=== PATIENT | female | born 1985 | race Caucasian/White ===

== ENCOUNTER → 2017-07-21 14:58 | Outpatient (CLI) | payer OTHER, SELFPAY ==
--- NOTE | 2017-07-21 15:04 | RAD_ITS ---
STUDY: X-RAY - THORACIC SPINE REASON FOR EXAM: Female, 32 years old. Pain behind shoulder blade. TECHNIQUE: 3 view(s) of the thoracic spine were obtained. COMPARISON: None. FINDINGS: Normal kyphosis of the thoracic spine. There is no substantial scoliosis. Normal thoracic vertebrae and endplates. Normal disc space heights. The soft tissue structures are unremarkable. RAD/Thoracic Spine 3 Views IMPRESSION: No significant abnormality identified. Electronically Signed: Sam Serrano MD at 19:08 EST , Service support ,
== END ==
PROVIDERS: Family Provider Family Medicine; PCP Family Medicine; Visit Provider Family Medicine
DX: M54.6 Pain in thoracic spine (principal)
CPT/HCPCS: 72072

== ENCOUNTER → 2017-08-31 07:06 | Outpatient (CLI) | payer OTHER, SELFPAY ==
--- NOTE | 2017-08-31 07:45 | MRI_ITS ---
STUDY: MRI THORACIC SPINE WITHOUT CONTRAST REASON FOR EXAM: Female, 32 years old. right sided thoracic pain, pain beneath scapula ( internal). TECHNIQUE: Standardized fat and water weighted pulse sequences were obtained in the sagittal and axial planes. COMPARISON: None. FINDINGS: Normal kyphosis of the thoracic spine. There is no substantial scoliosis. T1-2, T2-3, T3-4, T4-5, T5-6, T6-7, T7-8, T8-9, T9-10, T10-11, T11-12: Normal endplates. Normal disc hydration, heights and morphology of the corresponding intervertebral discs. Normal central canal and intervertebral neural foramina at the corresponding levels. Normal visualized thoracic cord. The soft tissue structures are unremarkable. MRI/Spine Thoracic (Routine) IMPRESSION: Normal unenhanced MRI examination of the thoracic spine. Electronically Signed: Almas Santiago MD at 8:39 EDT Tel , Service support ,
== END ==
PROVIDERS: Family Provider Family Medicine; PCP Family Medicine; Visit Provider Family Medicine
DX: M54.6 Pain in thoracic spine (principal)
CPT/HCPCS: 72146

== ENCOUNTER → 2017-11-17 15:16 | Outpatient (CLI) | payer OTHER, SELFPAY ==
--- NOTE | 2017-11-17 15:18 | RAD_ITS ---
STUDY: X-RAY - CERVICAL SPINE REASON FOR EXAM: Female, 32 years old. Pain. TECHNIQUE: 5 view(s) of the cervical spine were obtained. COMPARISON: None FINDINGS: Normal anterior atlantoaxial articulation. Normal odontoid process. Normal cervical lordosis. Normal vertebral bodies and endplates. Normal disc space heights. Normal visualized intervertebral neuroforamina. The soft tissue structures are unremarkable. There is no demonstrated fracture of the cervical spine. RAD/Cerv Spine 4 or 5 Views IMPRESSION: Normal x-ray examination of the visualized cervical spine. Electronically Signed: Abelino Jenkins MD at 23:56 EDT , Service support ,
== END ==
PROVIDERS: Family Provider Family Medicine; PCP Family Medicine; Visit Provider Nurse Practitioner Family
DX: M54.2 Cervicalgia (principal)
CPT/HCPCS: 72050

== ENCOUNTER 2018-07-11 09:05 | Emergency (ER) | payer BC, SELFPAY ==
[2018-07-11 09:06] VITALS: BP 149/97; PULSE 114; RESP 16; TEMP 36.3; O2SAT 98; BMI 28.3
--- NOTE | 2018-07-11 09:17 | ED.VISSUMM ---
- ER Visit Summary Date of Service: 07/11/18 Chief Complaint: Headache History of Present Illness: The patient is a 33 F who presents with a headache that has been getting worse over the past week. Patient states the pain started in her neck and migrated to the occipital area of her scalp and then to the top of her head. Patient denies any trauma or injury. Patient states nothing seems to make it better or worse. Patient does admit to some mild photophobia. Patient denies any visual changes. Patient denies any paresthesias or weakness. Patient denies any nausea or vomiting. Patient denies any fevers or chills. Patient states she did go to a chiropractor but that did not help. Physical Examination: Vital signs are stable. Patient is afebrile. Patient is in no acute distress. Cranial nerves II through XII are intact. There are no focal motor or sensory deficits noted. Pupils are equal, round, reactive to light bilaterally. Extraocular muscles are intact. Funduscopic examination is benign. Neck is supple. There is paraspinal tenderness. There is no midline tenderness. There is some mild spasm of the cervical paraspinal muscles. There is good range of motion. There is no meningismus noted. Heart was regular rate and rhythm. Lungs are clear and equal bilaterally. The remaining physical exam is within normal limits. Emergency Department Course and Treatment: Patient was given injections of Toradol and Norflex here. Patient was given prescriptions for Naprosyn and Flexeril. Patient was instructed to follow-up with her primary care physician in 5-7 days. Patient understood and was agreeable with the plan. All questions were answered. Disposition: Discharge home Impression: Tension cephalgia This note was generated with [employer] dictation software. It may contain incorrect words, spelling, and punctuation that were not noted in review of the chart prior to signing ED Disposition - Plan for ED Patient: Disposition: Home or Assisted Living Diagnosis: Tension headache Instructions: ED Headache Tension Prescriptions: Cyclobenzaprine [Flexeril] 10 mg PO QHS PRN PRN #10 tab PRN Reason: Muscle Spasm Naproxen [Naprosyn] 500 mg PO BID PRN #20 tab Referrals: Baljit Leiva DO [Primary Care Provider] -
[2018-07-11] MEDS: Orphenadrine 60 MG/2 ML Ampul IM (09:29)
[2018-07-11] MEDS: Ketorolac 60 MG/2 ML Vial IM (09:30)
[2018-07-11 09:50] VITALS: PULSE 91; RESP 14; O2SAT 95
== END 2018-07-11 09:51 | disposition home or self-care (01) ==
LOC: ED 09:39
PROVIDERS: Emergency Provider Emergency Medicine; Family Provider Family Medicine; PCP Family Medicine
DX: G44.209 Tension-type headache, unspecified, not intractable (principal); M62.838 Other muscle spasm; Z72.0 Tobacco use
CPT/HCPCS: 96372; 99282

== ENCOUNTER 2018-11-06 20:12 | Emergency (ER) | payer BC, SELFPAY ==
[2018-11-06 20:12] VITALS: BP 138/90; PULSE 94; RESP 18; TEMP 36.9; O2SAT 98; BMI 30.4
[2018-11-06 21:00] LABS: Mucous, Urine 0 SEEN /hpf (<or=2+)
[2018-11-06 21:05] LABS: Color, Urine Yellow (Yellow); Glucose, Dipstick Normal (Normal); Ketone-Dipstick Negative (Negative); Leukocyte Esterase-Dipstick 500 /ul (Negative); Nitrite-Dipstick Negative (Negative); Occult Blood-Urine 250 /ul (Negative); Protein-Dipstick 30 mg/dl (Negative); Urine Bilirubin Dipstick Negative (Negative); Urine Clarity Sl. Cloudy (Clear); Urine Urobilinogen Normal (Normal)
[2018-11-06] MEDS: Ondansetron 4 MG/2 ML Vial IV (21:10)
[2018-11-06] MEDS: 0.9% Normal Saline 1,000 ML 125 ML IV (21:10)
[2018-11-06] MEDS: Ketorolac 30 MG/ML Syringe IV (21:11)
[2018-11-06] MEDS: Morphine 4 MG/ML Syringe IV (21:11)
[2018-11-06 21:15] LABS: Absolute Lymphocyte Count 4.19 X10^3/ul (0.83-4.51); Absolute Neutrophil Count 4.3 X10^3/uL (2.0-7.7); Basophil# 0.02 X10^3/uL; Basophil% 0.2 % (0-1); Differential Indicated SCAN CRITERIA MET; Eosinophil# 0.25 X10^3/uL; Eosinophils% 2.7 % (0-5); Hemoglobin 15.6 g/dl (12.0-15.0); Lymphocyte # 4.19 X10^3/ul (4.0); Lymphocyte % 44.4 % (19-41); Mean Corp Hgb Conc 34.7 g/gl (32-36); Mean Corpuscular Hgb 31.2 pg (27.0-32.0); Mean Platelet Vol. 10.2 fl (6.2-12.0); Monocyte# 0.65 X10^3/uL; Monocyte% 6.9 % (0-10); Neutrophil # 4.31 X10^3/uL (2.7-7.7); Neutrophil % 45.7 % (47-70); POSITIVE COUNT NO; POSITIVE DIFFERENTIAL NO; POSITIVE MORPHOLOGY YES; Platelet Count 210 K/mm3 (150-450); RBC Distribution Width CV 12.8 % (11.6-14.6); RBC Distribution Width SD 41.9 fl (35.1-43.9); White Blood Count 9.4 K/mm3 (4.4-11.0)
[2018-11-06 21:27] LABS: White Blood Cells 25-50 SEEN /hpf (0-5)
[2018-11-06 21:28] LABS: Bacteria 4+ /hpf (None Seen); Red Blood Cells-Urine 5-10 SEEN /hpf (0-5); Squamous Epithelial Cells - UA 50-100 SEEN /hpf (5-10)
[2018-11-06 21:34] LABS: Differential Comment SCANNED
[2018-11-06 21:37] LABS: Anion Gap 5 (5-15); BUN 14 mg/dL (7-18); BUN/Creat Ratio 16.5 RATIO (10-20); Chloride 110 mmol/L (98-107); Creatinine, Serum 0.85 mg/dL (0.55-1.02); EST Glomerular Filtration Rate 83 mL/min (>60); Est Glom Filt Rate - Afr Amer 101 mL/min (>60); Estimated Creatinine Clearance 79.33 ml/min; Glucose 86 mg/dL (74-106); Potassium 3.7 mmol/L (3.5-5.1); Sodium Level 140 mmol/L (136-145)
[2018-11-06 21:56] LABS: Internal QC Validated? YES +Cl - CLEAR BKGD; Pregnancy, Serum, hCG Quali. NEGATIVE Negative
--- NOTE | 2018-11-06 22:04 | ED.VISSUMM ---
- ER Visit Summary Date of Service: 11/06/18 Chief Complaint: [Abdominal cramping] History of Present Illness: The patient is a 33 F [resents the emergency department with abdominal cramping that started yesterday. Patient rates her pain an 8 out of 10. Patient denies any fever. She denies any blood in her stool or black tarry stool. She denies nausea or vomiting. She has not had any diarrhea. She denies urinary symptoms. Patient states that she has had some irregular periods ever since she has had her Mirena and she has frequently had similar abdominal pain and cramping in the past. Patient is tried Aleve at home without any relief of her symptoms.] Physical Examination: [HEENT-PERRLA, EOMI. Cranial nerves II through XII grossly intact. TMs clear. Mucous membranes moist. No adenopathy. Cardiovascular-regular rate and rhythm without murmur or ectopy Lungs-clear to auscultation, chest wall stable without crepitus or subcu emphysema Abdomen-normoactive bowel sounds, soft. Patient has tenderness to palpation over the suprapubic region. There is no rebound, rigidity, or perineal signs. No pain over McBurney's. Negative heel strike negative obturator sign. Extremities-intact ?4, normal range of motion, normal pulses, atraumatic] Test Results: [CBC with differential obtained showing a 9.4, hemoglobin 15.6, hematocrit 45, placed 210. Chemistries unremarkable. Urinalysis showed 500 leukocytes and 25-50 WBCs however she had 50-100 epis and +4 bacteria.] Emergency Department Course and Treatment: [She was medicated with Toradol, morphine, and Zofran. Patient had good pain relief with that. At this point I do not feel any imaging is indicated.] Treatment Plan: [Follow-up with primary care physician and CREDIT REPORTING CLERK within next 3 to 5 days. Patient will be given a prescription for a few [place] for severe pain as well as Naprosyn.] Disposition: [Discharged home stable condition.] Impression: [Abdominal pain-etiology uncertain] This note was generated with [employer] dictation software. It may contain incorrect words, spelling, and punctuation that were not noted in review of the chart prior to signing ED Disposition - Plan for ED Patient: Referrals: Baljit Leiva DO [Primary Care Provider] -
--- NOTE | 2018-11-06 22:09 | ED.DCSUM_ITS ---
- ER Visit Summary Date of Service: 11/06/18 Chief Complaint: [Abdominal cramping] History of Present Illness: The patient is a 33 F [resents the emergency department with abdominal cramping that started yesterday. Patient rates her pain an 8 out of 10. Patient denies any fever. She denies any blood in her stool or black tarry stool. She denies nausea or vomiting. She has not had any diarrhea. She denies urinary symptoms. Patient states that she has had some irregular periods ever since she has had her Mirena and she has frequently had similar abdominal pain and cramping in the past. Patient is tried Aleve at home without any relief of her symptoms.] Physical Examination: [HEENT-PERRLA, EOMI. Cranial nerves II through XII grossly intact. TMs clear. Mucous membranes moist. No adenopathy. Cardiovascular-regular rate and rhythm without murmur or ectopy Lungs-clear to auscultation, chest wall stable without crepitus or subcu emphysema Abdomen-normoactive bowel sounds, soft. Patient has tenderness to palpation over the suprapubic region. There is no rebound, rigidity, or perineal signs. No pain over McBurney's. Negative heel strike negative obturator sign. Extremities-intact ?4, normal range of motion, normal pulses, atraumatic] Test Results: [CBC with differential obtained showing a 9.4, hemoglobin 15.6, hematocrit 45, placed 210. Chemistries unremarkable. Urinalysis showed 500 leukocytes and 25-50 WBCs however she had 50-100 epis and +4 bacteria.] Emergency Department Course and Treatment: [She was medicated with Toradol, morphine, and Zofran. Patient had good pain relief with that. At this point I do not feel any imaging is indicated.] Treatment Plan: [Follow-up with primary care physician and SLITTING MACHINE OPERATOR HELPER within next 3 to 5 days. Patient will be given a prescription for a few [place] for severe pain as well as Naprosyn.] Disposition: [Discharged home stable condition.] Impression: [Abdominal pain-etiology uncertain] This note was generated with [employer] dictation software. It may contain incorrect words, spelling, and punctuation that were not noted in review of the chart prior to signing ED Disposition - Plan for ED Patient: Referrals: Baljit Leiva DO [Primary Care Provider] -
--- NOTE | 2018-11-06 22:11 | DCINST.ED_ITS ---
ED Disposition - Plan for ED Patient: Instructions: ED Abdominal Pain Unkn Cause Prescriptions: Hydrocodone Bitart/Apap 5-325 [[place] 5MG-325MG] 1 tab PO Q4H PRN PRN 2 Days #10 tab PRN Reason: Pain Referrals: Baljit Leiva DO [Primary Care Provider] - Vero Fierro MD [STAFF PHYSICIAN] - 3-5 Days
[2018-11-06 22:23] VITALS: BP 138/100; PULSE 79; RESP 16; O2SAT 98
[2018-11-06] MEDS: HYDROcodone Bitartrate/Apap 5/325 Tablet PO (22:25)
--- NOTE | 2018-11-06 22:27 | ED.RN ---
PT GIVEN WRITTEN AND VERBAL DISCHARGE INSTRUCTIONS AND HOME GOING PRESCRIPTIONS. PT VERBALIZES UNDERSTANDING AND DENIES ANY FURTHER QUESTIONS EDUCATED NOT TO DRIVE FOR 6 HOURS AFTER HAVING NARCOTIC MEDICATION. IV D/C BY JJ BENJAMIN. PT VERBALIZES UNDERSTANDING AND DENIES ANY FURTHER QUESTIONS. AMBULATES OUT OF DEPT WITH FRIEND.
== END 2018-11-06 22:29 | disposition home or self-care (01) ==
PROVIDERS: Emergency Provider Emergency Medicine; Family Provider Family Medicine; PCP Family Medicine
DX: R10.9 Unspecified abdominal pain (principal); Z72.0 Tobacco use
CPT/HCPCS: 80048; 81001; 84703; 85025; 96361; 96374; 96375; 99284; J7030; J2405

== ENCOUNTER → 2019-01-26 11:53 | Outpatient (CLI) | payer BC, SELFPAY ==
[2019-02-02 12:53] LABS: HPV APTIMA, High Risk Positive (Negative)
== END ==
PROVIDERS: Visit Provider Obstetrics & Gynecology
DX: Z12.4 Encounter for screening for malignant neoplasm of cervix (principal)
CPT/HCPCS: 87624; 88175; G0145

== ENCOUNTER 2019-02-23 07:06 | Day surgery (SDC) | payer OTHER, BC, SELFPAY ==
[2019-02-20 15:33] LABS: Hematocrit 45.1 % (37-47); Hemoglobin 15.1 g/dL (12.0-15.0); Mean Corp Hgb Conc 33.5 g/dL (32-36); Mean Corpuscular Hgb 30.1 pg (27.0-32.0); Mean Corpuscular Volume 89.8 fL (81-99); Mean Platelet Vol. 11.1 fl (6.2-12.0); Platelet Count 195 K/mm3 (150-450); RBC Distribution Width CV 12.3 % (11.6-14.6); RBC Distribution Width SD 40.3 fl (35.1-43.9); Red Blood Count 5.02 M/mm3 (4.2-5.4)
[2019-02-20 15:39] LABS: Prothrombin Time (Protime)PT. 12.5 SECONDS (11.7-14.9)
[2019-02-20 15:40] LABS: Partial Thromboplast Time 32.8 Seconds (24.1-36.2)
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
--- NOTE | 2019-02-23 | IMM_PTH ---
PATIENT: LAWANDA GARCIA [place] [facility] [place][id number] AGE/SX: 33/F ROOM: RE02/23/[address]: Dr. Vero Pinto MD : 1985 BED: DIS: 02/23/2019 SPEC #: [id number] RECD: 02/24/19 12:48 STATUS: SAQIB REQ #: [id number] PRIYA: 02/23/19 00:[address]: Vero Guerrero DEPT: IMMUNOHISTOCHEMISTRY RECD BY: Lenore Mendes ENTERED: 02/24/19 12:49 SP TYPE: IMMUNO OTHR DR: Dr. Baljit Leiva, DO Tissues: A - Uterine cervix, NOS Procedures: p16 (initial) KI-67 (add) PHYSICIAN & INSTITUTION [place] [address] SPECIMEN INFORMATION: Tissue Source: A - Ectocervix, LEEP conization Clinical Info: HGSIL Specimen Number: [id number] CPT code: 45611, 32933 METHODOLOGY: Deparaffinized sections of prefer/formalin-fixed tissue or PAP/DQ stained slides are incubated with monoclonal/polyclonal antibodies/oligonucleotide probes. Localization is made via biotin free immunoperoxidase method. Appropriate controls are performed and reacted as expected. Results on target cell population are indicated in the following table: RESULTS: ANTIBODY / CLONE RESULT Block A P16 (E6H4) positive, strong, block-like Ki-67 (30-9) positive, moderate These tests were developed and their performance characteristics determined by [facility]. They may not have been cleared or approved by the U.S. Food and Drug Administration. The FDA has determined that such clearance or approval is not necessary. INTERPRETATION: A. Ectocervix, LEEP conization: Severe squamous dysplasia, RHONDA III (HSIL). AM:jennifer 02/27/19
[2019-02-23 07:24] VITALS: BP 135/91; PULSE 79; RESP 18; TEMP 36.4; O2SAT 98; BMI 32.1
[2019-02-23 07:27] LABS: Internal QC Validated? YES +Cl - CLEAR BKGD; Pregnancy, Urine Negative Negative
[2019-02-23] MEDS: Lactated Ringers 1,000 ML 100 ML IV (07:35)
--- NOTE | 2019-02-23 08:45 | CONE_PTH ---
PATIENT: LAWANDA GARCIA LOC: [facility] [place] U#:[id number] AGE/SX: 33/F ROOM: RE02/23/[address]: Dr. Vero Pinto MD : 1985 BED: DIS: 02/23/2019 SPEC #: [id number] RECD: 02/23/19 11:40 STATUS: SAQIB REFede #: [id number] PRIYA: 02/23/19 08:[address]: Vero Guerrero DEPT: SURGICAL PATHOLOGY RECD BY: Fazal Avendaño ENTERED: 02/23/19 13:16 SP TYPE: Leep Cone PHIL DR: Dr. Baljit Leiva, DO Tissues: A - UTERINE CERVIX LEEP B - UTERINE CERVIX LEEP C - Endocervical Procedures: Surgery Specimen Level IV Surgery Specimen Level V HEADER OPERATION: Colposcopy, LEEP cone PRE-OP DIAGNOSIS: HGSIL on cytologic smear of cervix TISSUE SUBMITTED: A - Ectocervix open at 9 o'clock, B - Top hot cervix, C - Endocervical curettings MICROSCOPIC DIAGNOSIS A. Ectocervix, LEEP conization: Severe squamous dysplasia, RHONDA III (HSIL). Squamous metaplasia and chronic inflammation. Margins of excision are free of dysplasia. B. Top hot of cervix, LEEP conization: Endocervix with minimal chronic inflammation. No evidence of dysplasia. C. Endocervix, curettings: Fragments of benign endocervix. No evidence of dysplasia. AM:jennifer 02/24/19 COMMENT A. Results from immunohistochemistry ([id number]) for surrogate HPV marker (p16) will be reported separately. Severe dysplasia extends into the endocervical glands. Case has been reviewed in consultation with Dr. Fierro who concurs with the above diagnosis. IDC:LUIS MICROSCOPIC DESCRIPTION Slides are reviewed. GROSS DESCRIPTION A - Received in fixative is one container labeled with the patient's name and designated ectocervix open at 9 o'clock. The specimen consists of a king, indurated piece of tissue measuring 2 x 2.5 x 0.5 cm. No ectocervical lesion is identified. The nonmucosal surface is inked black. The endocervical opening is inked blue. The specimen is serially sectioned and submitted entirely in four cassettes as follows: 1 - 12 to 3 o'clock, 2 - 3 to 6 o'clock, 3 - 6 to 9 o'clock, 4 - 9 to 12 o'clock. B - Received in fixative is one container labeled with the patient's name and designated top hat cervix. The specimen consists of a king, indurated piece of LEEP conization measuring 1.5 x 1 x 3.7 cm. The specimen is serially sectioned and submitted entirely in two cassettes. C - Received in fixative is one container labeled with the patient's name and designated endocervical curettings. The specimen consists of a scant amount of soft tissue. The specimen is totally submitted for cell block preparation. / SJ:rg 02/23/19 TC:0 CPT: 79716, 29709 x2
[2019-02-23] MEDS: ACETIC ACID 1,000 ML IRRIG.SOLN 1000 ML IR (09:04)
[2019-02-23] MEDS: Iodine/Potassium Iodide 14ML Bottle 1 DRP TOPICAL (09:05)
--- NOTE | 2019-02-23 09:24 | PCM.OPRPT ---
Problem List (1) HGSIL (high grade squamous intraepithelial lesion) on Pap smear of cervix Status: Acute Report of Operation Date of Procedure: 02/23/19 Pre-Operative Diagnosis: HGSIL Post-Operative Diagnosis: HGSIL Surgery/Procedure Performed:: Colposcopy. LEEP Description of Surgical Findings:: Mosaicism at 2:00. Lugol's resistance 360 degrees. furnace room supervisor: Carmela Veloz Type of Anesthesia:: Local MAC Anesthesiologist: Hamzah Hernandez Specimen's removed: 1. ectocervix. 2. top hat. 3. Endocervical curettings Estimated Blood Loss (mL): 10 Fluids Replaced: 1400 ml Description of Procedure: Indications: 32-year-old nulligravida was found to have an HGSIL Pap. She is planning hysterectomy for chronic pelvic pain. Following counseling opted to proceed with colposcopic LEEP. Risks, benefits, indications and alternatives reviewed. Procedure: The patient was taken to the operating room and signed and was performed. She is placed in the dorsal supine position and induced under MAC. She was then repositioned to dorsolithotomy. The perineum was prepped and draped in sterile fashion. The patient was placed into high lithotomy and an insulated speculum placed into the vagina. Acetic acid solution was applied and satisfactory colposcopy performed. Lugol's solution was subsequently applied with near global Lugol's resistance. Paracervical block was placed using a total of 20 cc of 1% lidocaine with 1 and 100,000 epinephrine. LEEP was subsequently performed with ectocervical biopsy. This was followed by excision of a Top-Hat and endocervical curetting. The LEEP excisional bed was fulgurated using the ball electrode. Monsel solution was applied for additional hemostasis with excellent hemostasis obtained. The procedure was completed. The speculum was removed from the vagina. The patient was placed into dorsal supine position, awakened and transferred to the recovery room without complication. Sponge counts were correct x2. The patient tolerated the procedure well. - Complications None - Admit VTE Documentation VTE Present on Admission: No VTE Mechan Device Prophylaxis: [facility] Pharm Prophylaxis ordered?: No
[2019-02-23 09:31] VITALS: BP 110/68; BP 135/91; PULSE 79; RESP 16; TEMP 37.1; O2SAT 96
[2019-02-23 09:35] VITALS: BP 118/70; BP 135/91; PULSE 73; RESP 16; O2SAT 97
--- NOTE | 2019-02-23 09:35 | PCM.DC.LEE ---
Discharge Diet: No Restrictions Discharge Activity: Return to Normal Activity, May not drive while taking narcotic pain medications., - - No driving for 24-48 hours May resume sexual activity in: 4 weeks Lifting Restrictions: 10-20 lb Call your doctor if you observe: Fever of 101 or Higher, Inability to urinate, Inability to have a bowel movement, Using more than one pad per hour, Shortness of breath, Chest pain, Calf discomfort, Uncontrolled pain Suture Line Care: Avoid Pulling/Pushing Allergies/Adverse Reactions: Allergies No Known Allergies Allergy (Verified 02/23/19 07:24) Medications to take at Discharge cycloBENZAPRine HCl [Flexeril] 10 mg PO QHS PRN PRN #10 tab 07/11/18 Ibuprofen 600 mg PO TID PRN 7 Days #30 tab 02/23/19 Oxycodone [Oxyir] 5 mg PO Q6H PRN PRN 3 Days #5 tablet 02/23/19 The following prescriptions were given: Ibuprofen 600 mg PO TID PRN 7 Days #30 tab PRN Reason: Pain Score 1-10/10 Transmission Status: Pending to [facility] Oxycodone [Oxyir] 5 mg PO Q6H PRN PRN 3 Days #5 tablet PRN Reason: Pain Score 6-10/10 Transmission Status: Sent to [facility] Primary Care Physician: Baljit Leiva DO [Primary Care Provider] - Test Results: Test results from this visit will be discussed in further detail at your follow-up appointment, if applicable. Please Follow Up With: Vero Fierro MD When: 2-4 weeks
[2019-02-23 09:40] VITALS: BP 113/68; BP 135/91; PULSE 73; RESP 16; O2SAT 97
[2019-02-23 09:53] VITALS: BP 117/74; BP 135/91; PULSE 71; RESP 16; TEMP 36.5; O2SAT 97
[2019-02-23] MEDS: HYDROcodone Bitartrate/Apap 5/325 Tablet PO (10:37)
[2019-02-23 10:38] VITALS: BP 135/91
== END 2019-02-23 10:51 | disposition home or self-care (01) ==
LOC: SDC 07:08 → AC 07:08
PROVIDERS: Anesthesiology; Family Provider Family Medicine; PCP Family Medicine; Referring Provider Obstetrics & Gynecology; Visit Provider Obstetrics & Gynecology
PROC: 0UBC7ZZ Excision of Cervix, Via Natural or Artificial Opening (ICD-10-PCS; CPT 57522; principal; 2019-02-23 08:30)
DX: D06.1 Carcinoma in situ of exocervix (principal); R10.2 Pelvic and perineal pain; G89.29 Other chronic pain; F17.200 Nicotine dependence, unspecified, uncomplicated
CPT/HCPCS: 00940; 57461; 36415; 81025; 85027; 85610; 85730; 86850; 86900; 86901; 88305; 88307; 88341; 88342; J7120; J2405

== ENCOUNTER 2019-03-07 14:45 | Emergency (ER) | payer OTHER, BC, SELFPAY ==
[2019-03-07 14:46] VITALS: BP 151/101; PULSE 74; RESP 18; TEMP 36.4; O2SAT 100; BMI 32.2
--- NOTE | 2019-03-07 15:15 | ED.DCSUM_ITS ---
- ER Visit Summary Date of Service: 03/07/19 Chief Complaint: Pelvic cramps History of Present Illness: The patient is a 33 F who presents the emergency department with continued pelvic cramps. She tells me none of her symptoms are new and have been going on for weeks. Approximately 12 days ago she had a cervical biopsy performed by Dr. Fierro. She reports that the biopsy came back as precancerous cells but they believe they had removed all of them. She states that the brown bleeding that she had had is since resolved and now she is having her usual red menstrual bleeding. It has been irregular for months. She tells me that she is scheduled for a partial hysterectomy towards the end of . She has been taking ibuprofen and states she is been taking it so much she is beginning to have epigastric discomfort. No black or bloody stools. No fevers. She was going to go to Dr. Toshia Pinto's office today but did not know if she could just drop in. So she came to the emergency department. Again she tells me that none of her symptoms today are different than what they were approximately a week ago or even about a month ago. Physical Examination: Afebrile vital signs are stable Gen: Well-nourished well-developed patient appears uncomfortable holding her lower abdomen. Head: Normocephalic atraumatic Eyes: Perrl EOMI ENT: TMs clear no rhinorrhea moist mucous membranes Neck: Supple no lymphadenopathy no JVD nontender CVS: Regular rate rhythm no murmurs normal S1-S2 Respiratory: No distress clear to auscultation bilaterally chest nontender Abdomen: Soft mild discomfort to palpation in the lower abdomen nondistended normal bowel sounds no masses Extremity: Nontender no edema Skin: Normal color no rash Neuro: alert orientated ?3 CN II-XII intact normal strength is all extremities x4 Psych: Patient is tearful Test Results: [] Emergency Department Course and Treatment: Patient reports having had a test performed and per the computer this was on 02/23/19. She denies any risk of since that test. Therefore a test was not repeated. Patient received an IM dose of Toradol. I did speak with Dr. Elizabeth Pinto who recommends we stop the ibuprofen and trial diclofenac. I will also write for a few OxyIR. Patient is comfortable with this plan. I also advised her that given that she has been taking anti-inflammatories and notes some upset stomach she should also take Pepcid. Impression: 1. Pelvic cramps This note was generated with [employer] dictation software. It may contain incorrect words, spelling, and punctuation that were not noted in review of the chart prior to signing ED Disposition - Plan for ED Patient: Disposition: Home or Assisted Living Instructions: Dysmenorrhea Prescriptions: Oxycodone [Oxyir] 5 mg PO Q6H PRN PRN 3 Days #12 tab PRN Reason: pain Prescription Printed Famotidine [Pepcid] 20 mg PO BID #28 tab Prescription Printed Diclofenac [Voltaren] 50 mg PO TIDCM PRN #30 tab PRN Reason: pain Prescription Printed Referrals: Vero Fierro MD [STAFF PHYSICIAN] - Keep Raffaele appointment
[2019-03-07] MEDS: Ketorolac 60 MG/2 ML Vial IM (15:40)
== END 2019-03-07 16:07 | disposition home or self-care (01) ==
PROVIDERS: Emergency Provider Emergency Medicine
DX: R10.2 Pelvic and perineal pain (principal)
CPT/HCPCS: 96372; 99282

== ENCOUNTER 2019-03-23 09:53 | Observation (INO) | payer OTHER, BC, SELFPAY ==
[2019-03-23] VITALS (9 sets, daily range): BP systolic 106–136; BP diastolic 67–88; PULSE 68–89; RESP 14–18; TEMP 36.7–37.1; O2SAT 93–99; BMI 32.3
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
[2019-03-23] MEDS: Lactated Ringers 1,000 ML 100 ML IV ×2 (06:08→08:30)
[2019-03-23 06:16] LABS: Hematocrit 44.6 % (37-47); Mean Corp Hgb Conc 33.6 g/dL (32-36); Mean Corpuscular Hgb 30.2 pg (27.0-32.0); Mean Corpuscular Volume 89.7 fL (81-99); Mean Platelet Vol. 10.5 fl (6.2-12.0); Platelet Count 209 K/mm3 (150-450); RBC Distribution Width CV 12.2 % (11.6-14.6); RBC Distribution Width SD 40.2 fl (35.1-43.9); Red Blood Count 4.97 M/mm3 (4.2-5.4); White Blood Count 7.8 K/mm3 (4.4-11.0)
[2019-03-23 06:17] LABS: Internal QC Validated? YES +Cl - CLEAR BKGD; Pregnancy, Urine Negative Negative
[2019-03-23 06:20] LABS: Prothrombin Time (Protime)PT. 12.8 SECONDS (11.7-14.9)
[2019-03-23 06:21] LABS: Partial Thromboplast Time 32.2 Seconds (24.1-36.2)
--- NOTE | 2019-03-23 07:15 | HYST_PTH ---
PATIENT: LAWANDA GARCIA LOC: [facility]3 U#:[id number] AGE/SX: 33/F ROOM: MS311 RE03/23/[address]: Dr. Vero Pinto MD : 1985 BED: 1 DIS: 03/23/2019 SPEC #: [id number] RECD: 03/23/19 12:35 STATUS: SAQIB REFede #: [id number] PRIYA: 03/23/19 07:[address]: Vero Guerrero DEPT: SURGICAL PATHOLOGY RECD BY: Fazal Avendaño ENTERED: 03/23/19 13:42 SP TYPE: HYSTERECT OTHR DR: No Primary Care Phys Tissues: Uterus, NOS Procedures: Surgery Specimen Level V HEADER OPERATION: Hysterectomy, lap assisted vaginal, salpingectomy PRE-OP DIAGNOSIS: Endometriosis; excessive and frequent menstruation; HGSIL; perineal pain TISSUE SUBMITTED: Uterus, bilateral fallopian tubes MICROSCOPIC DIAGNOSIS Uterus, bilateral fallopian tubes, hysterectomy, salpingectomy: Cervix - chronic inflammation. - changes consistent with previous biopsy site. - negative for dysplasia. Endometrium - consistent with exogenous hormone effects. Myometrium - no pathologic diagnosis. Bilateral fallopian tubes - no pathologic diagnosis. Intrauterine device (T-shaped) - gross only (well positioned in the endometrial cavity). SJ:rg 03/27/19 COMMENT The entire cervix is examined. Please make reference to previous specimen ([id number]), ectocervix, LEEP conization with diagnosis of severe squamous dysplasia and margins of excision are free of dysplasia and top hot of cervix, LEEP conization with diagnosis of endocervix with minimal chronic inflammation and endocervix, curettings with diagnosis of no evidence of dysplasia. MICROSCOPIC DESCRIPTION Slides are reviewed. GROSS DESCRIPTION Received in fixative is one container labeled with the patient's name and designated uterus, bilateral fallopian tubes. The specimen consists of a hysterectomy specimen consisting of uterus with cervix and detached bilateral fallopian tubes. The uterus with cervix weighs 40 gm and measures 7 x 4 x 3 cm. The serosal surface shows a focal king-white area, otherwise white-king, glistening and unremarkable. The ectocervical mucosa is unremarkable. The external os is oval and patulous in contour. The endocervical canal measures 2 cm in length and the endocervical mucosa is king, glistening and unremarkable. The triangular endometrial cavity measures 4 cm in length and 2 cm in width. The endometrial cavity contains a T-shaped intrauterine device. The horizontal portion of the T measures 3.5 cm and the vertical portion measures 3 cm in length. It is well positioned in the endometrial cavity. The endometrium is king, glistening without any mass lesion and measures 0.1 cm in thickness. Most of the endometrial cavity is denuded. Sections of the uterine wall do not reveal any mass lesion and measures up to 1.5 cm in thickness. The fallopian tubes are not identified as right or left. One of the fallopian tubes measure 6 cm in length and 0.5 cm I diameter. The second fallopian tube is 5 cm in length and 0.5 cm in diameter. Both fallopian tubes show fimbrial ends. Sections reveal unremarkable cut surfaces. Cableway Operator sections are submitted in eight cassettes as follows: 1 - anterior cervix, 2 - posterior cervix, 3 & 4 - anterior uterine wall, 5 & 6 - posterior uterine wall, 7 & 8 - each cassette contains one fallopian tube. / LUIS:jennifer 03/23/19 The rest of the cervix is submitted in four more cassettes, 9-4. / LUIS:jennifer 03/24/19 TC:5 CPT: 46082
[2019-03-23] MEDS: Vasopressin 20 UNITS/ML Vial (07:48)
[2019-03-23] MEDS: Bupivacaine Mpf 0.5% 30 ML VIAL (08:10)
--- NOTE | 2019-03-23 09:57 | PCM.OPRPT ---
Problem List (1) Chronic pelvic pain in female Status: Chronic (2) Excessive and frequent menstruation with irregular cycle Status: Acute Report of Operation Date of Procedure: 03/23/19 Pre-Operative Diagnosis: Chronic pelvic pain, abnormal uterine bleeding Post-Operative Diagnosis: Chronic pelvic pain, normal uterine bleeding, endometriosis Description of Surgical Findings:: Peritoneal endometriosis along the left uterosacral ligament Normal-appearing uterus and tubes with polycystic right ovary account support associate: Natali Greene Type of Anesthesia:: General Anesthesiologist: Ananda Grande Specimen's removed: Uterus, cervix, bilateral tubes Estimated Blood Loss (mL): 75 Fluids Replaced: 1700 Description of Procedure: Indications: 33-year-old 1 para 0-0-1-0 with a history of chronic pelvic pain, and excessive and frequent menstruation with irregular bleeding refractory to medical [id number] LAVH, bilateral salpingectomy. She is counseled regarding procedural risks, benefits, indications and alternatives. Informed consent was obtained. Procedure: The patient was brought to the operating room and signed was performed. She is placed in the dorsal supine position and induced under general anesthesia. She is placed into dorsolithotomy and the arms were tucked at her sides. And examination under anesthesia was performed. The perineum and abdomen were prepped and draped in sterile fashion. The patient was placed in the high lithotomy and Andino catheter relation performed. The second was placed in the vagina and cervix grasped using a tenaculum at the anterior cervical lip. The sounded to 7 cm. The cervix was subsequently up dilated and the at the Advincula uterine manipulator was placed and secured. The tenaculum was removed. The patient was then placed into low lithotomy attention turned to the abdomen. A supraumbilical incision was made and the varies needle placed with no aspirate however the hanging drop test was not successful and the pressure remained elevated. The Veress was removed and laparoscopic entry performed via the trocar with the scope present confirming entry into the abdominal cavity. The patient was placed into Trendelenburg. A tap block was placed in the right and left lower quadrants under lap scopic guidance. Incisions were placed at the sites and 5 mm ports also placed. A suprapubic incision was made following infiltration with half percent Sensorcaine as well and an additional 5 mill meter port was placed. The abdomen and pelvis were inspected. The ureter was visualized at the left. The distal left tubal fimbria was identified and the mesosalpinx coagulated and transected using the Enseal device to the level of the uterine cornua. The uterine ovarian ligament and round ligaments were coagulated inspected using the Enseal device. The anterior left broad ligament was opened and dissected with creation of the bladder flap. The uterine vessels were skeletonized and the uterine vessels were clamped and coagulated and cut using the Enseal device. The above procedures were also performed on the right however the right tube was totally transected from the uterine cornua and removed via the port to assist with visualization. Attention was turned to the perineum the patient was taken out of Trendelenburg and placed in the high lithotomy. The abdomen Advincula manipulator was removed. Circumferential incision was made along the cervicovaginal junction using the scalpel. Posterior colpotomy was made using a Clay scissors with entry into the posterior cul-de-sac. A long weighted speculum was placed into the posterior cul-de-sac. The vesicle met vaginal membrane was further dissected with identification of the anterior cul-de-sac peritoneum which was entered sharply. A curved Arvonia was placed to the anterior cul-de-sac. The uterosacral ligaments then cardinal ligaments were Guy clamped, cut and suture ligated using 0 Vicryl suture. 0 Vicryl was used for all sutures in this procedure. Following transection of the cardinal ligaments the uterus and left tube were removed. A modified Calvillo culdoplasty was performed using pursestrings suture of the peritoneum with the uterosacral pedicles. The vaginal cuff was closed using serial care of 8 sutures. The patient was placed into low lithotomy attention turned to the abdomen again. She is placed into Trendelenburg and the abdomen insufflated laparoscopy again performed. There was minimal oozing at the surgical site so Rafaela was placed with good hemostasis. The procedure was complete. The laparoscope and ports were removed and the abdomen was desufflated. The skin was closed using 4-0 Monocryl and additional Sensorcaine was placed for a total of 30 cc of half percent Sensorcaine for analgesia. OpSite dressing were placed over the incisions. The Andino catheter was removed. The patient was placed into dorsal supine position, awakened, extubated and transferred to the recovery room without complication. Sponge, needle and instrument counts were correct x2. - Complications None - Admit VTE Documentation VTE Present on Admission: No VTE Mechan Device Prophylaxis: SCD's VTE Pharm Prophylaxis ordered?: No
[2019-03-23] MEDS: Dextrose 5%-Lactated Ringers 1,000 ML 125 ML IV ×2 (10:54→12:29)
[2019-03-23] MEDS: oxyCODONE 5 MG Tablet PO ×2 (12:35→17:25)
[2019-03-23] MEDS: Ketorolac 30 MG/ML Syringe IV (14:40)
[2019-03-23] MEDS: Acetaminophen 500 MG Tablet 1000 MG PO (14:40)
[2019-03-23] MEDS: Ondansetron 4 MG/2 ML Vial IV (14:40)
[2019-03-23] MEDS: Enoxaparin 40 MG/0.4 ML Syringe SC (17:25)
--- NOTE | 2019-03-23 17:31 | DCINST_ITS ---
Discharge Diet: No Restrictions Discharge Activity: Return to Normal Activity, May not drive while taking narcotic pain medications., May Shower, - - No tub bath for 2 weeks May resume sexual activity in: 6 weeks Lifting Restrictions: 10 lb Call your doctor if your incision/area has: Continuous Slow Oozing, Sudden Increased Bleeding, Increased Pain/ Swelling, Increased Redness, Foul Smelling Discharge Call your doctor if you observe: Fever of 101 or Higher, Inability to urinate, Inability to have a bowel movement, Using more than one pad per hour, Shortness of breath, Chest pain, Calf discomfort, Uncontrolled pain Suture Line Care: Avoid Pulling/Pushing Remove Dressing in (days):: 1 Cleanse incision/area with: Soap & Water Allergies/Adverse Reactions: Allergies No Known Allergies Allergy (Verified 03/23/19 05:48) Medications to take at Discharge Diclofenac [Voltaren] 50 mg PO TIDCM PRN #30 tab 03/23/19 Docusate Sodium [Colace] 100 mg PO BID PRN PRN #60 cap 03/23/19 Oxycodone [Oxyir] 1 tab PO Q6H PRN PRN #20 tablet 03/23/19 The following prescriptions were given: Docusate Sodium [Colace] 100 mg PO BID PRN PRN #60 cap PRN Reason: Constipation Transmission Status: Pending to [facility] #30 Oxycodone [Oxyir] 1 tab PO Q6H PRN PRN #20 tablet PRN Reason: Pain Score 4-10/10 Transmission Status: Sent to [facility] #30 Diclofenac [Voltaren] 50 mg PO TIDCM PRN #30 tab PRN Reason: pain Transmission Status: Pending to [facility] #30 Orders to be completed after discharge: 12 Lead EKG [CVS] Time Frame: 03/16/19, Facility: [facility], Location: Cardiovascular Services CBC-Complete Blood Cnt No Diff Time Frame: 03/16/19, Facility: [facility], Location: Laboratory Primary Care Physician: Care Physician,No Primary [Primary Care Provider] - Test Results: Test results from this visit will be discussed in further detail at your follow- up appointment, if applicable. Please Follow Up With: Vero Fierro MD When: 2 weeks
--- NOTE | 2019-03-23 18:34 | PCM.DC.SUM ---
Discharge Date and Diagnosis Date of Admission: 03/23/19 Date of Discharge: 03/23/19 - Secondary Discharge Diagnosis Chronic Problems Chronic pelvic pain in female (Chronic) Hospital Course and Treatment Operations: hysterectomy Summary of Care Provided: The patient is a 33 year old F admitted for scheduled hysterectomy. She underwent a laparoscopic assisted vaginal hysterectomy, bilateral salpingectomy. She did well post-operatively and was discharged home on the evening of surgery. - Physical Exam Vitals/I&O's: Vital Signs Temp Pulse Resp BP Pulse Ox 98.1 F 75 16 131/86 H 97 03/23/19 16:15 03/23/19 16:15 03/23/19 16:15 03/23/19 16:15 03/23/19 16:15 Oxygen Flow Rate (L/min) 2 Oxygen Delivery Method Room Air Weight: 82.9 kg Body Mass Index (BMI) 32.3 Intake and Output for Last 24 Hours 03/21/19 03/22/19 03/23/19 23:59 23:59 23:59 Intake Total 1534.59 / 1534.59 Output Total 1870 / 1870 Balance -335.41 / -335.41 Laboratory Results 03/23/19 05:30: Urine Test Negative 03/23/19 05:55: Blood Type O POSITIVE, Antibody Screen NEGATIVE 03/23/19 05:55: WBC 7.8, RBC 4.97, Hgb 15.0, Hct 44.6, MCV 89.7, MCH 30.2, MCHC 33.6, RDW Std Deviation 40.2, RDW Coeff of Bean 12.2, Plt Count 209, MPV 10.5 03/23/19 05:55: PT 12.8, INR 1.0, APTT 32.2 Discharge Diet: No Restrictions Discharge Activity: Return to Normal Activity, May not drive while taking narcotic pain medications., May Shower, - - No tub bath for 2 weeks May resume sexual activity in: 6 weeks Call your doctor if your incision/area has: Continuous Slow Oozing, Sudden Increased Bleeding, Increased Pain/ Swelling, Increased Redness, Foul Smelling Discharge Call your doctor if you observe: Fever of 101 or Higher, Inability to urinate, Inability to have a bowel movement, Using more than one pad per hour, Shortness of breath, Chest pain, Calf discomfort, Uncontrolled pain Suture Line Care: Avoid Pulling/Pushing Remove Dressing in (days):: 1 Cleanse incision/area with: Soap & Water Home Medications: Medications to take at Discharge Diclofenac [Voltaren] 50 mg PO TIDCM PRN #30 tab 03/23/19 Docusate Sodium [Colace] 100 mg PO BID PRN PRN #60 cap 03/23/19 Oxycodone [Oxyir] 1 tab PO Q6H PRN PRN #20 tab 03/23/19 Following Prescrptions Were Given to Patient: Docusate Sodium [Colace] 100 mg PO BID PRN PRN #60 cap PRN Reason: Constipation Transmission Status: Received by [facility] #30 Oxycodone [Oxyir] 1 tab PO Q6H PRN PRN #20 tab PRN Reason: Pain Score 4-10/10 Transmission Status: Received by [facility] #30 Diclofenac [Voltaren] 50 mg PO TIDCM PRN #30 tab PRN Reason: pain Transmission Status: Received by [facility] #30 Primary Care Physician: Care Physician,No Primary [Primary Care Provider] - Please Follow Up With: Vero Fierro MD When: 2 weeks Medical Necessity - Tobacco Use Smoking Status: Current every day smoker Tobacco Use: Cigarettes Meaningful Use Info Meaningful Use Diagnoses (Choose all that apply): None applicable
--- NOTE | 2019-03-23 18:36 | PCM.PN.BLA ---
Progress Note Lilian reports she is sore, but pain manageable. OOB, ambulates without difficulty and voiding. Tolerates PO. No flatus yet, but reports gas movement. AVSS, GEN - NAD, AAO x3, abdomen is soft, nontender and nondistended. Incisional dressings with minimal saturation. No lower extremity edema or calf tenderness. Will d/c home. Reviewed incisional care, activity restrictions, follow up care. STROKE Vital Signs/Narrative: Vital Signs Temp Pulse Resp BP Pulse Ox 03/23/19 16:15 98.1 F 75 16 131/86 H 97
== END 2019-03-23 18:31 | disposition home or self-care (01) ==
LOC: MS3 10:39
PROVIDERS: Admitting Provider Obstetrics & Gynecology; Referring Provider Obstetrics & Gynecology; Visit Provider Obstetrics & Gynecology
PROC: 0UT9FZZ Resection of Uterus, Via Natural or Artificial Opening With Percutaneous Endoscopic Assistance (ICD-10-PCS; CPT 58552; principal; 2019-03-23 06:50)
DX: N92.1 Excessive and frequent menstruation with irregular cycle (principal); R10.2 Pelvic and perineal pain; G89.29 Other chronic pain; N80.3 Endometriosis of pelvic peritoneum; E28.2 Polycystic ovarian syndrome; K21.9 Gastro-esophageal reflux disease without esophagitis; R87.613 High grade squamous intraepithelial lesion on cytologic smear of cervix (HGSIL); F17.210 Nicotine dependence, cigarettes, uncomplicated
CPT/HCPCS: 00940; 58552; 81025; 85027; 85610; 85730; 86850; 86900; 86901; 88307; 96372; 96374; 96376; 99218; J7120; C1760; G0378; G0379; J2405

== ENCOUNTER 2019-07-03 18:07 | Emergency (ER) | payer OTHER, BC, SELFPAY ==
[2019-03-23 12:15] VITALS: BMI 32.3
[2019-07-03 18:08] VITALS: BP 165/117; PULSE 109; RESP 16; TEMP 36.6; O2SAT 98; BMI 32.8
--- NOTE | 2019-07-03 18:31 | ED.DEP ---
ED Disposition - Plan for ED Patient: Instructions: Dental Pain Prescriptions: Hydrocodone Bitart/Apap 5-325 [[place] 5MG-325MG] 1 tablet PO Q6H PRN PRN 3 Days #6 tablet PRN Reason: Pain Referrals: Care Physician,No Primary [Primary Care Provider] -
--- NOTE | 2019-07-03 18:41 | ED.DCSUM_ITS ---
- ER Visit Summary Date of Service: 07/03/19 Chief Complaint: Mouth pain History of Present Illness: The patient is a 34 F presenting with mouth pain. Patient states that she had her gums scraped by her dentist today for periodontal disease. She has been taking ibuprofen and Aleve at home. She is also on penicillin currently. She complains of diffuse pain in her right upper and lower gums. Denies fever or other complaints. Physical Examination: Vitals are stable. Patient is afebrile. Alert no acute distress. HEENT exam erythema of gums with no areas of fluctuance. No sublingual edema. Neck is supple. Lungs are clear and equal bilaterally. Heart is regular rate and rhythm. Extremities are unremarkable. Skin is warm and dry. No focal neurologic deficit. Remainder of exam is unremarkable. Emergency Department Course and Treatment: She was given short course of [place]. Advised to follow-up with dentist. Advised return to ED if worsening complaints. Disposition: Discharge home Impression: Gum pain status post dental procedure This note was generated with [employer] dictation software. It may contain incorrect words, spelling, and punctuation that were not noted in review of the chart prior to signing ED Disposition - Plan for ED Patient: Instructions: Dental Pain Prescriptions: Hydrocodone Bitart/Apap 5-325 [[place] 5MG-325MG] 1 tab PO Q6H PRN PRN 3 Days #6 tab PRN Reason: Pain Prescription Printed Referrals: Care Physician,No Primary [Primary Care Provider] -
== END 2019-07-03 18:49 | disposition home or self-care (01) ==
LOC: ED 18:33
PROVIDERS: Emergency Provider Emergency Medicine
DX: K08.89 Other specified disorders of teeth and supporting structures (principal); Z98.818 Other dental procedure status; Z72.0 Tobacco use
CPT/HCPCS: 99282

== ENCOUNTER 2019-08-01 04:45 | Emergency (ER) | payer OTHER, BC, SELFPAY ==
[2019-08-01 04:46] VITALS: BP 144/93; PULSE 94; RESP 16; TEMP 36.9; O2SAT 98; BMI 30.2
--- NOTE | 2019-08-01 05:02 | DCINST.ED_ITS ---
ED Disposition - Plan for ED Patient: Instructions: Dental Pain Prescriptions: Clindamycin [Cleocin] 300 mg PO 4X/DAY #80 capsule Hydrocodone Bitart/Apap 5-325 [[place] 5MG-325MG] 1 tablet PO Q6H PRN PRN 3 Days #10 tablet PRN Reason: Pain Referrals: Care Physician,No Primary [Primary Care Provider] -
--- NOTE | 2019-08-01 05:05 | ED.VISSUMM ---
- ER Visit Summary Date of Service: 08/01/19 Chief Complaint: Dental pain History of Present Illness: The patient is a 34 F presenting with dental pain. She states this started at 6 PM last night. She has been having pain in her left upper and lower molars. She states she needs a root canal and a dental extraction. She is awaiting her dental insurance to start back up on August 07. She just finished a course of clindamycin. She continues to complain of left facial swelling and dental pain. She tried ibuprofen, mouthwash, ice pack at home. She denies fever. Denies other complaints. Physical Examination: Vitals are stable. Patient is afebrile. Alert no acute distress. HEENT exam left upper molar tenderness to palpation with no surrounding fluctuance. No sublingual edema. Neck is supple. Lungs are clear and equal bilaterally. Heart is regular rate and rhythm. Extremities are unremarkable. Skin is warm and dry. No focal neurologic deficit. Remainder of exam is unremarkable. Emergency Department Course and Treatment: Patient was given prescription for clindamycin and a short course of [place]. Advised to continue ibuprofen. Advised to follow-up with dentist. Advised return to ED for worsening complaints. Disposition: Discharge home Impression: Odontalgia This note was generated with [employer] dictation software. It may contain incorrect words, spelling, and punctuation that were not noted in review of the chart prior to signing ED Disposition - Plan for ED Patient: Instructions: Dental Pain Prescriptions: Clindamycin [Cleocin] 300 mg PO 4X/DAY #80 cap Prescription Printed Hydrocodone Bitart/Apap 5-325 [[place] 5MG-325MG] 1 tab PO Q6H PRN PRN 3 Days #10 tab PRN Reason: Pain Prescription Printed Referrals: Care Physician,No Primary [Primary Care Provider] -
[2019-08-01] MEDS: HYDROcodone Bitartrate/Apap 5/325 Tablet PO (05:14)
[2019-08-01 05:16] VITALS: RESP 16
== END 2019-08-01 05:18 | disposition home or self-care (01) ==
LOC: ED 05:14
PROVIDERS: Emergency Provider Emergency Medicine
DX: K08.89 Other specified disorders of teeth and supporting structures (principal); Z72.0 Tobacco use
CPT/HCPCS: 99283

== ENCOUNTER 2019-12-07 11:06 | Emergency (ER) | payer OTHER, SELFPAY ==
[2019-12-07 11:08] VITALS: BP 136/75; PULSE 87; RESP 17; TEMP 36.5; O2SAT 98; BMI 27.0
--- NOTE | 2019-12-07 11:23 | ED.DCSUM_ITS ---
History of Present Illness Chief Complaint: Cough Narrative: Patient presenting for evaluation secondary to generalized illness. Patient states that over the course of the last 2 days she has been having chills and sweats that she attributes to fevers. This been associated with a nonproductive cough, body aches, nausea with no vomiting, and some increased frequency of stools. Patient denies that she is short of breath. Patient denies any history of lung disease or immunosuppression she is otherwise healthy. She denies any sick contacts. She really has not taken anything to help alleviate the symptoms. Review of systems otherwise negative. Past Medical History - Allergies and Home Meds Allergies/Adverse Reactions: Allergies No Known Allergies Allergy (Verified 12/07/19 11:07) Primary Care Physician: Care Physician,No Primary [Primary Care Provider] - Prior records reviewed: Yes Past Medical History: None Lives: With Family Smoking Status: Current every day smoker Alcohol: None Drugs: None Review of Systems All systems negative except as indicated General: Reports: Chills, Fever, Malaise Eyes: Denies: Visual changes - bilaterally, Diplopia ENT: Denies: Rhinorrhea, Sore throat Cardiovascular: Denies: Chest pain, Palpitations Respiratory: Reports: Cough Gastrointestinal: Reports: Nausea, Diarrhea. Denies: Vomiting Genitourinary: Denies: Dysuria, Hematuria, Frequency Musculoskeletal: Denies: Back pain, Extremity Pain Skin: Denies: Rash, Wounds Neurological: Denies: Headache, Weakness, Numbness Physical Exam Vital Signs/Narrative: Vital Signs Temp Pulse Resp BP Pulse Ox 12/07/19 11:08 97.7 F L 87 17 136/75 H 98 Inital Vital Signs reviewed: Yes General: Well nourished, Well developed, No Acute Distress Head: Normocephalic, Atraumatic Eyes: Perrl, EOMI ENT: Moist mucous membranes, No rhinorrhea Neck: Supple, Nontender Cardiovascular: Regular rate, Regular rhythm, No murmurs Respiratory: No distress, CTA bilaterally, Chest nontender Abdomen: Soft, Nontender, Nondistended, Normal bowel sounds Back: Nontender, Normal Inspection Extremities: Nontender, No edema Skin: Normal color, No rash Neurological: Alert, Oriented x3, Cranial nerves II-XII grossly intact, Normal Strength, Normal Sensation Psychological: Normal affect, Normal Mood Diagnostic/Tx/Re-eval - Medical Decision Making Patient presented secondary to a viral constellation of symptoms. She is well- appearing on physical exam, has a normal heart rate normal respiratory rate and is 98% on room air. Her history and physical is concerning for coronavirus infection. Testing will be sent. Patient was given Tylenol for symptom control. She was educated on signs and symptoms for which to return to the emergency department, was recommended to self quarantine. Patient was discharged in stable condition. ED Disposition - Plan for ED Patient: Disposition: Home or Assisted Living Diagnosis: Suspected COVID-19 virus infection Instructions: ED FUO Adult, ED Fever Control (Adult) Referrals: Care Physician,No Primary [Primary Care Provider] - Additional Instructions: Follow-up with your primary care physician
[2019-12-07] MEDS: Acetaminophen 500 MG Tablet 1000 MG PO (13:27)
[2019-12-07 13:33] VITALS: BP 114/75; PULSE 81; RESP 16; O2SAT 97
--- NOTE | 2019-12-07 13:34 | ED.RN ---
THIS NURSE REVIEWED D/C INSTRUCTIONS WITH PT. PT VERBALIZED UNDERSTANDING OF INSTRUCTIONS. PT DENIES FURTHER NEEDS OR QUESTIONS AT THIS TIME. PT GIVEN PAMPHLET TO RECEIVE COVID RESULTS. PT GIVEN WORK EXCUSE. PT AMBULATES FROM ROOM ON OWN WITHOUT ASSISTANCE FROM STAFF
== END 2019-12-07 13:35 | disposition home or self-care (01) ==
LOC: ED 13:00
PROVIDERS: Emergency Provider Emergency Medicine
DX: R05 Cough (principal); F17.200 Nicotine dependence, unspecified, uncomplicated
CPT/HCPCS: 87635; 99283; G2023; U0003

== ENCOUNTER 2020-10-03 19:24 | Observation (INO) | payer OTHER, SELFPAY ==
[2020-10-03 19:24] VITALS: BP 116/83; PULSE 86; RESP 18; TEMP 36.2; O2SAT 98; BMI 27.3
[2020-10-03 19:36] LABS: Mucous, Urine 0 SEEN /hpf (<or=2+); White Blood Cells 0 SEEN /hpf (0-5)
[2020-10-03 19:40] LABS: Color, Urine Yellow (Yellow); Glucose, Dipstick Normal (Normal); Ketone-Dipstick Negative (Negative); Leukocyte Esterase-Dipstick Negative /ul (Negative); Nitrite-Dipstick Negative (Negative); Occult Blood-Urine 50 /ul (Negative); Protein-Dipstick Negative (Negative); Urine Bilirubin Dipstick Negative (Negative); Urine Clarity Cloudy (Clear); Urine Urobilinogen Normal (Normal)
[2020-10-03 19:57] LABS: Red Blood Cells-Urine 5-10 SEEN /hpf (0-5); Squamous Epithelial Cells - UA 25-50 SEEN /hpf (5-10)
[2020-10-03 20:01] LABS: Bacteria 2+ /hpf (None Seen)
--- NOTE | 2020-10-03 20:20 | CT_ITS ---
HISTORY: Right sided pain EXAMINATION: CT Abdomen And Pelvis W/O Contrast Injection TECHNIQUE: Multiple axial images were obtained of the abdomen and pelvis without oral or IV contrast. A radiation dose optimization technique was used for this scan. IV Contrast dosage and agent: None. Oral contrast: None. COMPARISON: 05/15/17 FINDINGS: LOWER CHEST: Lung bases are clear. No cardiomegaly or pericardial effusion. LIVER: Homogeneous. No focal mass. GALLBLADDER AND BILIARY TREE: No calcified gallstones. No gallbladder distension or wall edema. No intra- or extrahepatic biliary ductal dilation. PANCREAS: No focal cystic or solid mass. SPLEEN: Normal size without focal cystic or solid mass. ADRENAL GLANDS: No nodules. KIDNEYS AND URETERS: Right-sided nonobstructing nephrolithiasis. No hydronephrosis bilaterally. PERITONEUM: No ascites or free air. BOWEL: Appendix contains retained radiodense material and images distended up to 10 mm with areas of wall thickening, no definite adjacent inflammatory stranding. No stomach or bowel distension. Scattered sigmoid diverticulosis without CT changes of acute diverticulitis LYMPH NODES: No enlarged mesenteric or retroperitoneal lymph nodes. VESSELS: Aorta is non-dilated. URINARY BLADDER: Unremarkable. REPRODUCTIVE ORGANS: No pelvic masses. Interval hysterectomy. Prominent right ovary remains. ABDOMINAL WALL: No discrete abdominal or pelvic wall hernia. BONES: No acute or aggressive abnormality. CT/Abdomen/Pelvis without Cont IMPRESSION: 10 mm appendix without evidence of wall thickening. No definite adjacent inflammatory stranding. Further evaluation limited by lack of IV contrast but highly suspicious for probable appendicitis. Recommend surgical consultation. Individualized dose optimization techniques were used for this CT. at 2148 Reported and signed by: Hector Da Silva MD Electronically Signed: Hector Da Silva MD at 21:46 EDT Tel , Service support ,
[2020-10-03 20:57] LABS: Absolute Lymphocyte Count 2.24 X10^3/uL (0.83-4.51); Absolute Neutrophil Count 6.8 X10^3/uL (2.0-7.7); Basophil# 0.03 X10^3/uL; Basophil% 0.3 % (0-1); Eosinophil# 0.16 X10^3/uL; Eosinophils% 1.6 % (0-5); Hematocrit 42.9 % (37-47); Hemoglobin 14.3 g/dL (12.0-15.0); Lymphocyte # 2.24 X10^3/ul (0.83-4.51); Lymphocyte % 22.8 % (19-41); Mean Corp Hgb Conc 33.3 g/dL (32-36); Mean Corpuscular Hgb 30.4 pg (27.0-32.0); Mean Corpuscular Volume 91.1 fL (81-99); Mean Platelet Vol. 9.8 fl (6.2-12.0); Monocyte# 0.53 X10^3/uL; Monocyte% 5.4 % (0-10); NRBC Flagged by Analyzer 0 % (0-5); Neutrophil # 6.82 X10^3/uL (2.7-7.7); Neutrophil % 69.6 % (47-70); Platelet Count 206 K/mm3 (150-450); RBC Distribution Width CV 12.5 % (11.6-14.6); RBC Distribution Width SD 41.8 fl (35.1-43.9); Red Blood Count 4.71 M/mm3 (4.2-5.4); White Blood Count 9.8 K/mm3 (4.4-11.0)
[2020-10-03] MEDS: 0.9% Normal Saline 1,000 ML 1000 ML IV (20:59)
[2020-10-03] MEDS: Morphine 4 MG/ML Syringe IV (20:59)
[2020-10-03] MEDS: Ondansetron 4 MG/2 ML Vial IV (20:59)
[2020-10-03 21:16] LABS: ALB/GLOB Ratio 1.1 RATIO (0.9-2.4); AST(SGOT) 7 U/L (15-37); Alanine Aminotransfer ALT/SGPT 14 U/L (13-56); Albumin, Serum 3.5 g/dL (3.2-5.0); Alkaline Phosphatase 61 U/L (45-117); Anion Gap 6 (5-15); BUN 10 mg/dL (7-18); BUN/Creat Ratio 15.8 RATIO (10-20); Calcium,Total 8.4 mg/dL (8.5-10.1); Chloride 109 mmol/L (98-107); Creatinine, Serum 0.63 mg/dL (0.55-1.02); EST Glomerular Filtration Rate 115 mL/min (>60); Est Glom Filt Rate - Afr Amer 139 mL/min (>60); Estimated Creatinine Clearance 105.07 ml/min; Globulin 3.3 g/dL (2.2-4.2); Glucose 90 mg/dL (74-106); Potassium 4.1 mmol/L (3.5-5.1); Protein, Total 6.8 g/dL (6.4-8.2); Sodium Level 141 mmol/L (136-145)
--- NOTE | 2020-10-03 22:47 | CT_ITS ---
STUDY: CT ABDOMEN AND PELVIS WITH CONTRAST REASON FOR EXAM: Female, 35 years old. RLQ pain -- IV PO Contrast RADIATION DOSAGE (If Supplied By Facility): CTDIvol = ( 13.26 ) mGy, DLP = ( 679.04 ) mGycm TECHNIQUE: Transaxial images were obtained from the dome of the diaphragm to the symphysis pubis without oral contrast. Oral and amp;amp; IV Gastrografin and amp;amp; 100mL Isovue-300 was administered. Sagittal and coronal images were reconstructed. Individualized dose optimization techniques were used for this CT. COMPARISON: 10/03/2020. FINDINGS: The visualized lung bases are unremarkable. The visualized portions of the heart are within normal limits. Normal liver. Normal gallbladder and extrahepatic biliary system. Normal spleen. Normal pancreas. Normal bilateral adrenal glands. Normal right kidney. Normal left kidney. The stomach is decompressed otherwise unremarkable. Mild fullness of the proximal small bowel loops, cannot exclude mild enteritis. Normal colon. The appendix is distended up to 8.8 mm with mild thickening of the lateral and surrounding inflammation consistent with early nonruptured acute appendicitis. Normal abdominal aorta. Normal inferior vena cava. Normal retroperitoneum. Normal urinary bladder. The uterus is nonvisualized suggestive of prior hysterectomy. There is a right ovarian cyst measuring 3.5 x 2.6 cm. There is thin rim with mild enhancement. This is nonspecific. No free fluid. Normal abdominal wall. Spondylosis at L5-S1 otherwise unremarkable lumbar spine. CT/Abdomen/Pelvis WITH Contrast IMPRESSION: Early nonruptured acute appendicitis, clinical correlation recommended. Cannot exclude mild proximal some enteritis versus localized ileus. Right ovarian cyst measuring 2.5 x 2.6 cm, stable in the interval. If indicated, this may be further characterized with ultrasound of the pelvis. Electronically Signed: Gita Murdock MD at 1:14 EDT , Service support ,
[2020-10-03 23:45] VITALS: BP 108/70
[2020-10-04] VITALS (11 sets, daily range): BP systolic 121–151; BP diastolic 73–95; PULSE 64–103; RESP 16–20; TEMP 36.5–37.2; O2SAT 96–99; BMI 28.5; BMI 27.2
--- NOTE | 2020-10-04 00:33 | ED.VIS.GI ---
HPI <Dr. Ephraim Cronin MD - Last Filed: 10/04/20 00:40> HPI - GI History of Present Illness Chief Complaint: Abd Pain Narrative Narrative: 35-year-old female reports that she has right lower quadrant abdominal pain that began 4 days ago. It is a continuous cramping, sharp pressure that is 10 on 10 at worst and 6 out of 10 currently. Is worsened by movement and walking. Is relieved by remaining still. Said nausea with no vomiting. No diarrhea. Last bowel was today. No hematochezia. She has had frequent urination, but no dysuria. PFSH <Dr. Ephraim Cronin MD - Last Filed: 10/04/20 00:40> PFSH Home Medications hydrocodone-acetaminophen 1 tab PO Q6H PRN 3 Days #10 tab 10/04/20 [Rx Last Taken Unknown] ondansetron 4 mg PO Q8H PRN #10 tab 10/04/20 [Rx Last Taken Unknown] Allergy/AdvReac Type Severity Reaction Status Date / Time No Known Allergies Allergy Verified 10/03/20 19:26 Surgical History History of partial hysterectomy Social History Smoking Status: Current every day smoker ROS <Dr. Ephraim Cronin MD - Last Filed: 10/04/20 00:40> ROS ED Constitutional Constitutional ED: Denies chills, fever(s) or sweats Eyes Eyes: Denies change in vision ENT ENT ED: Denies sore throat Cardiovascular Cardiovascular: Denies chest pain Respiratory/Chest Respiratory/Chest: Denies cough, dyspnea or dyspnea on exertion Gastrointestinal Gastrointestinal: Reports abdominal pain and nausea; Denies diarrhea, melena or vomiting Genitourinary Genitourinary ED: Denies dysuria or urinary frequency Musculoskeletal Musculoskeletal: Denies myalgias Integumentary Denies rash Neurologic Neurologic: Denies headache(s), paresthesias or weakness EXAM <Dr. Ephraim Cronin MD - Last Filed: 10/04/20 00:40> Physical Exam Const Vital Signs: 10/03/20 19:24 10/03/20 23:45 Temperature 97.2 F L Temperature Source Temporal Pulse Rate 86 Respiratory Rate 18 Blood Pressure 116/83 H 108/70 Blood Pressure Mean 94 82 Pulse Ox 98 Oxygen Delivery Method Room Air Positive well nourished and well developed General Appearance ED: well developed HEENT Reports normocephalic and head/scalp atraumatic Eyes PERRL Neck no lymphadenopathy, supple and no JVD General: Negative for tenderness Resp normal respiratory effort and clear to auscultation bilaterally Cardio regular rate, regular rhythm and no murmurs GI normal to inspection, nondistended, normoactive bowel sounds and non-distended GI Narrative: Moderate right lower quadrant tenderness to palpation no guarding, rebound, or peritoneal signs. Auscultation: normoactive bowel sounds Palpation: soft Back/Spine Back/Spine Narrative: Nontender. Extremity General Extremety ED: Negative for edema or tenderness General Extremity: Negative for edema Neuro oriented x3, CN's II-XII intact bilaterally and no sensory deficits noted Sensorium / Orientation: alert Motor Exam: strength 5/5 throughout Psych mental status grossly normal Skin no rashes or lesions noted <Dr. Triston Cardona MD - Last Filed: 10/04/20 01:51> Physical Exam Const Vital Signs: 10/03/20 19:24 10/03/20 23:45 Temperature 97.2 F L Temperature Source Temporal Pulse Rate 86 Respiratory Rate 18 Blood Pressure 116/83 H 108/70 Blood Pressure Mean 94 82 Pulse Ox 98 Oxygen Delivery Method Room Air MDM <Dr. Ephraim Cronin MD - Last Filed: 10/04/20 00:40> MDM Lab Data Labs: Laboratory Results - last 24 hr 10/03/20 10/03/20 10/03/20 19:30 20:50 20:50 WBC 9.8 RBC 4.71 Hgb 14.3 Hct 42.9 MCV 91.1 MCH 30.4 MCHC 33.3 RDW Std Deviation 41.8 RDW Coeff of Bean 12.5 Plt Count 206 MPV 9.8 Immature Gran % (Auto) 0.300 Neut % (Auto) 69.6 Lymph % (Auto) 22.8 [place] % (Auto) 5.4 Eos % (Auto) 1.6 Baso % (Auto) 0.3 Absolute Neuts (auto) 6.8 Absolute Lymphs (auto) 2.24 Nucleated RBC % 0 Sodium 141 Potassium 4.1 Chloride 109 H Carbon Dioxide 26.0 Anion Gap 6 BUN 10 Creatinine 0.63 Estim Creat Clear Calc 105.07 Est GFR (MDRD) Af Amer 139 Est GFR (MDRD) Non-Af 115 BUN/Creatinine Ratio 15.8 Glucose 90 Calcium 8.4 L Total Bilirubin 0.30 AST 7 L ALT 14 Alkaline Phosphatase 61 Total Protein 6.8 Albumin 3.5 Globulin 3.3 Albumin/Globulin Ratio 1.1 Urine Color Yellow Urine Clarity Cloudy Urine pH 7.0 Ur Specific [place] 1.010 Urine Protein Negative Urine Glucose (UA) Normal Urine Ketones Negative Urine Occult Blood 50 H Urine Nitrite Negative Urine Bilirubin Negative Urine Urobilinogen Normal Ur Leukocyte Esterase Negative Urine RBC 5-10 SEEN Urine WBC 0 SEEN Ur Squamous Epith Cells 25-50 SEEN Urine Bacteria 2+ Urine Mucus 0 SEEN Radiography Diagnostic Testing: Radiology Impression Abdomen/Pelvis CT 10/03/20 20:20 IMPRESSION: 10 mm appendix without evidence of wall thickening. No definite adjacent inflammatory stranding. Further evaluation limited by lack of IV contrast but highly suspicious for probable appendicitis. Recommend surgical consultation. Individualized dose optimization techniques were used for this CT. at 2148 Reported and signed by: Hector Da Silva MD Electronically Signed: Hector Da Silva MD at 21:46 EDT Tel , Service support , Abdomen/Pelvis CT 10/03/20 22:47 IMPRESSION: Early nonruptured acute appendicitis, clinical correlation recommended. Cannot exclude mild proximal some enteritis versus localized ileus. Right ovarian cyst measuring 2.5 x 2.6 cm, stable in the interval. If indicated, this may be further characterized with ultrasound of the pelvis. Electronically Signed: Gita Murdock MD at 1:14 EDT , Service support , Treatment and Re-Evaluation Comments:: Emergency department course: Patient had an IV placed. She was given Zofran morphine IV. She is resting more comfortably. Treatment plan: The CT was discussed with Dr. Martinez. He is reviewed this. He states that the appendix really does not look any different than on her prior CT. He asked for a repeat CT with p.o. and IV contrast. This has been ordered. The patient will be turned over the care of the oncoming Dr. Please see his addendum. <Dr. Triston Cardona MD - Last Filed: 10/04/20 01:51> [facility] Narrative Medical decision making narrative: This patient was signed out to me. CT does show a right ovarian cyst however there are also findings consistent with early appendicitis with a dilated appendix and periappendiceal inflammatory changes. Patient was given IV Zosyn. I spoke to general surgery on-call, Dr. Martinez who agrees to admit. Lab Data Labs: Laboratory Results - last 24 hr 10/03/20 10/03/20 10/03/20 19:30 20:50 20:50 WBC 9.8 RBC 4.71 Hgb 14.3 Hct 42.9 MCV 91.1 MCH 30.4 MCHC 33.3 RDW Std Deviation 41.8 RDW Coeff of [place] 12.5 Plt Count 206 MPV 9.8 Immature Gran % (Auto) 0.300 Neut % (Auto) 69.6 Lymph % (Auto) 22.8 [place] % (Auto) 5.4 Eos % (Auto) 1.6 Baso % (Auto) 0.3 Absolute Neuts (auto) 6.8 Absolute Lymphs (auto) 2.24 Nucleated RBC % 0 Sodium 141 Potassium 4.1 Chloride 109 H Carbon Dioxide 26.0 Anion Gap 6 BUN 10 Creatinine 0.63 Estim Creat Clear Calc 105.07 Est GFR (MDRD) Af Amer 139 Est GFR (MDRD) Non-Af 115 BUN/Creatinine Ratio 15.8 Glucose 90 Calcium 8.4 L Total Bilirubin 0.30 AST 7 L ALT 14 Alkaline Phosphatase 61 Total Protein 6.8 Albumin 3.5 Globulin 3.3 Albumin/Globulin Ratio 1.1 Urine Color Yellow Urine Clarity Cloudy Urine pH 7.0 Ur Specific [place] 1.010 Urine Protein Negative Urine Glucose (UA) Normal Urine Ketones Negative Urine Occult Blood 50 H Urine Nitrite Negative Urine Bilirubin Negative Urine Urobilinogen Normal Ur Leukocyte Esterase Negative Urine RBC 5-10 SEEN Urine WBC 0 SEEN Ur Squamous Epith Cells 25-50 SEEN Urine Bacteria 2+ Urine Mucus 0 SEEN Radiography Diagnostic Testing: Radiology Impression Abdomen/Pelvis CT 10/03/20 20:20 IMPRESSION: 10 mm appendix without evidence of wall thickening. No definite adjacent inflammatory stranding. Further evaluation limited by lack of IV contrast but highly suspicious for probable appendicitis. Recommend surgical consultation. Individualized dose optimization techniques were used for this CT. at 2148 Reported and signed by: Hector Da Silva MD Electronically Signed: Hector Da Silva MD at 21:46 EDT Tel , Service support , Abdomen/Pelvis CT 10/03/20 22:47 IMPRESSION: Early nonruptured acute appendicitis, clinical correlation recommended. Cannot exclude mild proximal some enteritis versus localized ileus. Right ovarian cyst measuring 2.5 x 2.6 cm, stable in the interval. If indicated, this may be further characterized with ultrasound of the pelvis. Electronically Signed: Gita Murdock MD at 1:14 EDT , Service support , Discharge Plan Triage Chief Complaint: Abd Pain ED Provider: Ephraim Cronin Dx/Rx/DC Orders Clinical Impression: Ovarian cyst, Acute appendicitis Prescriptions: New hydrocodone-acetaminophen 5-325 mg tablet 1 tab PO Q6H PRN (Reason: pain) 3 Days Qty: 10 RF: 0 ondansetron 4 mg tablet,disintegrating 4 mg PO Q8H PRN (Reason: nausea and vomiting) Qty: 10 RF: 0 Primary Care Provider: Care Physician,No Primary Referrals: Vero Guerrero MD [STAFF PHYSICIAN] - 3-5 Days Argenis Cox [NON-STAFF] - As Needed Care Physician,No Primary [Primary Care Provider] - Disposition Disposition: [facility]
[2020-10-04] MEDS: Morphine 4 MG/ML Syringe IV (01:49)
--- NOTE | 2020-10-04 02:27 | HP.PCM.SX_ITS ---
HPI - General General Date of Admission: 10/04/20 HPI Narrative LAWANDA JONAS, is a 35 F who presents to the emergency room with abdominal pain. The patient has been having abdominal pain for 4 days. The patient notes the abdominal pain started in her right lower quadrant and now is radiated to the upper abdomen. The patient does note nausea with no vomiting. No fevers or chills. She says the pain is constant at a 2 out of 10 and occasionally elevates to a 9 out of 10 in waves. PFSH Home Medications NK 10/04/20 [History Last Taken Unknown] Allergy/AdvReac Type Severity Reaction Status Date / Time No Known Allergies Allergy Verified 10/03/20 19:26 Surgical History History of partial hysterectomy Social History Smoking Status: Current every day smoker ROS Constitutional Constitutional: Denies anorexia or fever(s) Cardiovascular Cardiovascular: Denies chest pain Respiratory/Chest Respiratory/Chest: Denies cough, dyspnea on exertion or productive cough Gastrointestinal Gastrointestinal: Reports abdominal pain and nausea; Denies constipation, diarrhea, dysphagia, hematemesis, rectal bleeding or vomiting Psychiatric Psychiatric: Reports anxiety Vital Signs Vital Signs Vital Signs: 10/03/20 19:24 10/03/20 23:45 10/04/20 02:16 Temperature 97.2 F L 98.6 F Temperature Source Temporal Temporal Pulse Rate 86 74 Respiratory Rate 18 18 Blood Pressure 116/83 H 108/70 131/87 H Blood Pressure Mean 94 82 101 Pulse Ox 98 97 Oxygen Delivery Method Room Air Room Air Physical Exam Const oriented x3 and no apparent distress Resp normal respiratory effort Cardio regular rate and regular rhythm GI soft to palpation Inspection: Negative for abdominal distention Palpation: tender RLQ Extremity normal to inspection Lab / Micro Data Result Diagrams: 10/03/20 20:50 10/03/20 20:50 Labs: Laboratory Results - last 24 hr 10/03/20 10/03/20 10/03/20 19:30 20:50 20:50 WBC 9.8 RBC 4.71 Hgb 14.3 Hct 42.9 MCV 91.1 MCH 30.4 MCHC 33.3 RDW Std Deviation 41.8 RDW Coeff of Bean 12.5 Plt Count 206 MPV 9.8 Immature Gran % (Auto) 0.300 Neut % (Auto) 69.6 Lymph % (Auto) 22.8 [place] % (Auto) 5.4 Eos % (Auto) 1.6 Baso % (Auto) 0.3 Absolute Neuts (auto) 6.8 Absolute Lymphs (auto) 2.24 Nucleated RBC % 0 Sodium 141 Potassium 4.1 Chloride 109 H Carbon Dioxide 26.0 Anion Gap 6 BUN 10 Creatinine 0.63 Estim Creat Clear Calc 105.07 Est GFR (MDRD) Af Amer 139 Est GFR (MDRD) Non-Af 115 BUN/Creatinine Ratio 15.8 Glucose 90 Calcium 8.4 L Total Bilirubin 0.30 AST 7 L ALT 14 Alkaline Phosphatase 61 Total Protein 6.8 Albumin 3.5 Globulin 3.3 Albumin/Globulin Ratio 1.1 Urine Color Yellow Urine Clarity Cloudy Urine pH 7.0 Ur Specific [place] 1.010 Urine Protein Negative Urine Glucose (UA) Normal Urine Ketones Negative Urine Occult Blood 50 H Urine Nitrite Negative Urine Bilirubin Negative Urine Urobilinogen Normal Ur Leukocyte Esterase Negative Urine RBC 5-10 SEEN Urine WBC 0 SEEN Ur Squamous Epith Cells 25-50 SEEN Urine Bacteria 2+ Urine Mucus 0 SEEN Radiology Impression Abdomen/Pelvis CT 10/03/20 20:20 IMPRESSION: 10 mm appendix without evidence of wall thickening. No definite adjacent inflammatory stranding. Further evaluation limited by lack of IV contrast but highly suspicious for probable appendicitis. Recommend surgical consultation. Individualized dose optimization techniques were used for this CT. at 2148 Reported and signed by: Hector Da Silva MD Electronically Signed: Hector Da Silva MD at 21:46 EDT Tel , Service support , Abdomen/Pelvis CT 10/03/20 22:47 IMPRESSION: Early nonruptured acute appendicitis, clinical correlation recommended. Cannot exclude mild proximal some enteritis versus localized ileus. Right ovarian cyst measuring 2.5 x 2.6 cm, stable in the interval. If indicated, this may be further characterized with ultrasound of the pelvis. Electronically Signed: Gita Murdock MD at 1:14 EDT , Service support , Assessment & Plan Assessment/Plan (1) Acute appendicitis: QUALIFIERS: Acute appendicitis type: unspecified acute appe ndicitis type Qualified Code(s): K35.80 - Unspecified acute appendicitis (2) Ovarian cyst: QUALIFIERS: Laterality: right Qualified Code(s): N83.201 - Unspecified ovarian cyst, right side PLAN: The patient presents with right lower quadrant pain of 4 days duration. The patient has CT scan without contrast that showed possible thickening of the appendix. The CT was repeated with oral IV contrast which showed some possible inflammatory changes around the appendix but also a large 3.5 cm right ovarian cyst with rim enhancement. The patient has normal white count with no left shift. I am unsure if the patient really has acute appendicitis due to the long duration of her illness with a normal white count. I believe that the right ovarian cyst may be the cause of the pain but I would recommend exploratory laparoscopy with appendectomy. The patient has had hysterectomy in the past with bilateral oophorectomy. I have discussed this with the covering physician who is covering for Dr. Toshia Pinto. He will be present during the laparoscopic appendectomy later this morning and will evaluate the right ovary. I discussed this with the patient as well. I discussed that there was possibility of right oophorectomy versus cyst rupture or cystectomy. I also discussed laparoscopic appendectomy in detail with the patient. I discussed the risks of this procedure including not limited to bleeding, infection, injury to surrounding organs such as the bowel, bladder, ureter. The patient understands the risks and is willing proceed. Eamon Martinez MD Pager: [facility] [address] [place] [address], [address] [place] [address] Office:
[2020-10-04] MEDS: Morphine 2 MG/ML Syringe IV (03:49)
[2020-10-04] MEDS: 0.9% Normal Saline 1,000 ML 100 ML IV (03:50)
--- NOTE | 2020-10-04 04:55 | APP_PTH ---
PATIENT: LAWANDA GARCIA LOC: MS3 U#:[id number] AGE/SX: 35/F ROOM: [facility] [place] RE10/04/[address]: Dr. Eamon Martinez MD : 1985 BED: 1 DIS: 10/04/2020 SPEC #: [id number] RECD: 10/04/20 08:39 STATUS: SAQIB [id number] #: [id number] PRIYA: 10/04/20 04:[address]: Eamon Martinez DEPT: SURGICAL PATHOLOGY RECD BY: Fadumo Brown ENTERED: 10/04/20 09:54 SP TYPE: APPENDIX OTHR DR: No Primary Care Phys Tissues: A - Appendix, NOS B - Ovary, NOS Procedures: Surgery Specimen Level III Surgery Specimen Level IV HEADER OPERATION: Laparoscopic appendectomy, laparoscopic oophorectomy PRE-OP DIAGNOSIS: Acute appendicitis; ovarian cyst TISSUE SUBMITTED: A ? Appendix, B ? Right ovary MICROSCOPIC DIAGNOSIS A. Appendix, appendectomy: Appendix, no pathologic diagnosis. See comment. B. Right ovary, oophorectomy: Ruptured hemorrhagic corpus luteal cyst (4 cm in greatest dimension). Physiologic follicular cysts. SJ:rg 10/07/2020 COMMENT A. The entire appendix is examined. No evidence of acute inflammation in the lumen, appendicular wall or periappendiceal adipose tissue. MICROSCOPIC DESCRIPTION Slides are reviewed. GROSS DESCRIPTION A - Received in fixative is one container labeled with the patient's name and designated appendix. The specimen consists of an L-shaped appendix measuring 6 cm in length and 1 cm in diameter. The attached periappendiceal adipose tissue measures up to 1.5 cm in width. The serosa is congested. No obvious perforation is identified. Sections reveal the lumen contains fecal material. No fecalith is identified. The entire appendix is submitted in three cassettes. Cassette 1 contains the tip and proximal portion of the appendix. B - Received in fixative is one container labeled with the patient's name and designated right ovary. The specimen consists of previously, partially ruptured ovary measuring 5 x 4 x 2 cm. A ruptured hemorrhagic corpus luteal cyst filled with blood clot is noted measuring 4 x 3.5 x 1.5 cm. Two smaller cysts filled with clear fluid are also noted measuring 0.7 cm in greatest dimension. Special Library Librarian sections are submitted in four cassettes as follows: 1 & 2 ? hemorrhagic corpus luteal cyst, 3 & 4 ? insurance claims representative sections from the other area. / SJ:rg 10/04/20 TC:5 CPT: 63745, 26975
[2020-10-04] MEDS: Lactated Ringers 1,000 ML 100 ML IV (05:00)
[2020-10-04] MEDS: Bupiv/Epi 0.25% 30 ML Vial (06:10)
--- NOTE | 2020-10-04 06:25 | OP.PCM_ITS ---
Problems Associated Problem List Diagnoses (1) Hemorrhagic cyst of right ovary: (2) Acute appendicitis: Report of Operation Date of Procedure: 10/04/20 Pre-Operative Diagnosis: Acute appendicitis Post-Operative Diagnosis: Hemorrhagic right ovarian cyst Surgery/Procedure Performed:: Laparoscopic appendectomy Laparoscopic right oophorectomy furniture repairer: Norman Milner Specimen's removed: 1. Appendix 2. Right ovary Description of Procedure: The patient was brought into the operating room and general anesthesia was induced. The left arm was tucked and the abdomen was prepped and draped in usual sterile fashion. A small midline incision was made superior to the umbilicus and deepened to the level of the fascia. The fascia was elevated and incised. The peritoneum was also elevated and incised. A finger sweep was performed and a balloon trocar was placed into the abdomen and inflated. The abdomen was insufflated to 15 mmHg and the camera was inserted and the abdomen was inspected for any injuries upon entering the abdomen. There were none. The patient was placed in Trendelenburg position and a 5 mm ports placed in the left lower quadrant and suprapubic areas under direct visualization. Next using atraumatic bowel graspers the appendix was identified. The appendix did not appear inflamed. The pelvis was inspected and there was serosanguineous fluid in the pelvis as well as a large right hemorrhagic ovarian cyst. The appendix was grasped and elevated and Enseal was used to take down the mesoappendix. A stapler was used to come across the base of the appendix. The appendix was then placed in Endo Catch bag and removed through the umbilical incision. Next Dr. Noramn Milner from gynecology was called into the room to address the right ovary. He agreed that it was a right hemorrhagic cyst and recommended oophorectomy. He did discussed this with the patient prior to surgery. He performed a right oophorectomy please see his operative report for his part of the procedure. The staple line was inspected and found to be hemostatic and intact. The 2 5 mm ports are removed under direct visualization. The balloon trocar was deflated and removed and all the air was removed from the abdomen. The umbilical incision fascia was closed with an 0 Vicryl [id number] suture. The incisions were then irrigated with saline and dried. Local anesthetic was injected into the incision sites. The skin incisions were then closed with interrupted 4-0 Monocryl suture and Steri-Strips. Bandages were applied and the patient was awoken and taken to PACU in stable condition. Patient tolerated the procedure well. Admit VTE Documentation VTE Mechan Device Prophylaxis: SCD's
--- NOTE | 2020-10-04 07:03 | PCM.OPRPT ---
Report of Operation Date of Procedure: 10/04/20 Pre-Operative Diagnosis: Right lower quadrant pain Post-Operative Diagnosis: Right lower quadrant pain, hemorrhagic cyst of the right ovary Surgery/Procedure Performed:: Laparoscopic appendectomy, right oophorectomy Description of Surgical Findings:: This operative note only reflects my portion of the procedure. Laparoscopic appendectomy was performed by Eamon Martinez, please refer to his operative note. Surgeon for my portion of the procedure: Norman Milner MD Dry Color Mixer: Eamon Martinez Anesthesia: General EBL: Minimal IV fluids: 1000 cc Urine output: Not measured Complications: None Specimen: Right ovary Findings: Moderate amount of blood in the pelvis. Right hemorrhagic cyst engulfing the ovary 4 to 5 cm, cyst draining actively. Overall cysts consists of majority of the ovary with only a small amount of normal ovary making cystectomy not possible. Consent: Patient with right lower quadrant pain called by Dr. Martinez with possible ovarian etiology. Educated the patient on ovarian cysts and discussed possible cystectomy possible oophorectomy. Patient state understanding and wished to proceed. Patient understands the risk of the procedure include but are not limited to visceral or vascular injury, prolonged hospitalization, blood loss and need for transfusion, reoperation. Patient stated understanding wished to proceed. All questions were answered. Procedure: Patient is brought back to the OR where general anesthesia found to be adequate. Laparoscopic appendectomy was performed by Dr. Martinez. Using the same trochars and instruments right oophorectomy performed. With above findings. Right ureter was identified and found to be out of the operative field. Using harmonic device IP ligament was cut and cauterized. Good hemostasis was noted. Endo Catch bag was used to remove ovary. Fascia and skin were closed by Dr. Martinez. Patient will follow up in the office for AIRPLANE WOODWORKER portion of the procedure.
--- NOTE | 2020-10-04 09:26 | PCM.DC.SUM ---
Providers Date of Admission: 10/04/20 Primary Care Physician: Елена Primary Care Phys Reason For Visit: APPENDICITIS Diagnosis Discharge Diagnosis (1) Hemorrhagic cyst of right ovary: Status: Acute Code(s): N83.201 - Unspecified ovarian cyst, right side (2) Acute appendicitis: Status: Acute Code(s): K35.80 - Unspecified acute appendicitis Qualifiers: Acute appendicitis type: unspecified acute appendicitis type Qualified Code(s): K35.80 - Unspecified acute appendicitis Medications at Discharge Home Medications NK 10/04/20 acetaminophen [Tylenol] 650 mg PO Q4H PRN PRN #0 tab 10/04/20 oxycodone 5 - 10 mg PO Q4H PRN PRN 5 Days #30 tab 10/04/20 Hospital Course Operations appendectomy Summary of Care Provided Hospital Course: The patient presents the emergency room with right lower quadrant pain of 4-day duration. The patient had a CT scan which showed a right ovarian cyst as well as possible appendicitis. She was taken to surgery for laparoscopic appendectomy and was found to have a hemorrhagic cyst of the right ovary. Gynecology performed a right oophorectomy at the time of surgery. Patient was admitted back to the floor when she was tolerating a diet discharge home. ABG / Lab / Microbiology Data Result Diagrams: 10/03/20 20:50 10/03/20 20:50 Laboratory: Laboratory Results - last 24 hr 10/03/20 10/03/20 10/03/20 19:30 20:50 20:50 WBC 9.8 RBC 4.71 Hgb 14.3 Hct 42.9 MCV 91.1 MCH 30.4 MCHC 33.3 RDW Std Deviation 41.8 RDW Coeff of [place] 12.5 Plt Count 206 MPV 9.8 Immature Gran % (Auto) 0.300 Neut % (Auto) 69.6 Lymph % (Auto) 22.8 [place] % (Auto) 5.4 Eos % (Auto) 1.6 Baso % (Auto) 0.3 Absolute Neuts (auto) 6.8 Absolute Lymphs (auto) 2.24 Nucleated RBC % 0 Sodium 141 Potassium 4.1 Chloride 109 H Carbon Dioxide 26.0 Anion Gap 6 BUN 10 Creatinine 0.63 Estim Creat Clear Calc 105.07 Est GFR (MDRD) Af Amer 139 Est GFR (MDRD) Non-Af 115 BUN/Creatinine Ratio 15.8 Glucose 90 Calcium 8.4 L Total Bilirubin 0.30 AST 7 L ALT 14 Alkaline Phosphatase 61 Total Protein 6.8 Albumin 3.5 Globulin 3.3 Albumin/Globulin Ratio 1.1 Urine Color Yellow Urine Clarity Cloudy Urine pH 7.0 Ur Specific [place] 1.010 Urine Protein Negative Urine Glucose (UA) Normal Urine Ketones Negative Urine Occult Blood 50 H Urine Nitrite Negative Urine Bilirubin Negative Urine Urobilinogen Normal Ur Leukocyte Esterase Negative Urine RBC 5-10 SEEN Urine WBC 0 SEEN Ur Squamous Epith Cells 25-50 SEEN Urine Bacteria 2+ Urine Mucus 0 SEEN Microbiology: Microbiology 10/04/20 03:30 SARS-CoV-2 Antigen (Rapid) - Final Mucosa - Nose Microbiology 10/04/20 03:30 Mucosa - Nose SARS-CoV-2 Antigen (Rapid) - Final Radiography Diagnostic Testing: Radiology Impression Abdomen/Pelvis CT 10/03/20 20:20 IMPRESSION: 10 mm appendix without evidence of wall thickening. No definite adjacent inflammatory stranding. Further evaluation limited by lack of IV contrast but highly suspicious for probable appendicitis. Recommend surgical consultation. Individualized dose optimization techniques were used for this CT. at 2148 Reported and signed by: Hector Da Silva MD Electronically Signed: Hector Da Silva MD at 21:46 EDT Tel , Service support , Abdomen/Pelvis CT 10/03/20 22:47 IMPRESSION: Early nonruptured acute appendicitis, clinical correlation recommended. Cannot exclude mild proximal some enteritis versus localized ileus. Right ovarian cyst measuring 2.5 x 2.6 cm, stable in the interval. If indicated, this may be further characterized with ultrasound of the pelvis. Electronically Signed: Gita Murdock MD at 1:14 EDT , Service support , D/C Instructions Discharge Diet: Light diet - advance as tolerated Discharge Activity: May Not Drive (for 2-3 days or while taking narcotic pain medications.) May shower in (days): 1 Lifting Restricted to (Lbs): 20 (for 2 weeks) Call your doctor if your incision/area has: Continuous Slow Oozing, Sudden Increased Bleeding, Increased Pain/ Swelling, Increased Redness and Foul Smelling Discharge Call your doctor if you observe: Fever of 101 or Higher Suture Line Care: Avoid Pulling/Pushing and Avoid Pinching/Bending Additional Dressing/Incision Instructions: Keep dressing clean and dry. Change or remove dressing in 2 days. Leave steri strips for 1 week. May protect with a gauze bandaid. Please Follow Up With: Eamon Martinez MD When: Please call to schedule 2 week follow up appointment. [phone] Meaningful Use Info Meaningful Use Diagnoses (Choose all that apply): None applicable Discharge Plan Admission Admit Date/Time: 10/04/20 02:20 Primary Reason for Your Visit: Right lower quadrant pain Attending Provider: Eamon Martinez Primary Care Provider: Care Physician,No Primary Discharge Orders/Prescriptions Prescriptions: New acetaminophen [Tylenol] 325 mg Tablet 650 mg PO Q4H PRN PRN (Reason: Pain 1-10 Or Fever) Qty: 0 RF: 0 oxycodone 5 mg Tablet 5 - 10 mg PO Q4H PRN PRN (Reason: Pain Score 4-10) 5 Days Qty: 30 RF: 0 No Action NK RF: 0 Referrals / Follow Up: Eamon Martinez MD [STAFF PHYSICIAN] - (Please call to schedule 2 week follow up appointment. [phone]) Vero Guerrero MD [STAFF PHYSICIAN] - 3-5 Days Argenis Cox [NON-STAFF] - As Needed Care Physician,No Primary [Primary Care Provider] - Disposition Disposition (needs filled in before D/C Order can be placed): Home, self care
[2020-10-04] MEDS: oxyCODONE 5 MG Tablet PO ×2 (11:40→12:36)
== END 2020-10-04 16:20 | disposition home or self-care (01) ==
LOC: ED 10-04 01:51 → MS3 10-04 02:27
PROVIDERS: Admitting Provider Surgery; Emergency Provider Emergency Medicine; Visit Provider Surgery
PROC: 0DTJ4ZZ Resection of Appendix, Percutaneous Endoscopic Approach (ICD-10-PCS; CPT 44970; principal; 2020-10-04 04:55)
DX: K35.80 Unspecified acute appendicitis (principal); N83.11 Corpus luteum cyst of right ovary; F17.200 Nicotine dependence, unspecified, uncomplicated
CPT/HCPCS: 44970; 58661; 74176; 74177; 80053; 81001; 85025; 87426; 88304; 88305; 96361; 96365; 96375; 96376; 99218; 99285; J7030; J7050; J7120; Q9967; A4216; C1760; G0378; J2405

== ENCOUNTER 2023-03-31 13:44 | Emergency (ER) | payer SELFPAY ==
[2023-03-31 13:45] VITALS: BP 182/112; PULSE 90; RESP 18; TEMP 36.1; O2SAT 98; BMI 29.4
--- NOTE | 2023-03-31 13:56 | EX.ED.DYSGE1 ---
HPI <GABRIELA Leon - Last Filed: 03/31/23 16:16> History of Present Illness Chief Complaint: Headache Narrative Narrative: 37-year-old female developed a slight right frontal headache this morning that worsened about noon. She has light sensitivity and nausea but no vomiting. It feels similar to her prior migraines. She has no visual changes or focal motor or sensory changes. She reports having normal CT brain scan several years ago. Years ago she was prescribed Zomig which helped. PFSH <GABRIELA Leon - Last Filed: 03/31/23 16:16> PFSH Medical History Cancer Smoker Home Medications NK 10/04/20 [History Last Taken Unknown] acetaminophen 325 mg tablet (Tylenol) 650 mg (2 x 325 mg) PO Q4H PRN PRN Pain 1-10 Or Fever #0 tabs 10/04/20 [Rx Last Taken Unknown] oxycodone 5 mg tablet 5 - 10 mg (1 - 2 x 5 mg) PO Q4H PRN PRN Pain Score 4-10 5 days #30 tabs 10/04/20 [Rx Last Taken Unknown] Allergy/AdvReac Type Severity Reaction Status Date / Time No Known Allergies Allergy Verified 03/31/23 13:46 Surgical History History of partial hysterectomy Social History Smoking Status: Current every day smoker tobacco type: cigarettes ROS <GABRIELA Leon - Last Filed: 03/31/23 16:16> ROS ED ROS Narrative Constitutional: Negative for fever, chills, malaise. Eyes: Negative for visual change. GI: Positive for nausea, negative for vomiting. Neuro: Positive for headache, negative for motor/sensory dysfunction. EXAM <GABRIELA Leon - Last Filed: 03/31/23 16:16> Physical Exam Narrative Exam Narrative: CONST: Patient sitting in no acute distress in dark room. EYES: Normal inspection. PERRLA, EOMI. ENT: Normal inspection, moist mucous membranes. NECK: Normal inspection. No meningismus. RESP: No respiratory distress, CTAB. CVS: Regular rate and rhythm, no murmur, no gallop. SKIN: Color normal, no rash, warm, dry, intact. EXTREMITIES: Normal appearance, no pedal edema. NEURO: Oriented x4. 5/5 upper and lower extremity strength, normal finger-nose bilaterally, normal gait. PSYCH: Normal affect. Const Vital Signs: 03/31/23 13:45 03/31/23 14:17 Temperature 97 F L Temperature Source Temporal Pulse Rate 90 81 Respiratory Rate 18 Blood Pressure 182/112 H 148/94 H Blood Pressure Mean 135 112 Pulse Ox 98 Oxygen Delivery Method Room Air <Dr. Tyrel Mares MD - Last Filed: 04/01/23 07:49> Physical Exam Const Vital Signs: 03/31/23 13:45 03/31/23 14:17 Temperature 97 F L Temperature Source Temporal Pulse Rate 90 81 Respiratory Rate 18 Blood Pressure 182/112 H 148/94 H Blood Pressure Mean 135 112 Pulse Ox 98 Oxygen Delivery Method Room Air MDM <GABRIELA Leon - Last Filed: 03/31/23 16:16> [facility] Narrative Medical decision making narrative: Patient has gradual onset right frontal headache that feels like her typical migraine with light sensitivity and nausea. She appears well and nontoxic. Initially BP was 182/112 with otherwise normal vital signs. She is neurologically intact. She was treated with IV fluids, Toradol, Compazine, Benadryl, and sumatriptan and feels significantly improved. BP is 148/94. She is comfortable and was discharged home in stable condition. Test considered but not ordered: CT brain not indicated since she is neurologically intact, headache similar to previous, normal CT brain in 2016 <Dr. Tyrel Mares MD - Last Filed: 04/01/23 07:49> [facility] Treatment and Re-Evaluation :: I have personally performed a face to face assessment of the patient and have reviewed the ETIENNE Note. I performed a substantive portion of the visit including all aspects of the following. My gonzalez findings include: History: Presents with what she describes as a migraine headache. She states that Wednesday night she ate some food that was bad. This caused some nausea and vomiting into Wednesday morning. She is not vomiting anymore. She was getting better from that. When she had that she had no headache at all. When she woke up this morning she had a mild headache. She gets headaches and not uncommonly but migraines just intermittently. She states the headache was mild this morning. About an hour ago it started to turn into a migraine. It is unilateral on the right side. There is photophobia. No numbness tingling weakness or visual change. This is typical for her headaches. This is not the worst she has had and there is certainly not thunderclap onset. No fevers in any times. She states the last day she really has not ate or drank a lot because of the prior complaint not due to the headache. Exam: She is awake alert. She does have photophobia on exam. But no rash. Negative Salvador sign. No visual change other than the photophobia. No meningismus. Abdomen is not tender. No rashes. Medical Decision Making: Patient will be given meds and IV fluids and recheck. Discharge Plan Triage Chief Complaint: Headache ED Midlevel Provider: Keli Randall ED Provider: Tyrel Mares Dx/Rx/DC Orders Clinical Impression: Migraine, Photophobia Instructions: ED, Migraine (Classical) Prescriptions: No Action NK acetaminophen [Tylenol] 325 mg Tablet 650 mg PO Q4H PRN PRN (Reason: Pain 1-10 Or Fever) Qty: 0 0RF oxycodone 5 mg Tablet 5 - 10 mg PO Q4H PRN PRN (Reason: Pain Score 4-10) 5 Days Qty: 30 0RF Stand Alone Forms: ED Work / School Excuse Primary Care Provider: Dashawn Waite Referrals: Dashawn Waite DO [Primary Care Provider] - Activity Restrictions/Additional Instructions: Please follow-up with your primary care doctor to discuss migraine medication Disposition Disposition: Home, Self Care Discharge Date/Time: 03/31/23 15:10
[2023-03-31] MEDS: proCHLORPERazine 10 MG/2 ML Vial 5 MG IV (14:13)
[2023-03-31] MEDS: DiphenhydrAMINE 50 MG/ML Syringe 25 MG IV (14:13)
[2023-03-31] MEDS: 0.9% Normal Saline (1000mL) 1,000 ML 999 ML IV (14:13)
[2023-03-31 14:17] VITALS: BP 148/94; PULSE 81
[2023-03-31] MEDS: SUMAtriptan 6 MG/0.5 ML Vial SC (14:20)
[2023-03-31] MEDS: Ketorolac 15 MG/ML Vial IV (14:24)
== END 2023-03-31 15:10 | disposition home or self-care (01) ==
LOC: ED 14:23
PROVIDERS: Emergency Provider Emergency Medicine; PCP Student in an Organized Health Care Education/Training Program; Visit Provider Emergency Medicine
DX: G43.909 Migraine, unspecified, not intractable, without status migrainosus (principal); F17.210 Nicotine dependence, cigarettes, uncomplicated; R11.0 Nausea
CPT/HCPCS: 96361; 96372; 96374; 96375; 99283; J7030; J3030

== ENCOUNTER 2023-10-21 13:47 | Emergency (ER) | payer SELFPAY ==
[2023-10-21 13:49] VITALS: BP 157/96; PULSE 102; RESP 16; TEMP 36.8; O2SAT 100; BMI 28.0
--- NOTE | 2023-10-21 14:11 | EDS_ITS ---
HPI <DEVANTE Mccabe - Last Filed: 10/21/23 14:31> History of Present Illness Chief Complaint: Abscess Narrative Narrative: Patient is a 38-year-old female with no significant medical history presents to the emergency department with a cyst/abscess to the skin just above her vagina. Patient states that she has been having this for multiple months. Patient states that it usually gets bigger and smaller. However today it is much more painful and red and she is here for evaluation. Patient denies any fever or chills, patient denies any nausea or vomiting. Patient said the pain is getting more significant. PFSH <DEVANTE Mccabe - Last Filed: 10/21/23 14:31> [facility] Medical History Cancer Smoker Home Medications ?Medication ?Instructions ?Recorded ?Last Taken ?Type cephalexin 500 mg capsule 500 mg PO Q6 #40 CAPSULES 10/21/23 Unknown Rx sulfamethoxazole 800 1 tab PO BID 10 days #20 tabs 10/21/23 Unknown Rx mg-trimethoprim 160 mg tablet (Bactrim DS) venlafaxine 150 mg 150 mg PO DAILY 10/21/23 Unknown History capsule,extended release 24 hr Allergy/AdvReac Type Severity Reaction Status Date / Time No Known Allergies Allergy Verified 10/21/23 13:50 Surgical History History of partial hysterectomy Social History Smoking Status: Current every day smoker tobacco type: cigarettes ROS <DEVANTE Mccabe - Last Filed: 10/21/23 14:31> ROS ED ROS Narrative Constitutional: Negative for fever, chills, weight loss, weakness Eyes: Negative for vision loss, vision change, double vision ENT: Negative for any sore throat, ear pain, congestion Cardiovascular: Negative for any chest pain, tightness, palpitations Respiratory: Negative for any cough, sputum production, hemoptysis, dyspnea, dyspnea on exertion, orthopnea Gastrointestinal: Negative for any abdominal pain, nausea, vomiting, diarrhea, constipation, blood in stool, blood in vomit : Negative for any urinary frequency, dysuria, retention, blood in urine Muscle skeletal: Negative for any neck pain, back pain Neurological: Negative for any headache, syncope, dizziness Skin: Negative for any rashes, itching, abrasions, lacerations. Positive absc ess to the suprapubic area Psychiatric: Negative for any depression, anxiety, stress, suicidal ideation, homicidal ideation Hematologic: Negative for any excessive bruising, easy bleeding EXAM <DEVANTE Mccabe - Last Filed: 10/21/23 14:31> Physical Exam Narrative Exam Narrative: Vital signs reviewed. HEET: Head normocephalic atraumatic, TMs clear bilaterally. Posterior pharynx is clear, moist mucous membranes. Nares clear bilaterally. Neck: Supple with no lymphadenopathy or tenderness. No signs of meningismus. Cardiac: Regular rate and rhythm no murmurs gallops or rubs, equal peripheral pulses bilaterally. Respiratory: Lungs clear to auscultation bilaterally. No chest tenderness. Abdomen: Soft, nontender, nondistended. No abdominal bruit or pulsatile masses. No hepatosplenomegaly Extremities: No peripheral edema, no signs of gross trauma or deformity. Active full range of motion of all extremities. Neuro: Cranial nerves II through XII intact, no focal neurological deficits. Skin: Clean dry and intact with no rash, purpura, petechiae, vesicles or pustules. Patient has erythema, abscess formation to the superior vagina. This is not internal. This is external. There is some surrounding cellulitis Backs/flank: No CVA tenderness, no midline spinal tenderness, no deformity. Psych: Normal mood and affect. No SI, HI or acute psychosis. Const Vital Signs: 10/21/23 13:49 Temperature 98.2 F Temperature Source Temporal Pulse Rate 102 H Respiratory Rate 16 Blood Pressure 157/96 H Blood Pressure Mean 116 Pulse Ox 100 Oxygen Delivery Method Room Air <Dr. Jeffrey Stearns DO - Last Filed: 10/21/23 14:50> Physical Exam Const Vital Signs: 10/21/23 13:49 Temperature 98.2 F Temperature Source Temporal Pulse Rate 102 H Respiratory Rate 16 Blood Pressure 157/96 H Blood Pressure Mean 116 Pulse Ox 100 Oxygen Delivery Method Room Air [facility] <DEVANTE Mccabe - Last Filed: 10/21/23 14:31> [facility] Treatment and Re-Evaluation :: Differential diagnosis includes however is not limited to: Abscess formation, folliculitis, All's gangrene, cellulitis Patient appears to be in no obvious respiratory distress, patient's vital signs are stable. Patient presents to the emergency department with abscess formation to the suprapubic area. There is a small area of redness, this could benefit from an I&D. Female nurse Yoselin was my php software engineer. I was able anesthetize the area with 1% lidocaine. I was able makes a small 0.5 cm incision, copious amounts of yellow- white foul-smelling liquid was expelled. Patient did have relief. At this time, patient be treated with Keflex, Bactrim. She instructed use warm compresses, she need to follow-up outpatient. Patient is happy the plan of care, she was given return precautions. All questions answered, patient stable for discharge. <Dr. Jeffrey Stearns, DO - Last Filed: 10/21/23 14:50> [facility] Treatment and Re-Evaluation :: Differential diagnosis includes however is not limited to: Abscess formation, folliculitis, All's gangrene, cellulitis Patient appears to be in no obvious respiratory distress, patient's vital signs are stable. Patient presents to the emergency department with abscess formation to the suprapubic area. There is a small area of redness, this could benefit from an I&D. Female nurse Yoselin was my php software engineer. I was able anesthetize the area with 1% lidocaine. I was able makes a small 0.5 cm incision, copious amounts of yellow- white foul-smelling liquid was expelled. Patient did have relief. At this time, patient be treated with Keflex, Bactrim. She instructed use warm compresses, she need to follow-up outpatient. Patient is happy the plan of care, she was given return precautions. All questions answered, patient stable for discharge. I have personally performed a face to face assessment of the patient and have reviewed the ETIENNE Note. I performed a substantive portion of the visit including all aspects of the following. My gonzalez findings include: History is 38-year-old female with had a waxing and waning area of tenderness in her mons pubis area. It is gotten more enlarged and tender now. Exam is findings consistent with a small cutaneous abscess of the mons pubis. No obvious All's or deep infection. Medical Decison Making nurse practitioner performed incision and drainage. Placed patient on antibiotics. She notes understanding of the possibility of reoccurrence as well as follow-up Discharge Plan Triage Chief Complaint: Abscess ED Midlevel Provider: Stef Mohan ED Provider: Jeffrey Stearns Dx/Rx/DC Orders Clinical Impression: Abscess of pubic region Instructions: ED Abscess Antibiotic Treatment Only, ED Abscess Incision And Drainage, Staph MRSA Prescriptions: New sulfamethoxazole-trimethoprim [Bactrim DS] 800-160 mg tablet 1 tab PO BID 10 Days Qty: 20 0RF cephalexin 500 mg capsule 500 mg PO Q6 Qty: 40 0RF No Action venlafaxine 150 mg capsule,extended release 24hr 150 mg PO DAILY Primary Care Provider: Dashawn Waite Referrals: Kelly Nielson MD [Non-Staff] - Dashawn aWite DO [Primary Care Provider] - Activity Restrictions/Additional Instructions: Keep the area clean and dry. Use antibiotics until finished. May use warm compresses. Return for any worsening symptoms. Print Language: Yakut Disposition Disposition: Home, Self Care Discharge Date/Time: 10/21/23 14:37
[2023-10-21] MEDS: Lidocaine 1% (20 ml mdv) 20 ML Vial INFILT (14:15)
[2023-10-21] MEDS: Cephalexin 250 MG Capsule 500 MG PO (14:33)
[2023-10-21] MEDS: Smz/Tmp Ds Tablet 1 TABLET PO (14:33)
== END 2023-10-21 14:37 | disposition home or self-care (01) ==
LOC: ED 14:34
PROVIDERS: Emergency Provider Emergency Medicine; PCP Student in an Organized Health Care Education/Training Program; Visit Provider Emergency Medicine
DX: L02.215 Cutaneous abscess of perineum (principal); F17.210 Nicotine dependence, cigarettes, uncomplicated
CPT/HCPCS: 10060; 99283

== ENCOUNTER 2025-03-16 16:05 | Emergency (ER) | payer MEDICAID, SELFPAY ==
[2025-03-16 16:06] VITALS: BP 165/97; PULSE 105; RESP 18; TEMP 36.9; O2SAT 98; BMI 29.6
--- NOTE | 2025-03-16 17:54 | US_ITS ---
PROCEDURE: US GALLBLADDER 03/16/2025 REASON FOR EXAM: PAIN TECHNIQUE: Procedure Code: USGB Modality: US Procedure: GALLBLADDER COMPARISON: None available. FINDINGS: Liver: Normal in size, with homogeneous parenchymal echotexture. Gallbladder: Normal. No stones, sludge, wall thickening or tenderness. Common bile duct: Normal measuring up to 0.6 cm diameter. Pancreas: Visualized portions are sonographically unremarkable. Other: Echogenic calculus within the right kidney measuring up to roughly 1.1 cm. Right kidney is otherwise normal in appearance without hydronephrosis. No right upper quadrant ascites. US/Gallbladder IMPRESSION: 1. Sonographically normal liver. 2. No cholelithiasis or biliary ductal dilatation. 3. Nonobstructive 1.1 cm right renal stone. No hydronephrosis. Reading Location: [id number]
--- NOTE | 2025-03-16 18:00 | ED.VIS.GI ---
HPI HPI - GI History of Present Illness Chief Complaint: Abd Pain Informant: patient Abdominal Pain/Flank Pain Onset: Weeks Context: Gradual Onset Timing: Intermittent Quality: Sharp and Stabbing Location: RUQ Current Severity: Mild Maximum Severity: Moderate Worsened by: Food Relieved by: Nothing Nausea/Vomiting/Emesis GI Symptom: Positive for Nausea Onset: Today Severity: Mild Diarrhea/Melena/Hematochezia GI Symptom: Positive for Diarrhea; Negative for Melena or Hematochezia Onset: Today Stool Quality: Positive for Loose Severity: Mild Associated Symptoms Associated Symptoms: Negative for Dysuria, Frequency, Hematuria or Urgency Narrative Narrative: 39-year-old female prior history of appendectomy and hysterectomy with a right ovary removed. Complaining right upper quadrant abdominal pain intermittent for last 2 weeks. After she eats she often gets the pain and gets ill. She started having nausea today and some mild loose stools. No fever. No dysuria. Still has her gallbladder. Prior similar symptoms: No Recent Illness/Hospitalization: No PFSH PFSH Medical History Cancer Smoker Home Medications ?Medication ?Instructions ?Recorded ?Last Taken ?Type cephalexin 500 mg capsule 500 mg PO Q6 #40 CAPSULES 10/21/23 Unknown Rx sulfamethoxazole 800 1 tab PO BID 10 days #20 tabs 10/21/23 Unknown Rx mg-trimethoprim 160 mg tablet (Bactrim DS) venlafaxine 150 mg 150 mg PO DAILY 10/21/23 Unknown History capsule,extended release 24 hr Allergy/AdvReac Type Severity Reaction Status Date / Time No Known Allergies Allergy Verified 03/16/25 16:08 Surgical History History of partial hysterectomy Social History Smoking Status: Current every day smoker tobacco type: cigarettes ROS ROS ED ROS Narrative Right upper quad abdominal pain. Nausea. Loose stools. Constitutional Constitutional ED: Denies chills or fever(s) ENT ENT ED: Denies ear pain Cardiovascular Cardiovascular: Denies chest pain Respiratory/Chest Respiratory/Chest: Denies cough or dyspnea Gastrointestinal Gastrointestinal: Reports abdominal pain, diarrhea and nausea; Denies constipation, melena or vomiting Genitourinary Genitourinary ED: Denies dysuria or hematuria Musculoskeletal Musculoskeletal: Denies arthralgias, back pain or myalgias Integumentary Denies abscess or Abrasions Neurologic Neurologic: Denies headache(s) Psychiatric Psychiatric: Denies anxiety Endocrine Endocrinology: Denies polydipsia Hematologic/Lymphatic Hematologic/Lymphatic: Denies easy bleeding Allergic/Immunologic Allergic/Immunologic ED: Denies mouth swelling, tongue swelling or urticaria EXAM Physical Exam Narrative Exam Narrative: 39-year female lying in a hallway bed due to the current volume. Vital signs are stable afebrile. Does not look septic toxic. H EENT exam pupils round react light. Moist mutes members. Neck nontender no JVD. No lymphadenopathy. Lungs clear to auscultation bilaterally. Heart regular rhythm rate about 105 no murmur. Chest wall ribs nontender. Abdomen soft right upper quadrant tenderness. No rebound guarding rigidity. No Moore sign. Left side and right lower quadrant completely nontender. No distention. No bruising or rash. Moving all 4 extremities. Nontender no edema. Back nontender. She is awake alert. Answer questions following commands. Const Vital Signs: 03/16/25 16:06 03/16/25 19:00 Temperature 98.4 F Temperature Source Oral Pulse Rate 105 H 97 Respiratory Rate 18 18 Blood Pressure 165/97 H 140/80 H Blood Pressure Mean 119 100 Pulse Ox 98 99 Oxygen Delivery Method Room Air Room Air Positive well nourished and well developed; Negative for cachectic, contractures or unkempt General Appearance ED: well developed and NAD; Negative for unkempt, cachectic, contractures or pallor Nutritional Appearance: Negative for cachectic HEENT Reports moist mucous membranes normocephalic and atraumatic Eyes PERRL and EOMs intact bilaterally Neck no lymphadenopathy, supple and no JVD Resp normal respiratory effort and clear to auscultation bilaterally Cardio regular rhythm, S1 normal heart sound, S2 normal heart sound and no murmurs; Negative for regular rate Rate: tachycardic GI non-distended and no masses; Negative for non-tender GI Narrative: Right upper quadrant tenderness. No rebound or guarding. No Moore sign. Auscultation: normoactive bowel sounds Palpation: soft and tender; Negative for guarding, rigid, hepatomegaly, splenomegaly, hernia, mass, pulsatile mass or rebound tenderness present Back/Spine no CVA tenderness Extremity full ROM General Extremety ED: Negative for edema General Extremity: Negative for edema Neuro CN's II-XII intact bilaterally and moves all extremities Sensorium / Orientation: alert, oriented to person, oriented to place and oriented to time Motor Exam: strength 5/5 throughout Psych mental status grossly normal and thought process normal Appearance: Negative for unkempt Skin no wounds General Skin Exam: Negative for jaundice or pallor Lesions: no lesions Rashes: no rashes Trauma: Negative for abrasion Nails: Negative for discolored MDM MDM MDM Narrative Medical decision making narrative: 39-year-old female right upper quad abdominal pain concern for gallbladder disease, cholelithiasis or Leelee cystitis. Ultrasound labs being obtained. She will be treated with morphine, Toradol and Zofran for pain and nausea. Her appendix is out she has had a prior hysterectomy. She is having no urinary symptoms. Repeat exam patient is doing well at 9:04 PM. We went over her test results. She will be discharged home with right upper quadrant abdominal pain uncertain etiology follow-up for further evaluation. Abdomen currently is benign. History & Record Review Discussion w/independent historian: Patient and Family Additional record(s) reviewed:: Prior inpatient record, Prior outpatient record, Prior ED visit and Prior labs Lab Data Attestation: I reviewed the patient's lab results. Lab results narrative: CBC shows a white count of 10. H&H of 15 and 47. Platelets 270. Electrolytes unremarkable gap 13. Normal BUN of 11 creatinine 0.7. Glucose 97. Liver enzymes normal. Lipase is normal at 20. Right upper quadrant ultrasound showed Normal liver. No gallstones and no ductal dilatation. Labs: Laboratory Results - last 24 hr 03/16/25 18:01 WBC 10.5 RBC 5.19 Hgb 15.8 H Hct 47.0 MCV 90.6 MCH 30.4 MCHC 33.6 RDW Std Deviation 44.1 H RDW Coeff of Bean 13.2 Plt Count 270 MPV 9.5 Immature Gran % (Auto) 0.400 Neut % (Auto) 60.0 Lymph % (Auto) 30.4 Ballard % (Auto) 6.0 Eos % (Auto) 2.5 Baso % (Auto) 0.7 Absolute Neuts (auto) 6.3 Absolute Lymphs (auto) 3.19 Nucleated RBC % 0 Sodium 138 Potassium 4.0 Chloride 101 Carbon Dioxide 23.3 Anion Gap 13 BUN 11 Creatinine 0.70 Estim Creat Clear Calc 107.37 Est GFR (MDRD) Non-Af 114 BUN/Creatinine Ratio 16.1 Glucose 97 Calcium 9.2 Total Bilirubin 0.53 AST 21 ALT 13 Alkaline Phosphatase 99 Total Protein 7.2 Albumin 4.5 Globulin 2.8 Albumin/Globulin Ratio 1.6 Lipase 20 Radiography Diagnostic Testing: Clinical Impression(s) from Imaging Studies Gallbladder Ultrasound 03/16/25 17:54 IMPRESSION: 1. Sonographically normal liver. 2. No cholelithiasis or biliary ductal dilatation. 3. Nonobstructive 1.1 cm right renal stone. No hydronephrosis. Reading Location: [id number] Discharge Plan Triage Chief Complaint: Abd Pain ED Provider: Jonh Salazar Dx/Rx/DC Orders Clinical Impression: Abdominal pain Instructions: Abdominal Pain Prescriptions: No Action venlafaxine 150 mg capsule,extended release 24hr 150 mg PO DAILY sulfamethoxazole-trimethoprim [Bactrim DS] 800-160 mg tablet 1 tab PO BID 10 Days Qty: 20 0RF cephalexin 500 mg capsule 500 mg PO Q6 Qty: 40 0RF Primary Care Provider: Dashawn Waite Referrals: Dashawn Waite DO [Primary Care Provider, Family Practice] - As soon as possible Activity Restrictions/Additional Instructions: Your tests are normal. Your blood works normal. Your ultrasound does not show gallstones or gallbladder disease. Motrin and Tylenol for pain. Follow-up with your doctor for further evaluation. They may have to get a HIDA scan which is a different test of your gallbladder. Return to emergency ferment if having worsening pain develop fever or intractable vomiting. Print Language: Georgian Disposition Disposition: Home, Self Care
[2025-03-16 18:12] LABS: Hematocrit 47.0 % (37-47); Hemoglobin 15.8 g/dL (12.0-15.0); Immature Granulocytes Count 0.040 X10^3/uL (0.0-0.0); Mean Corp Hgb Conc 33.6 g/dL (32-36); Mean Corpuscular Volume 90.6 fL (81-99); Mean Platelet Vol. 9.5 fl (6.2-12.0); NRBC Flagged by Analyzer 0 % (0-5); Platelet Count 270 K/mm3 (150-450); RBC Distribution Width CV 13.2 % (11.6-14.6); RBC Distribution Width SD 44.1 fl (35.1-43.9); Red Blood Count 5.19 M/mm3 (4.2-5.4); White Blood Count 10.5 K/mm3 (4.4-11.0)
[2025-03-16] MEDS: Ketorolac 30 MG/ML Syringe IV (18:24)
--- OUTSIDE RECORDS SUMMARY | 2025-03-16 18:39 | XMS RPT_ITS | CCD ---
Author Organization [facility] Care Team Providers Care Marketing And Communications Officer Name Role Phone Unavailable Primary Care Provider UnavailLINA Lopez Referring Unavailable LINA FINN Attending Unavailable Mariann NEAL DO, Michael Primary Care Provider [phone] Mariann NEAL DO, Michael A Primary Care Provider ZAKIA NUNEZ DO Attending Unavailable ZAKIA NUNEZ DO Primary Care Unavailable Care Physician, No Primary Primary Care Provider Unavailable Care Physician, No Primary Referring Provider Un available GABRIELA Garcia Attending Provider Mariann NEAL DO, Michael A Primary Care Provider [phone]( [phone] Jose Garcia Attending Unavailable Care Physician, No Primary Primary Care Unava ilable Care Physician, No Primary Referring Unava ilable Zakia Nunez Primary Care Unavailable Tyrel Mares Attending Unavailable Jeffrey Stearns Attending Unavailable Zakia Nunez Primary Care Unavailable REGGIE ASHBY Attending Unavailable ZAKIA NUNEZ IV Primary Care Unavailable ZAKIA AUGUSTINE Attending Unavailable ZAKIA NUNEZ IV Primary Care Unavailable ZAKIA NUNEZ IV Primary Care Unavailable PATRICK GONG Referring Unavailable PATRICK GONG Attending Unavailable ZAKIA NUNEZ IV Primary Care Unavailable Medications Current Medications Medication Drug Class(es) Dates Sig (Normalized) Sig (Original) acetaminophen 325 mg oral tablet (1 source) Start: 10-04-2020 take 2 tablets by mouth every four hours as needed Acetaminophen (Tylenol) 325 mg Tablet Active 650 MG PO EVERY 4 HOURS NEEDED October 04, 2020 12:00am acetaminophen 325 mg / HYDROcodone bitartrate 5 mg oral tablet (5 sources) Opioid Agonist Start: 09-02-2020 End: 09-05-2020 take 1 tablet by mouth every six hours as needed for pain, then take 1 tablet by mouth as needed for pain HYDROcodone-acetami nophen (NORCO) 5-325 MG per tablet Indications: Pain, dental , Dental caries Take 1 tablet by mouth every 6 hours as needed for Pain for up to 3 days. Intended supply: 3 days. Take lowest dose possible to manage pain 8 tablet 0 09/02/2020 09/05/2020 Active Start: 09-02-2020 End: 09-02-2020 HYDROcodone-acetaminophen (N ORCO) 5-325 MG per tablet 1 tablet Start: 08-01-2019 End: 08-04-2019 take 1 tablet by mouth every six hours as needed Hydrocodone-Acetaminophen Discontinued 1 TABLET PO EVERY 6 HOURS NEEDED 10 August 01, 2019 August 04, 2019 1:09am Start: 07-03-2019 End: 07-06-2019 take 1 tablet by mouth every six hours as needed Hydrocodone-Acetaminophen Discontinued 1 TABLET PO EVERY 6 HOURS NEEDED 6 July 03, 2019 July 06, 2019 1:08am Start: 11-06-2018 End: 11-08-2018 take 1 tablet by mouth every four hours as needed Hydrocodone-Acetaminophen Discontinued 1 TABLET PO EVERY 4 HOURS NEEDED 10 2 November 06, 2018 12:00am November 08, 2018 12:07am [id number] 200 actuat albuterol 0.09 mg/actuat metered dose inhaler (14 sources) beta2-Adrenergic Agonist Start: 11-25-2017 take 2 puff(s) by inhalation every four hours as needed albuterol HFA (PROVENTIL HFA, VENTOLIN HFA) 90 mcg/actuation inhaler Indications: Wheezing Inhale 2 Puffs as instructed every 4 hours as needed. 1 Inhaler 07/12/2018 Active Comment on above: Inhale 2 Puffs as in structed every 4 hours as needed. amitriptyline hydrochloride 25 mg oral tablet (7 sources) Tricyclic Antidepressant take 1 tablet by mouth once daily at bedtime amitriptyline (ELAVIL) 25 mg tablet Take 25 mg by mouth daily at bedtime. Active Comment on above: Take 25 mg by mouth daily at bedtime. amoxicillin 875 mg oral tablet (1 source) Penicillin-class Antibacterial Start: 09-22-2022 End: 09-29-2022 take 1 tablet by mouth twice daily amoxicillin (AMOXIL) 875 mg tablet Indications: Acute otitis media, left Take 1 tablet by mouth twice daily for 7 days. 14 tablet 0 09/22/2022 09/29/2022 Active Comment on above: Take 1 tablet by kt th twice daily for 7 days. amoxicillin 875 mg / clavulanate 125 mg oral tablet (1 source) Penicillin-class Antibacterial Start: 12-17-2024 End: 12-24-2024 take 1 tablet by mouth every twelve hours amoxicillin-clavu lanate potassium (AUGMENTIN) 875-125 mg per tablet Indications: Acute otitis media, left Take 1 tablet by mouth every 12 hours for 7 days. 14 tablet 12/17/2024 12/24/2024 Active benzonatate 100 mg oral capsule (7 sources) Non-narcotic Antitussive Start: 07-12-2018 take 1 capsule by mouth three times daily as needed benzonatate (TESSALON PERLE) 100 mg capsule Indications: Influenza-like illness Take 1 capsule by mouth three times daily as needed. 60 capsule 07/12/2018 Active Comment on above: Take 1 capsule by mo [facility] three times daily as needed. doxycycline monohydrate 100 mg oral tablet (1 source) Tetracycline-class Drug Start: 12-03-2024 End: 12-10-2024 take 1 tablet by mouth twice daily doxycycline monohydrate 100 mg tablet Take 1 tablet by mouth two times a day for 7 days. 14 tablet 12/03/2024 12/10/2024 Active LORazepam 0.5 mg oral tablet (7 sources) Benzodiazepine LORazepam (ATIVAN) 0.5 mg Take by mouth three times daily as needed. Active Comment on above: Take by mouth three times daily as needed. naproxen 500 mg oral tablet (8 sources) Nonsteroidal Anti-inflammatory Drug Start: 08-21-2015 End: 11-13-2016 take 1 tablet by mouth twice daily at mealtime naproxen (NAPROSYN) 500 mg tablet Indications: Abnormal uterine bleeding , Dysmenorrhea Take 1 tablet by mouth twice daily with meals. 50 tablet 6 08/26/2015 Active Comment on above: Take 1 tablet by kt twice daily with meals. Kerrick (Nk) (1 source) Start: 10-04-2020 Kerrick (Nk) Active October 04, 2020 12:00am oxyCODONE hydrochloride 5 mg oral tablet (3 sources) Opioid Agonist Start: 10-04-2020 take 5-10 mg by mouth every four hours as needed Oxycodone Active 5 - 10 MG PO EVERY 4 HOURS NEEDED 30 October 04, 2020 Start: 03-07-2019 End: 03-13-2019 take 5 mg by mouth every six hours as needed Oxycodone Discontinued 5 MG PO EVERY 6 HOURS NEEDED 12 March 07, 2019 March 13, 2019 12:09am Start: 02-23-2019 End: 02-27-2019 take 5 mg by mouth every six hours as needed Oxycodone Discontinued 5 MG PO EVERY 6 HOURS NEEDED 09 30February 23, 2019 February 27, 2019 12:09am penicillin v potassium 500 mg oral tablet (2 sources) Start: 09-02-2020 End: 09-12-2020 take 1 tablet by mouth four times daily penicillin v potassium (VEETID) 500 MG tablet Take 1 tablet by mouth 4 times daily for 10 days 40 tablet 0 09/02/2020 09/12/2020 Active Start: 09-02-2020 End: 09-02-2020 penicillin v potassium (VEET ID) tablet 500 mg predniSONE 20 mg oral tablet (1 source) Start: 12-17-2022 End: 12-22-2022 take 2 tablets by mouth once daily predniSONE (DELTASONE) 20 mg tablet Indications: Viral URI Take 2 tablets by mouth once daily for 5 days. 10 tablet 0 12/17/2022 12/22/2022 Active Comment on above: Take 2 tablets by [facility] once daily for 5 days. triamcinolone acetonide 0.25 mg/ml topical cream (7 sources) Corticosteroid Start: 10-18-2017 triamcinolone (KENALOG) 0.025 % cream Indications: Allergic dermatitis due to poison [place] Apply 1 application to affected area twice daily. 15 g 10/18/2017 Active Comment on above: Apply 1 application to affected area twice daily. 24 hr venlafaxine 225 mg extended release oral tablet (9 sources) Serotonin and Norepinephrine Reuptake Inhibitor Start: 10-09-2024 take 1 tablet by mouth once daily venlafaxine XR (EFFEXOR XR) 225 mg tablet Take 1 tablet by mouth once daily. 10/09/2024 Active Start: 07-22-2022 take 1 capsule by mo [facility] once daily venlafaxine ER (EFFEXOR XR) 75 mg 24 hr capsule Take 150 mg by mouth once daily. 07/22/2022 Active Start: 07-22-2022 take 1 capsule by mo [facility] once daily venlafaxine ER (EFFEXOR XR) 75 mg 24 hr capsule Take 75 mg by mouth once daily. 0 07/22/2022 Active Comment on above: Take 75 mg by mouth once daily. Completed/Discontinued Medications Medication Drug Class(es) Dates Sig (Normalized) Sig (Original) acetaminophen 325 mg / oxyCODONE hydrochloride 5 mg oral tablet (1 source) Opioid Agonist Start: 03-16-2019 End: 03-23-2019 Oxycodone-Acetamin ophen Discontinued 1 EACH PO NEEDED March 16, 2019 12:00am March 23, 2019 5:27pm diclofenac sodium 50 mg delayed release oral tablet (1 source) Nonsteroidal Anti-inflammatory Drug Start: 03-07-2019 End: 03-23-2019 take 50 mg by mouth three times daily at mealtime Diclofenac Sodium Discontinued 50 MG PO 3 TIMES DAILY WITH MEALS March 07, 2019 3:50pm March 23, 2019 5:29pm ibuprofen 600 mg oral tablet (1 source) Nonsteroidal Anti-inflammatory Drug Start: 02-23-2019 End: 03-08-2019 take 600 mg by mouth three times daily Ibuprofen Discontinued 600 MG PO THREE TIMES A DAY 27 12February 23, 2019 9:31am March 08, 2019 12:08am lidocaine 2 % 2 mL buffered injection (XYLOCAINE) (2 sources) Start: 12-03-2024 End: 12-03-2024 lidocaine 2 % 2 mL buffered injection (XYLOCAINE) Start: 12-03-2024 End: 12-03-2024 2 mL, OTHER, ONCE, 1 dose, S tarting on 12/03/24 at 1455, Until 12/03/24 at 1455 Problems Problem Classification Problem Date Documented Date Episodic/Chronic Abdominal pain (2 sources) Pain in pelvis; Translations: [Pelvic and perineal pain] 01-26-2016 Episodic Anxiety disorders (1 source) Generalized anxiety disorder; Translations: [Generalized anxiety disorder] Chronic Appendicitis and other appendiceal conditions (1 source) Acute appendicitis; Translations: [Unspecified acute appendicitis] 05-07-2021 Episodic Cancer of cervix (1 source) High grade squamous intraepithelial lesion on cervical Papanicolaou smear; Translations: [High grade squamous intraepithelial lesion on cytologic smear of cervix (HGSIL)] 02-22-2019 Episodic Disorders of teeth and jaw (2 sources) Toothache; Translations: [Dental caries] Episodic Fever of unknown origin (2 sources) Fever; Translations: [Fever, unspecified] 12-17-2022 Episodic Gastritis and duodenitis (2 sources) Acute gastritis without bleeding; Translations: [Acute gastritis without bleeding] Onset: 05-13-2022 Episodic Headache; including migraine (9 sources) Migraine; Translations: [Migraine, unspecified, not intractable, without status migrainosus] Onset: 03-17-2010 03-17-2010 Chronic Headache; including migraine (1 source) Headache; including migraine; Translations: [Headache, unspecified] Onset: 04-06-2023 Immunizations and screening for infectious disease (1 source) Suspected disease caused by 2019-nCoV; Translations: [Suspected COVID-19 virus infection] 12-08-2019 Episodic Lymphadenitis (1 source) Cervical lymphadenopathy; Translations: [Localized enlarged lymph nodes] 10-04-2023 Episodic Menstrual disorders (10 sources) Dysmenorrhea; Translations: [Dysmenorrhea, unspecified] Onset: 08-26-2015 08-26-2015 Chronic Nutritional deficiencies (2 sources) Vitamin D deficiency, unspecified; Translations: [Vitamin D deficiency, unspecified] Onset: 01-20-2023 Chronic Other female genital disorders (7 sources) Abnormal uterine bleeding; Translations: [Abnormal uterine and vaginal bleeding, unspecified] Onset: 08-26-2015 08-26-2015 Chronic Other screening for suspected conditions (not mental disorders or infectious disease) (2 sources) Encounter for screening for cardiovascular disorders; Translations: [Encounter for screening for cardiovascular disorders] Onset: 01-20-2023 Episodic Other upper respiratory infections (5 sources) Viral upper respiratory tract infection; Translations: [Acute upper respiratory infection, unspecified] Onset: 01-03-2025 12-17-2022 Episodic Otitis media and related conditions (3 sources) Acute left otitis media; Translations: [Otitis media, unspecified, left ear] Onset: 12-17-2024 Episodic Ovarian cyst (3 sources) Cyst of ovary; Translations: [Unspecified ovarian cyst, unspecified side] 10-04-2020 Episodic Residual codes; unclassified (2 sources) Flushing; Translations: [Flushing] Onset: 01-20-2023 Episodic Skin and subcutaneous tissue infections (3 sources) Cutaneous abscess of perineum; Translations: [Paronychia of finger of right hand] Onset: 10-29-2023 12-03-2024 Episodic Unclassified (1 source) Acute cough; Translations: [Acute cough] Onset: 01-03-2025 Results Test Name Value Interpretation Reference Range Facility CNOVon 01-03-2025 CNOV Office Visit ([facility]) LAWANDA OLIVEIRA ([id number]) 1985 F Date Time Provider Department 01/03/25 3:30 PM PATRICK GONG During your visit today, we recorded the following information about you: Temperature Pulse Respiration Blood pressure 99.6 degrees 100/minute 16/minute 118/78 Weight 72.7 kg Patrick Gong APRN.COOK FRY 01/03/2025 5:20 PM Signed [facility] Subjective HPI HPI Lawanda Humphrey Tee is a 39 year old female who presents today for CC of cough, st, fever, h/a. This started 1 day ago. Has tried otc medication for relief. Symptoms are worsened by nothing. Risk factors smoker. Denies possibility of being . .Patient presents with: Allergic Reaction: Sore throat, congestion, MARKS, cough x 1 day PAST MEDICAL HISTORY Diagnosis Date Hearing loss IBS (irritable bowel syndrome) PAST SURGICAL HISTORY Procedure Laterality Date COLONOSCOPY FLX DX W/COLLJ SPEC WHEN PFRMD 3 to 4 years ago Colonoscopy ESOPHAGOGASTRODUODENOS COPY TRANSORAL DIAGNOSTIC 3 to 4 years ago EGD EXTRACTION ERUPTED TOOTH/EXR September 2011 4 teeth. All at once. MYRINGOTOMY HX Tube R ear only. ALLERGIES Patient has no known allergies. MEDICATIONS venlafaxine XR (EFFEXOR XR) 225 mg tablet Take 1 tablet by mouth once daily. venlafaxine ER (EFFEXOR XR) 75 mg 24 hr capsule Take 150 mg by mouth once daily. (Patient not taking: Reported on 12/03/2024) LORazepam (ATIVAN) 0.5 mg Take by mouth three times daily as needed. (Patient not taking: Reported on 12/17/2024) benzonatate (TESSALON PERLE) 100 mg capsule Take 1 capsule by mouth three times daily as needed. (Patient not taking: Reported on 05/10/2019 ) albuterol HFA (PROVENTIL HFA, VENTOLIN HFA) 90 mcg/actuation inhaler Inhale 2 Puffs as instructed every 4 hours as needed. (Patient not taking: Reported on 05/10/2019 ) amitriptyline (ELAVIL) 25 mg tablet Take 25 mg by mouth daily at bedtime. (Patient not taking: Reported on 12/17/2022) albuterol HFA (PROAIR HFA) 90 mcg/actuation inhaler Inhale 2 Puffs as instructed every 4 hours as needed. (Patient not taking: Reported on 07/12/2018 ) triamcinolone (KENALOG) 0.025 % cream Apply 1 application to affected area twice daily. (Patient not taking: Reported on 07/12/2018 ) naproxen (NAPROSYN) 500 mg tablet Take 1 tablet by mouth twice daily with meals. (Patient not taking: Reported on 05/10/2019 ) FAMILY HISTORY Problem Relation Age of Onset Hearing Loss Father other (hirsutism [Other]) Mother other (Endometrosis [Other]) Mother Ovarian cysts Social History Tobacco Use Smoking status: Every Day Current packs/day: 0.50 Average packs/day: 0.5 packs/day for 6.0 years (3.0 ttl pk-yrs) Types: Cigarettes Smokeless tobacco: Never Substance Use Topics Alcohol use: Yes Comment: Occasionally Drug use: No Review of Systems Constitutional: Positive for fever. Negative for chills and fatigue. HENT: Positive for rhinorrhea and sore throat. Negative for ear discharge, ear pain, sinus pressure and sinus pain. Eyes: Negative for discharge and redness. Respiratory: Positive for cough. Negative for shortness of breath and wheezing. Cardiovascular: Negative for chest pain. Skin: Negative for rash. Neurological: Positive for headaches. Objective BP 118/78 Pulse 100 Temp 37.6 ?C (99.6 ?F) Resp 16 Wt 72.7 kg (160 lb 4.4 oz) LMP 08/21/2015 (Exact Date) SpO2 99% BMI 28.39 kg/m? Physical Exam Constitutional: General: She is not in acute distress. Appearance: She is not toxic-appearing or diaphoretic. HENT: Head: Normocephalic and atraumatic. Right Ear: Hearing and external ear normal. Left Ear: Hearing and external ear normal. Nose: Nose normal. Mouth/Throat: Lips: [place]. Mouth: Mucous membranes are moist. Pharynx: Uvula midline. Posterior oropharyngeal erythema present. Eyes: General: Lids are normal. No scleral icterus. Right eye: No discharge. Left eye: No discharge. Conjunctiva/sclera: Conjunctivae normal. Pupils: Pupils are equal, round, and reactive to light. Neck: Trachea: Trachea normal. Cardiovascular: Rate and Rhythm: Normal rate and regular rhythm. Heart sounds: Normal heart sounds. Pulmonary: Effort: Pulmonary effort is normal. Breath sounds: Examination of the right-lower field reveals wheezing and rhonchi. Wheezing and rhonchi present. No decreased breath sounds or rales. Musculoskeletal: Cervical back: Normal range of motion and neck supple. Lymphadenopathy: Cervical: No cervical adenopathy. Skin: Findings: No rash. Neurological: Mental Status: She is alert and oriented to person, place, and time. {ASSESSMENT/PLAN: 1. URI, acute - ICD9: 465.9, ICD10: J06.9 (primary diagnosis) - Discussed viral etiology and rationale for treatment. - Symptomatic treatment with prn analgesia - Supportive care with fluids and rest (more content not included)... Normal [facility] XR CHEST 2V FRONTAL/LATon XR CHEST 2V FRONTAL/LAT * * *Final Report* * * DATE OF EXAM: Jan 03 2025 4:26PM WOX [id number] - XR CHEST 2V FRONTAL/LAT / PROCEDURE REASON: Acute cough * * * * Physician Interpretation * * * * EXAMINATION: CHEST RADIOGRAPH (2 VIEW FRONTAL and LATERAL) CLINICAL HISTORY: Acute cough MQ: [id number] EXAM DATE/TIME: 01/03/2025 4:26 PM COMPARISON: 12/17/2022 RESULT: Lines, tubes, and devices: None. Lungs and pleura: No consolidation. No lung mass. No pleural effusion. No pneumothorax. Cardiomediastinal silhouette: Normal cardiomediastinal silhouette. Bones and soft tissues: Unremarkable. IMPRESSION: No acute radiographic abnormality. Book Store Associate: TORSTEN Transcribe Date/Time: Jan 03 2025 4:27P Dictated by : EMIL RUST MD This examination was interpreted and the report reviewed and electronically signed by: EMIL RUST MD on Jan 03 2025 4:27PM EST [id number] Normal [facility] CNOVon 12-17-2024 CNOV Office Visit ([facility]) LAWANDA OLIVEIRA ([id number]) 1985 F Date Time Provider Department 12/17/24 11:00 AM ZAKIA AUGUSTINE During your visit today, we recorded the following information about you: Temperature Pulse Respiration Blood pressure 98.7 degrees 110/minute 16/minute 118/68 Weight 71.5 kg Zakia Augustine MD 12/17/2024 11:06 AM Signed Otitis Media You have been diagnosed with otitis media. This is a middle ear infection. Otitis media is inflammation of the middle ear. It is most common in children 6 months to 3 years old. However, it can happen at any age. It is caused by either a bacteria or a virus and often follows a viral upper respiratory (lung) infection. Some otitis media symptoms are: Fever (temperature higher than 100.4?F / 38?C) and ear pain. There may also be a feeling of fullness in the ear or decreased hearing. If the eardrum ruptures (splits), there may also be drainage from the ear. In the [facility], otitis media is often treated with antibiotics. It is also often treated with pain medicines like acetaminophen (Tylenol?) or ibuprofen (Advil? or Motrin?) and sometimes with pain-relieving eardrops. In many other countries, otitis media is not treated with antibiotics. However, the outcome seems to be the same: The ear clears up on its own! Most cases of otitis media get better over 2-3 days with treatment. Take the antibiotic as directed and finish the whole prescription. Follow up with your doctor in 4-6 weeks. This will be to make sure the fluid in the middle ear has cleared. YOU SHOULD SEEK MEDICAL ATTENTION IMMEDIATELY, EITHER HERE OR AT THE NEAREST EMERGENCY DEPARTMENT, IF ANY OF THE FOLLOWING OCCURS: You do not get better, despite treatment. Symptoms become worse. A severe headache, stiff neck, lethargy (excessive fatigue and sleepiness) or confusion develops. Zakia Augustine MD 12/17/2024 11:09 AM Signed [facility] Subjective Lawanda Oliveira is a 39 year old female. Patient presents with: Ear Problem: bilateral ears feel clogged with pain x 2 days Pt with hx of ear infections now uri sx 2 days and eaqr pain feels clogged and fullness no sinus [pain no marks Ear Problem Associated symptoms include hearing loss. Pertinent negatives include no ear discharge or headaches. Review of Systems Constitutional: Negative for chills, fatigue and fever. HENT: Positive for congestion, ear pain and hearing loss. Negative for ear discharge, facial swelling, postnasal drip, sinus pressure and sinus pain. Neurological: Negative for dizziness and headaches. Objective BP 118/68 Pulse 110 Temp 37.1 ?C (98.7 ?F) Resp 16 Wt 71.5 kg (157 lb 10.1 oz) LMP 08/21/2015 (Exact Date) SpO2 99% BMI 27.92 kg/m? Physical Exam Vitals and nursing note reviewed. Constitutional: Appearance: Normal appearance. She is not ill-appearing. HENT: Ears: Comments: Right canal cerumen present left Tm red and bulging Nose: Congestion present. Mouth/Throat: Mouth: Mucous membranes are moist. Pharynx: Oropharynx is clear. Cardiovascular: Rate and Rhythm: Normal rate and regular rhythm. Heart sounds: Normal heart sounds. Pulmonary: Effort: Pulmonary effort is normal. Breath sounds: Normal breath sounds. No stridor. No wheezing, rhonchi or rales. Neurological: Mental Status: She is alert and oriented to person, place, and time. Psychiatric: Mood and Affect: Mood normal. Behavior: Behavior normal. {ASSESSMENT/PLAN: 1. Acute otitis media, left - ICD9: 382.9, ICD10: H66.92 Return here as needed - AMOXICILLIN 875 MG-POTASSIUM CLAVULANATE 125 MG TABLET For right ear peroxide drops place for wax presnt but no irrigation due to concern for OM Zakia Augustine MD Differential Diagnoses - OM is more likely for the following reason(s): suggested by HANDP - OE is less likely for the following reason(s): HANDP not suggestive Disposition The patient was discharged. Procedures Allergies As of Date: 12/17/2024 (No Known Allergies) Date Reviewed: 12/17/2024 Reviewed by: Sonia Sears MA - Fully Assessed Reason for Visit: Ear Problem [38] Cmt: bilateral ears feel clogged with pain x 2 days Primary Visit Diagnosis:Acute otitis media, left [H66.92] Order(s):amoxicillin-c lavulanate potassium (AUGMENTIN) 875-125 mg per tabletTake 1 tablet by mouth every 12 hours for 7 days.Disp: 14 tabletRfl: 0 Prescriptions as of 12/17/2024 - amoxicillin-clavulanat e potassium (AUGMENTIN) 875-125 mg per tablet Take 1 tablet by mouth every 12 hours for 7 days. - venlafaxine XR (EFFEXOR XR) 225 mg tablet Take 1 tablet by mouth once daily. - venlafaxine ER (EFFEXOR XR) 75 mg 24 hr capsule Take 150 mg by mouth once daily. - LORazepam (ATIVAN) 0.5 mg Take by mouth three times daily as needed. - benzonatate (TESSALON PERLE) 100 mg capsule (more content not included)... Normal [facility] CNOVon 12-03-2024 CNOV Office Visit ([facility] ) LAWANDA OLIVEIRA ([id number]) 1985 F Date Time Provider Department 12/03/24 2:30 PM REGGIE ASHBY [facility] During your visit today, we recorded the following information about you: Temperature Pulse Respiration Blood pressure 98.8 degrees 94/minute 18/minute 148/95 Weight 73.6 kg Reggie Ashby APRN.COOK FRY 12/03/2024 3:54 PM Signed [facility] Subjective Lawanda Oliveira is a 39 year old female. Patient presents with: Derm Problem: R hand index finger infection x1.5 months HPI patient is a 39-year-old female presents with a right index finger swelling and erythema around the nailbed for the last month and a half. States that it did open and drain 1 time and just came back. She denies any erythema or swelling is going up the hand. Denies any fever body aches or myalgia still has full range of motion of the finger but states the swelling will not go away. Review of Systems Constitutional: Negative for chills, fatigue and fever. Musculoskeletal: Negative for joint swelling. Skin: Positive for wound. Objective BP 148/95 Pulse 94 Temp 37.1 ?C (98.8 ?F) Resp 18 Wt 73.6 kg (162 lb 4.1 oz) LMP 08/21/2015 (Exact Date) SpO2 99% BMI 28.74 kg/m? PAST MEDICAL HISTORY Diagnosis Date Hearing loss IBS (irritable bowel syndrome) PAST SURGICAL HISTORY Procedure Laterality Date COLONOSCOPY FLX DX W/COLLJ SPEC WHEN PFRMD 3 to 4 years ago Colonoscopy ESOPHAGOGASTRODUODENOS COPY TRANSORAL DIAGNOSTIC 3 to 4 years ago EGD EXTRACTION ERUPTED TOOTH/EXR September 2011 4 teeth. All at once. MYRINGOTOMY HX Tube R ear only. ALLERGIES Patient has no known allergies. MEDICATIONS venlafaxine XR (EFFEXOR XR) 225 mg tablet Take 1 tablet by mouth once daily. venlafaxine ER (EFFEXOR XR) 75 mg 24 hr capsule Take 150 mg by mouth once daily. (Patient not taking: Reported on 12/03/2024) LORazepam (ATIVAN) 0.5 mg Take by mouth three times daily as needed. benzonatate (TESSALON PERLE) 100 mg capsule Take 1 capsule by mouth three times daily as needed. (Patient not taking: Reported on 05/10/2019 ) albuterol HFA (PROVENTIL HFA, VENTOLIN HFA) 90 mcg/actuation inhaler Inhale 2 Puffs as instructed every 4 hours as needed. (Patient not taking: Reported on 05/10/2019 ) amitriptyline (ELAVIL) 25 mg tablet Take 25 mg by mouth daily at bedtime. (Patient not taking: Reported on 12/17/2022) albuterol HFA (PROAIR HFA) 90 mcg/actuation inhaler Inhale 2 Puffs as instructed every 4 hours as needed. (Patient not taking: Reported on 07/12/2018 ) triamcinolone (KENALOG) 0.025 % cream Apply 1 application to affected area twice daily. (Patient not taking: Reported on 07/12/2018 ) naproxen (NAPROSYN) 500 mg tablet Take 1 tablet by mouth twice daily with meals. (Patient not taking: Reported on 05/10/2019 ) FAMILY HISTORY Problem Relation Age of Onset Hearing Loss Father other (hirsutism [Other]) Mother other (Endometrosis [Other]) Mother Ovarian cysts Social History Tobacco Use Smoking status: Every Day Current packs/day: 0.50 Average packs/day: 0.5 packs/day for 6.0 years (3.0 ttl pk-yrs) Types: Cigarettes Smokeless tobacco: Never Substance Use Topics Alcohol use: Yes Comment: Occasionally Drug use: No Physical Exam Constitutional: General: She is not in acute distress. Appearance: Normal appearance. She is not ill-appearing or toxic-appearing. HENT: Head: Normocephalic and atraumatic. Pulmonary: Effort: Pulmonary effort is normal. Skin: Comments: Tenderness over the right index fold of right index fold with erythma and swelling Neurological: Mental Status: She is alert. {ASSESSMENT/PLAN: 1. Paronychia of finger of right hand - ICD9: 681.02, ICD10: L03.011 - No lymphangetic streaking, this was defined for patient to watch for and to seek medical care immediately if appears - Area of cellulitis defined with pen, seek further attention if this area continues to enlarge - - Follow up for with primary care provider if symptoms persist. - I and D in clinic - ER if erythema swelling, fever or worsening of symptoms such as sudden severe pain. - Started on Doxycline Reggie Ashby APRN.CNP Differential Diagnoses - Paronychia is more likely for the following reason(s): suggested by HANDP - Cellulitis is less likely for the following reason(s): HANDP not suggestive - Abscess is less likely for the following reason(s): HANDP not suggestive - Felon is less likely for the following reason(s): HANDP not suggestive Disposition The patient was discharged. OTC Medications were advised: Tylenol and Ibuprofen Incision and Drainage: right index finger Performed by: Reggie Ashby APRN.CNP Authorized by: Reggie Ashby APRN.CNP Informed Consent Consent Obtained: Verbal [place] Protocol SIGN IN TIME OUT Pre-Procedure Details: The area (more content not included)... Normal [facility] Incision and Drainage: right index fingeron 12-03-2024 Reggie Ashby APRN.C SOUND EFFECTS PERSON 12/03/2024 3:54 PM Incision and Drainage: right index finger Performed by: Reggie Ashby APRN.CNP Authorized by: Reggie Ashby APRN.CNP Informed Consent Consent Obtained: Verbal [place] Protocol SIGN IN TIME OUT Pre-Procedure Details: The area was prepped with alcohol and allowed to dry. Procedure Details: Number of Locations: 1 Location 1: Indication: Abscess Body area: Upper extremity Location Details: Right index finger Scalpel Size: 11 Incision Depth: Superficial and soft tissue Complexity: Simple Drainage: Green and purulent Drainage Amount: Small Drainage Device: None Medications: 2 mL lidocaine 2 % Comments: Digital block with non-epi, buffered palmar approach Patient tolerated procedure well [facility] Emergency Department Summary on 10-21-2023 Emergency Department Summary [facility] Medical Records Department [address] [place] [address] Emergency Department Summary 10/21/23 MR#: [id number] Acct: [id number] Name: LAWANDA JONAS Rep #: [id number] : 1985 38 From: Jeffrey Stearns DO PCP: Dr. Zakia Nunez DO Status:DEP ER Location: ED HPI History of Present Illness Chief Complaint: Abscess Narrative Narrative: Patient is a 38-year-old female with no significant medical history presents to the emergency department with a cyst/abscess to the skin just above her vagina. Patient states that she has been having this for multiple months. Patient states that it usually gets bigger and smaller. However today it is much more painful and red and she is here for evaluation. Patient denies any fever or chills, patient denies any nausea or vomiting. Patient said the pain is getting more significant. PFSH PFS Medical History Cancer Smoker Home Medications ???Medication ???Instructions ???Recorded ???Last Taken ???Type cephalexin 500 mg capsule 500 mg PO Q6 #40 CAPSULES 10/21/23 Unknown Rx sulfamethoxazole 800 1 tab PO BID 10 days #20 tabs 10/21/23 Unknown Rx mg-trimethoprim 160 mg tablet (Bactrim DS) venlafaxine 150 mg 150 mg PO DAILY 10/21/23 Unknown History capsule,extended release 24 hr Allergy/AdvReac Type Severity Reaction Status Date / Time No Known Allergies Allergy Verified 10/21/23 13:50 Surgical History History of partial hysterectomy Social History Smoking Status: Current every day smoker tobacco type: cigarettes ROS ROS ED ROS Narrative Constitutional: Negative for fever, chills, weight loss, weakness Eyes: Negative for vision loss, vision change, double vision ENT: Negative for any sore throat, ear pain, congestion Cardiovascular: Negative for any chest pain, tightness, palpitations Respiratory: Negative for any cough, sputum production, hemoptysis, dyspnea, dyspnea on exertion, orthopnea Gastrointestinal: Negative for any abdominal pain, nausea, vomiting, diarrhea, constipation, blood in stool, blood in vomit : Negative for any urinary frequency, dysuria, retention, blood in urine Muscle skeletal: Negative for any neck pain, back pain Neurological: Negative for any headache, syncope, dizziness Skin: Negative for any rashes, itching, abrasions, lacerations. Positive abscess to the suprapubic area Psychiatric: Negative for any depression, anxiety, stress, suicidal ideation, homicidal ideation Hematologic: Negative for any excessive bruising, easy bleeding EXAM Physical Exam Narrative Exam Narrative: Vital signs reviewed. HEET: Head normocephalic atraumatic, TMs clear bilaterally. Posterior pharynx is clear, moist mucous membranes. Nares clear bilaterally. Neck: Supple with no lymphadenopathy or tenderness. No signs of meningismus. Cardiac: Regular rate and rhythm no murmurs gallops or rubs, equal peripheral pulses bilaterally. Respiratory: Lungs clear to auscultation bilaterally. No chest tenderness. Abdomen: Soft, nontender, nondistended. No abdominal bruit or pulsatile masses. No hepatosplenomegaly Extremities: No peripheral edema, no signs of gross trauma or deformity. Active full range of motion of all extremities. Neuro: Cranial nerves II through XII intact, no focal neurological deficits. Skin: Clean dry and intact with no rash, purpura, petechiae, vesicles or pustules. Patient has erythema, abscess formation to the superior vagina. This is not internal. This is external. There is some surrounding cellulitis Backs/flank: No CVA tenderness, no midline spinal tenderness, no deformity. Psych: Normal mood and affect. No SI, HI or acute psychosis. Const Vital Signs: 10/21/23 13:49 Temperature 98.2 F Temperature Source Temporal Pulse Rate 102 H Respiratory Rate 16 Blood Pressure 157/96 H Blood Pressure Mean 116 Pulse Ox 100 Oxygen Delivery Method Room Air Physical Exam Const Vital Signs: 10/21/23 13:49 Temperature 98.2 F Temperature Source Temporal Pulse Rate 102 H Respiratory Rate 16 Blood Pressure 157/96 H Blood Pressure Mean 116 Pulse Ox 100 Oxygen Delivery Method Room Air MDM MDM Treatment and Re-Evaluation :: Differential diagnosis includes however is not limited to: Abscess formation, folliculitis, All's gangrene, cellulitis Patient appears to be in no obvious respiratory distress, patient's vital signs are stable. Patient presents to the emergency department with abscess formation to the suprapubic area. There is a small area of redness, this could benefit from an I D. Female nurse Yoselin was my repairer evaporator. I was able anesthetize the ar (more content not included)... Normal [facility] STREP A MOLECULAR (POC)on Procedural Control Valid [facility] Strep A (POCT) Negative Negative [facility] Emergency Department Summary on 03-31-2023 Emergency Department Summary [facility] Medical Records Department [address] [place] [address] Emergency Department Summary 03/31/23 MR#: [id number] Acct: [id number] Name: LAWANDA JONAS Rep #: [id number] : 1985 37 From: Keli OCHOA PCP: Dr. Zakia Nunez, DO Status:DEP ER Location: ED [facility] History of Present Illness Chief Complaint: Headache Narrative Narrative: 37-year-old female developed a slight right frontal headache this morning that worsened about noon. She has light sensitivity and nausea but no vomiting. It feels similar to her prior migraines. She has no visual changes or focal motor or sensory changes. She reports having normal CT brain scan several years ago. Years ago she was prescribed Zomig which helped. PFSH PFSH Medical History Cancer Smoker Home Medications NK 10/04/20 [History Last Taken Unknown] acetaminophen 325 mg tablet (Tylenol) 650 mg (2 x 325 mg) PO Q4H PRN PRN Pain 1-10 Or Fever #0 tabs 10/04/20 [Rx Last Taken Unknown] oxycodone 5 mg tablet 5 - 10 mg (1 - 2 x 5 mg) PO Q4H PRN PRN Pain Score 4-10 5 days #30 tabs 10/04/20 [Rx Last Taken Unknown] Allergy/AdvReac Type Severity Reaction Status Date / Time No Known Allergies Allergy Verified 03/31/23 13:46 Surgical History History of partial hysterectomy Social History Smoking Status: Current every day smoker tobacco type: cigarettes ROS ROS ED ROS Narrative Constitutional: Negative for fever, chills, malaise. Eyes: Negative for visual change. GI: Positive for nausea, negative for vomiting. Neuro: Positive for headache, negative for motor/sensory dysfunction. EXAM Physical Exam Narrative Exam Narrative: CONST: Patient sitting in no acute distress in dark room. EYES: Normal inspection. PERRLA, EOMI. ENT: Normal inspection, moist mucous membranes. NECK: Normal inspection. No meningismus. RESP: No respiratory distress, CTAB. CVS: Regular rate and rhythm, no murmur, no gallop. SKIN: Color normal, no rash, warm, dry, intact. EXTREMITIES: Normal appearance, no pedal edema. NEURO: Oriented x4. 5/5 upper and lower extremity strength, normal finger-nose bilaterally, normal gait. PSYCH: Normal affect. Const Vital Signs: 03/31/23 13:45 03/31/23 14:17 Temperature 97 F L Temperature Source Temporal Pulse Rate 90 81 Respiratory Rate 18 Blood Pressure 182/112 H 148/94 H Blood Pressure Mean 135 112 Pulse Ox 98 Oxygen Delivery Method Room Air Physical Exam Const Vital Signs: 03/31/23 13:45 03/31/23 14:17 Temperature 97 F L Temperature Source Temporal Pulse Rate 90 81 Respiratory Rate 18 Blood Pressure 182/112 H 148/94 H Blood Pressure Mean 135 112 Pulse Ox 98 Oxygen Delivery Method Room Air MDM MDM MDM Narrative Medical decision making narrative: Patient has gradual onset right frontal headache that feels like her typical migraine with light sensitivity and nausea. She appears well and nontoxic. Initially BP was 182/112 with otherwise normal vital signs. She is neurologically intact. She was treated with IV fluids, Toradol, Compazine, Benadryl, and sumatriptan and feels significantly improved. BP is 148/94. She is comfortable and was discharged home in stable condition. Test considered but not ordered: CT brain not indicated since she is neurologically intact, headache similar to previous, normal CT brain in [facility] Treatment and Re-Evaluation :: I have personally performed a face to face assessment of the patient and have reviewed the ETIENNE Note. I performed a substantive portion of the visit including all aspects of the following. My gonzalez findings include: History: Presents with what she describes as a migraine headache. She states that Wednesday night she ate some food that was bad. This caused some nausea and vomiting into Wednesday. She is not vomiting anymore. She was getting better from that. When she had that she had no headache at all. When she woke up this morning she had a mild headache. She gets headaches and not uncommonly but migraines just intermittently. She states the headache was mild this morning. About an hour ago it started to turn into a migraine. It is unilateral on the right side. There is photophobia. No numbness tingling weakness or visual change. This is typical for her headaches. This is not the worst she has had and there is certainly not thunderclap onset. No fevers in any times. She states the last day she really has not ate or drank a lot because of the prior complaint not due to the headache. Exam: She is awake alert. She does have photophobia on exam. But no rash. Negative Salvador sign. No visual change other than the (more content not included)... Normal [facility] 01-21-2023 FSH 57.1 mIU/mL Normal [facility] ([place]) Comment on above: Result Comment: Adul t Female FSH Reference Ranges (04/23/99): Follicular phase 2.5 - 10.2 mIU/mL Midcycle phase 3.4 - 33.4 mIU/mL Luteal phase 1.5 - 9.1 mIU/mL Post menopausal 23.0 -116.3 mIU/mL Adult Male: 1.4 - 18.1 mIU/mL Performed By: #### V IDH, CMP, GFR, FT4, TSH, ANEU, A1C, FSH, CBC, LH, ADIFF #### [place] [address] #### HCV1 #### [facility] [address], [place] [address] HCVon 01-21-2023 Hep C Ab Non-Reactive Normal Non-Reactive [facility] ([place]) Comment on above: Performed By: #### V IDH, CMP, GFR, FT4, TSH, ANEU, A1C, FSH, CBC, LH, ADIFF #### [place] [address] #### HCV1 #### [facility] [address], [place] [address] Hep C Ab Int Normal [facility] ([place]) Comment on above: Result Comment: Nonr eactive: Samples with a value < 0.80 are considered nonreactive (negative) for antibodies to HCV. A negative test result does not exclude the possibility of exposure to or infection with HCV. HCV antibodies may be undetectable in some stages of the infection and in some clinical conditions. See Interp Performed By: #### V IDH, CMP, GFR, FT4, TSH, ANEU, A1C, FSH, CBC, LH, ADIFF #### [place] [address] #### HCV1 #### [facility] [address], [place] [address] LHon 01-21-2023 LH 53.2 mIU/mL Normal [facility] ([place]) Comment on above: Result Comment: No te - New Reference Range in effect 19 Adult Female LH Reference Ranges: Follicular phase 1.9 - 12.5 mIU/mL Midcycle phase 8.7 - 76.3 mIU/mL Luteal phase 0.5 - 16.9 mIU/mL Post menopausal 5.0 - 55.2 mIU/mL Performed By: #### V IDH, CMP, GFR, FT4, TSH, ANEU, A1C, FSH, CBC, LH, ADIFF #### [place] [address] #### HCV1 #### [facility] [address], [place] [address] .Auto Diffon 01-20-2023 Basophil, Absolute 0.1 10 3/mcL Normal 0.0-0.2 [facility] ([place]) Comment on above: Performed By: #### V IDH, CMP, GFR, FT4, TSH, ANEU, A1C, FSH, CBC, LH, ADIFF #### [place] [address] #### HCV1 #### [facility] [address], [place] [address] Basophils/100 WBC (Bld) 1.2 % Normal 0.0-2.5 [facility] ([place]) Comment on above: Performed By: #### V IDH, CMP, GFR, FT4, TSH, ANEU, A1C, FSH, CBC, LH, ADIFF #### [place] [address] #### HCV1 #### [facility] [address], [place] [address] Eosinophil, Absolute 0.2 10 3/mcL Normal 0.0-0.4 [facility] ([place]) Comment on above: Performed By: #### V IDH, CMP, GFR, FT4, TSH, ANEU, A1C, FSH, CBC, LH, ADIFF #### [place] [address] #### HCV1 #### [facility] [address], [place] [address] Eosinophils/100 WBC (Bld) 2.5 % Normal 0.0-7.0 [facility] ([place]) Comment on above: Performed By: #### V IDH, CMP, GFR, FT4, TSH, ANEU, A1C, FSH, CBC, LH, ADIFF #### [place] [address] #### HCV1 #### [facility] [address], [place] [address] Lymphocyte, Absolute 3.4 10 3/mcL Normal 0.8-3.9 [facility] ([place]) Comment on above: Performed By: #### V IDH, CMP, GFR, FT4, TSH, ANEU, A1C, FSH, CBC, LH, ADIFF #### [place] [address] #### HCV1 #### [facility] [address], [place] [address] Lymphocytes/100 WBC (Bld) 35.3 % Normal 10.0-50.0 [facility] ([place]) Comment on above: Performed By: #### V IDH, CMP, GFR, FT4, TSH, ANEU, A1C, FSH, CBC, LH, ADIFF #### [place] [address] #### HCV1 #### [facility] [address], [place] [address] Monocyte, Absolute 0.4 10 3/mcL Normal 0.2-1.0 [facility] ([place]) Comment on above: Performed By: #### V IDH, CMP, GFR, FT4, TSH, ANEU, A1C, FSH, CBC, LH, ADIFF #### [place] [address] #### HCV1 #### [facility] [address], [place] [address] Monocytes/100 WBC (Bld) 4.4 % Normal 1.7-13.0 [facility] ([place]) Comment on above: Performed By: #### V IDH, CMP, GFR, FT4, TSH, ANEU, A1C, FSH, CBC, LH, ADIFF #### [address] [address] #### HCV1 #### [facility] [address], [place] [address] Neutrophils/100 WBC (Bld) 56.6 % Normal 37.0-80.0 [facility] ([place]) Comment on above: Performed By: #### V IDH, CMP, GFR, FT4, TSH, ANEU, A1C, FSH, CBC, LH, ADIFF #### [address] [address] #### HCV1 #### [facility] [address], [place] [address] .GFRon 01-20-2023 GFR Non- 77 ml/min/1.73sqm Normal [facility] ([place]) Comment on above: Result Comment: GFR Population mean for , Non- Americans Ages 20-29 = 116 mL/min/1.73 sq.m. Ages 30-39 = 107 mL/min/1.73 sq.m. Ages 40-49 = 99 mL/min/1.73 sq.m. Ages 50-59 = 93 mL/min/1.73 sq.m. Ages 60-69 = 85 mL/min/1.73 sq.m. Ages 70+ = 75 mL/min/1.73 sq.m. Chronic Kidney Disease: Less than 60 mL/min/1.73 square meters End Stage Renal Disease: Less than 15 mL/min/1.73 square meters Performed By: #### V IDH, CMP, GFR, FT4, TSH, ANEU, A1C, FSH, CBC, LH, ADIFF #### [address] [address] #### HCV1 #### [facility] [address], [place] [address] GFR 94 ml/min/1.73sqm Normal [facility] ([place]) Comment on above: Result Comment: GFR Population mean for , Non- Americans Ages 20-29 = 116 mL/min/1.73 sq.m. Ages 30-39 = 107 mL/min/1.73 sq.m. Ages 40-49 = 99 mL/min/1.73 sq.m. Ages 50-59 = 93 mL/min/1.73 sq.m. Ages 60-69 = 85 mL/min/1.73 sq.m. Ages 70+ = 75 mL/min/1.73 sq.m. Chronic Kidney Disease: Less than 60 mL/min/1.73 square meters End Stage Renal Disease: Less than 15 mL/min/1.73 square meters Performed By: #### V IDH, CMP, GFR, FT4, TSH, ANEU, A1C, FSH, CBC, LH, ADIFF #### [place] [address] #### HCV1 #### [facility] [address], [place] [address] .NEUABSon 01-20-2023 Neutrophil, Absolute 5.5 10 3/mcL Normal 2.9-6.2 [facility] ([place]) Comment on above: Performed By: #### V IDH, CMP, GFR, FT4, TSH, ANEU, A1C, FSH, CBC, LH, ADIFF #### [place] [address] #### HCV1 #### [facility] [address], [place] [address] A1Con 01-20-2023 HbA1c (Bld) [Mass fraction] 5.4 % Normal 4.3-6.4 [facility] ([place]) Comment on above: Performed By: #### V IDH, CMP, GFR, FT4, TSH, ANEU, A1C, FSH, CBC, LH, ADIFF #### [place] [address] #### HCV1 #### [facility] [address], [place] [address] CBCon 01-20-2023 Erythrocyte distribution width (RBC) [Ratio] 13.2 % Normal 11.5-14.5 [facility] ([place]) Comment on above: Performed By: #### V IDH, CMP, GFR, FT4, TSH, ANEU, A1C, FSH, CBC, LH, ADIFF #### [place] [address] #### HCV1 #### [facility] [address], [place] [address] Hematocrit (Bld) [Volume fraction] 46.2 % Normal 37.0-47.0 [facility] ([place]) Comment on above: Performed By: #### V IDH, CMP, GFR, FT4, TSH, ANEU, A1C, FSH, CBC, LH, ADIFF #### [place] [address] #### HCV1 #### [facility] [address], [place] [address] Hgb 15.5 G/dL Normal 12.0-16.0 [facility] ([place]) Comment on above: Performed By: #### V IDH, CMP, GFR, FT4, TSH, ANEU, A1C, FSH, CBC, LH, ADIFF #### [place] [address] #### HCV1 #### [facility] [address], [place] [address] MCH (RBC) [Entitic mass] 30.3 pg Normal 27.0-31.2 [facility] ([place]) Comment on above: Performed By: #### V IDH, CMP, GFR, FT4, TSH, ANEU, A1C, FSH, CBC, LH, ADIFF #### [place] [address] #### HCV1 #### [facility] [address], [place] [address] MCHC 33.6 G/dL Normal 33.0-37.0 [facility] ([place]) Comment on above: Performed By: #### V IDH, CMP, GFR, FT4, TSH, ANEU, A1C, FSH, CBC, LH, ADIFF #### [place] [address] #### HCV1 #### [facility] [address], [place] [address] MCV (RBC) [Entitic vol] 90.0 fL Normal 80.0-94.0 [facility] ([place]) Comment on above: Performed By: #### V IDH, CMP, GFR, FT4, TSH, ANEU, A1C, FSH, CBC, LH, ADIFF #### [place] [address] #### HCV1 #### [facility] [address], [place] [address] Platelet 225 10 3/mcL Normal 130-400 [facility] ([place]) Comment on above: Performed By: #### V IDH, CMP, GFR, FT4, TSH, ANEU, A1C, FSH, CBC, LH, ADIFF #### [place] [address] #### HCV1 #### [facility] [address], [place] [address] Platelet mean volume (Bld) [Entitic vol] 8.4 fL Normal 7.4-10.4 [facility] ([place]) Comment on above: Performed By: #### V IDH, CMP, GFR, FT4, TSH, ANEU, A1C, FSH, CBC, LH, ADIFF #### [place] [address] #### HCV1 #### [facility] [address], [place] [address] RBC 5.13 10 6/mcL Normal 4.20-5.40 [facility] ([place]) Comment on above: Performed By: #### V IDH, CMP, GFR, FT4, TSH, ANEU, A1C, FSH, CBC, LH, ADIFF #### [place] [address] #### HCV1 #### [facility] [address], [place] [address] WBC 9.7 10 3/mcL Normal 4.6-10.8 [facility] ([place]) Comment on above: Performed By: #### V IDH, CMP, GFR, FT4, TSH, ANEU, A1C, FSH, CBC, LH, ADIFF #### [place] [address] #### HCV1 #### [facility] [address], [place] [address] CMPon 01-20-2023 Albumin Level 4.3 G/dL Normal 3.5-5.0 [facility] ([place]) Comment on above: Performed By: #### V IDH, CMP, GFR, FT4, TSH, ANEU, A1C, FSH, CBC, LH, ADIFF #### [place] [address] #### HCV1 #### [facility] [address], [place] [address] Albumin/Globulin [Mass ratio] 1.3 {ratio} Normal 1.1-2.5 [facility] ([place]) Comment on above: Performed By: #### V IDH, CMP, GFR, FT4, TSH, ANEU, A1C, FSH, CBC, LH, ADIFF #### [place] [address] #### HCV1 #### [facility] [address], [place] [address] ALP [Catalytic activity/Vol] 89 U/L Normal 40-135 [facility] ([place]) Comment on above: Performed By: #### V IDH, CMP, GFR, FT4, TSH, ANEU, A1C, FSH, CBC, LH, ADIFF #### [place] [address] #### HCV1 #### [facility] [address], [place] [address] ALT [Catalytic activity/Vol] 23 U/L Normal 14-59 [facility] ([place]) Comment on above: Performed By: #### V IDH, CMP, GFR, FT4, TSH, ANEU, A1C, FSH, CBC, LH, ADIFF #### [place] [address] #### HCV1 #### [facility] [address], [place] [address] AST [Catalytic activity/Vol] 18 U/L Normal 10-40 [facility] ([place]) Comment on above: Performed By: #### V IDH, CMP, GFR, FT4, TSH, ANEU, A1C, FSH, CBC, LH, ADIFF #### [place] [address] #### HCV1 #### [facility] [address], [place] [address] Bili Total 0.3 mg/dL Normal 0.2-1.0 [facility] ([place]) Comment on above: Result Comment: Use of this assay is not recommended for patients undergoing treatment with eltrombopag due to the potential for falsely elevated results. Performed By: #### V IDH, CMP, GFR, FT4, TSH, ANEU, A1C, FSH, CBC, LH, ADIFF #### [place] [address] #### HCV1 #### [facility] [address] [place] [address] BUN/Creatinine Ratio 15 ratio Normal 7-27 [facility] ([place]) Comment on above: Performed By: #### V IDH, CMP, GFR, FT4, TSH, ANEU, A1C, FSH, CBC, LH, ADIFF #### [place] [address] #### HCV1 #### [facility] [address], [place] [address] Calcium [Mass/Vol] 9.0 mg/dL Normal 8.4-10.2 [facility] ([place]) Comment on above: Performed By: #### V IDH, CMP, GFR, FT4, TSH, ANEU, A1C, FSH, CBC, LH, ADIFF #### [place] [address] #### HCV1 #### [facility] [address], [place] [address] Chloride [Moles/Vol] 102 mmol/L Normal 98-107 [facility] ([place]) Comment on above: Performed By: #### V IDH, CMP, GFR, FT4, TSH, ANEU, A1C, FSH, CBC, LH, ADIFF #### [place] [address] #### HCV1 #### [facility] [address], [place] [address] CO2 [Moles/Vol] 29 mmol/L Normal 22-29 [facility] ([place]) Comment on above: Performed By: #### V IDH, CMP, GFR, FT4, TSH, ANEU, A1C, FSH, CBC, LH, ADIFF #### [place] [address] #### HCV1 #### [facility] [address], [place] [address] Creatinine [Mass/Vol] 0.84 mg/dL Normal 0.55-1.02 [facility] ([place]) Comment on above: Performed By: #### V IDH, CMP, GFR, FT4, TSH, ANEU, A1C, FSH, CBC, LH, ADIFF #### [place] [address] #### HCV1 #### [facility] [address], [place] [address] Electrolyte Balance 6.0 mEq/L Normal 4.0-15.0 [facility] ([place]) Comment on above: Performed By: #### V IDH, CMP, GFR, FT4, TSH, ANEU, A1C, FSH, CBC, LH, ADIFF #### [place] [address] #### HCV1 #### [facility] [address], [place] [address] Globulin 3.3 G/dL Normal [facility] ([place]) Comment on above: Performed By: #### V IDH, CMP, GFR, FT4, TSH, ANEU, A1C, FSH, CBC, LH, ADIFF #### [place] [address] #### HCV1 #### [facility] [address], [place] [address] Glucose [Mass/Vol] 88 mg/dL Normal 70-105 [facility] ([place]) Comment on above: Performed By: #### V IDH, CMP, GFR, FT4, TSH, ANEU, A1C, FSH, CBC, LH, ADIFF #### [place] [address] #### HCV1 #### [facility] [address], [place] [address] Potassium [Moles/Vol] 4.8 mmol/L Normal 3.5-5.1 [facility] ([place]) Comment on above: Performed By: #### V IDH, CMP, GFR, FT4, TSH, ANEU, A1C, FSH, CBC, LH, ADIFF #### [place] [address] #### HCV1 #### [facility] [address], [place] [address] Sodium [Moles/Vol] 137 mmol/L Normal 136-145 [facility] ([place]) Comment on above: Performed By: #### V IDH, CMP, GFR, FT4, TSH, ANEU, A1C, FSH, CBC, LH, ADIFF #### [place] [address] #### HCV1 #### [facility] [address], [place] [address] Total Protein 7.6 G/dL Normal 6.4-8.2 [facility] ([place]) Comment on above: Performed By: #### V IDH, CMP, GFR, FT4, TSH, ANEU, A1C, FSH, CBC, LH, ADIFF #### [place] [address] #### HCV1 #### [facility] [address], [place] [address] Urea nitrogen [Mass/Vol] 13 mg/dL Normal 7-18 [facility] ([place]) Comment on above: Performed By: #### V IDH, CMP, GFR, FT4, TSH, ANEU, A1C, FSH, CBC, LH, ADIFF #### [place] [address] #### HCV1 #### [facility] [address], [place] [address] FT4on 08-23-2023 Free T4 [Mass/Vol] 0.86 ng/dL Normal 0.76-1.46 [facility] ([place]) Comment on above: Performed By: #### V IDH, CMP, GFR, FT4, TSH, ANEU, A1C, FSH, CBC, LH, ADIFF #### [place] [address] #### HCV1 #### [facility] [address], [place] [address] TSHon 01-20-2023 TSH Qn 1.86 m[IU]/L Normal 0.36-3.74 [facility] ([place]) Comment on above: Performed By: #### V IDH, CMP, GFR, FT4, TSH, ANEU, A1C, FSH, CBC, LH, ADIFF #### [place] [address] #### HCV1 #### [facility] [address], [place] [address] VIDHon 01-20-2023 Vit. D 25-Hydroxy 22.8 ng/mL Normal [facility] ([place]) Comment on above: Result Comment: Inte rpretive Values Based on Total 25(OH) Vitamin D: Deficient <20 ng/mL Insufficient 20 - <30 ng/mL Sufficient 30-100 ng/mL Performed By: #### V IDH, CMP, GFR, FT4, TSH, ANEU, A1C, FSH, CBC, LH, ADIFF #### [place] [address] #### HCV1 #### [facility] [address], [place] [address] Office Visit Reporton 2022 Office Visit Report [facility] [address] [place] [address] OFFICE VISIT Date of Service: 12/15/22 MR#: [id number] Acct: [id number] Patient: LAWANDA JONAS Rep #: [id number] : 1985 Provider: GABRIELA Mendoza Age/Sex: 37/F Location: [facility] Status: Signed Intake Vital Signs 10/04/20 03:23 Height 5 ft 3 in Intake Visit Reasons: COVID TEST/WILLBURT Chief Complaint: appendicitis Allergies No Known Allergies Allergy (Verified 10/03/20 19:26) Results POC Cepheid LOIS Cov-2 PCR EMP POC Cepheid LOIS Cov-2 PCR EMP Not Detected Last Edit by Roseann Hernandez on 12/15/22 14:04 12/29/22 0640 Date [place] Signature: Date (if applicable) CC: Normal [facility] STREP A MOLECULAR (POC)on Procedural Control Valid [facility] Strep A (POCT) Negative Negative [facility] XR CHEST 2V FRONTAL/LATon [facility] XR Chest PA and Lateralon IMPRESSION: No acute radiographic abnormality. Book Store Associate: PSCB Transcribe Date/Time: Dec 17 2022 12:52P Dictated by : RADHA PEGUERO MD This examination was interpreted and the report reviewed and electronically signed by: RADHA PEGUERO MD on Dec 17 2022 12:53PM [facility] DIVISION OF RADIOLOGY * * *Final Report* * * DATE OF EXAM: Dec 17 2022 12:47PM WOX [id number] - XR CHEST 2V FRONTAL/LAT / PROCEDURE REASON: Fever, unspecified fever cause * * * * Physician Interpretation * * * * EXAMINATION: CHEST RADIOGRAPH (2 VIEW FRONTAL & LATERAL) CLINICAL HISTORY: Fever, unspecified fever cause MQ: XC2_6 EXAM DATE/TIME: 12/17/2022 12:47 PM COMPARISON: No relevant prior studies available. RESULT: Lines, tubes, and devices: None. Lungs and pleura: No consolidation. No lung mass. No pleural effusion. No pneumothorax. Cardiomediastinal silhouette: Normal cardiomediastinal silhouette. Bones and soft tissues: Unremarkable. DIVISION OF RADIOLOGY Provider, Isaias Almonte [facility] - 12/17/2022 * * *Final Report* * * DATE OF EXAM: Dec 17 2022 12:47PM WOX 5291 - XR CHEST 2V FRONTAL/LAT / PROCEDURE REASON: Fever, unspecified fever cause * * * * Physician Interpretation * * * * EXAMINATION: CHEST RADIOGRAPH (2 VIEW FRONTAL & LATERAL) CLINICAL HISTORY: Fever, unspecified fever cause MQ: XC2_6 EXAM DATE/TIME: 12/17/2022 12:47 PM COMPARISON: No relevant prior studies available. RESULT: Lines, tubes, and devices: None. Lungs and pleura: No consolidation. No lung mass. No pleural effusion. No pneumothorax. Cardiomediastinal silhouette: Normal cardiomediastinal silhouette. Bones and soft tissues: Unremarkable. IMPRESSION IMPRESSION: No acute radiographic abnormality. Book Store Associate: PSCGloria Transcribe Date/Time: Dec 17 2022 12:52P Dictated by : RADHA PEGUERO MD This examination was interpreted and the report reviewed and electronically signed by: RADHA PEGUERO MD on Dec 17 2022 12:53PM EST [facility] Radiology Study observation (narrative) [facility] XR Chest PA and LateralOrder ed By: Ccf Provider on 12-17-2022 [facility] Laboratory - Microbiology an d Antimicrobial susceptibilityon 12-15-2022 SARS-CoV-2 (COVID-19) RNA MELANIA+probe Ql (Unsp spec) Not detected [facility] CT ABDOMEN PELVIS W CONTRAST on 05-13-2022 CT ABDOMEN PELVIS W CONTRAST Patient Name: LAWANDA JONAS Exam Date/Time: 05/13/2022 20:56 Procedure: CT ABDOMEN PELVIS W CONTRAST Ordering Provider: FINN KATHRYN Reason For Exam: Indication: Right upper quadrant abdominal pain. Nausea vomiting. FINDINGS: Enhanced abdomen and pelvis performed with 75 mL Isovue-370. Lung bases show no major volume loss. Mild groundglass densities in both lung bases. No effusion. Within the abdomen, no free air. Bowel pattern appears nonobstructive. Thickened appearing stomach wall. Minimal free fluid. Peripherally enhancing irregular cystic appearing structure 2.8 cm may be left adnexal. Appendix not definitely seen. No definite diverticulitis or focal bowel inflammation. Limited by lack of oral contrast. Negative gallbladder liver pancreas spleen kidneys adrenal glands urinary bladder for active disease. Tiny nonobstructing right renal calculus. No gallstones. No spinal compression. Degenerative changes lumbar spine especially L5-S1. IMPRESSION: Thickened appearing stomach wall. Consider gastritis. Some free fluid noted. Left ovarian cystic structure with peripheral enhancement may be related. The etiology of the symptoms is not certain. Nonspecific mild groundglass densities in both lung bases. Tiny nonobstructing right renal calculus noted. Degenerative changes of the spine. No convincing free air bowel obstruction or bowel inflammation seen. Limited by lack of oral contrast. Report Dictated on Electronically Signed By: Christo Yuan Electronically Signed Date/Time: 05/13/2022 9:04 PM EST Normal [facility] ED Nursing Noteon 05-13-2022 ED Nursing Note Patient provided a urine sample. Sent to lab. Lights turned down. Denies any further needs at this time. Will continue to monitor. Roseann Cordero RN 05/13/222115 Normal [facility] ED Nursing Note Patient returned fro m CT scan, A&Ox4, respirations even and non-labored, and does not appear to be in any acute distress. Patient states that pain is not any better after being medicated. Patient ambulated to bathroom without any difficulty to attempt to provide a urine sample. Roseann Cordero RN 05/13/222108 Normal [facility] ED Nursing Note Patient ambulates to room 4 without any difficulty. Presents to ED with complaints RUQ pain that started Wednesday night/Wednesday morning. She states that she has had some indigestion and nausea. Denies fevers, chills, vomiting, diarrhea, dysuria, hematuria, and urinary urgency. Patient states that the pain is stabbing and radiates to the right side. Noticed that the pain increased after eating a meal. States she has been able to keep down fluids but has not had much of an appetite. Normal [facility] ED Provider Noteon ED Provider Note [facility] ED EMERGENCY DEPARTMENT ENCOUNTER Pt Name: Lawanda Jonas Birthdate 1985 Date of evaluation: 05/13/2022 Provider: Lina Finn DO CHIEF COMPLAINT Chief Complaint Patient presents with Abdominal Pain Nausea HISTORY OF PRESENT ILLNESS (Location/Symptom, Timing/Onset, Context/Setting, Quality, Duration, Modifying Factors, Severity) Note limiting factors. I wore a N-95 mask for the entirety of this encounter. Lawanda Jonas is a 36 y.o. female medical history of dysfunctional uterine bleeding status post hysterectomy who presents to the emergency department with complaint of constant waxing/waning dull aching right upper quadrant abdominal pain radiating around into her right subscapular region with intermittent sharp twinges for last 2 to 3 days. Currently rates pain 5-6 out of 10. Intermittent nausea without emesis. Denies constipation or diarrhea. Endorsing urinary frequency without urgency or dysuria. No longer has menstrual periods due to history of hysterectomy. Denies fevers. No known history of gallbladder pathology. No known family history of gallbladder pathology however limited family history as mother adopted and knows very little about father's history. Nursing Notes were reviewed. REVIEW OF SYSTEMS (2+ for level 4; 10+ for level 5) Review of Systems Constitutional: Negative for chills and fever. HENT: Negative for ear pain and sore throat. Eyes: Negative for pain and visual disturbance. Respiratory: Negative for cough and shortness of breath. Cardiovascular: Negative for chest pain and palpitations. Gastrointestinal: Positive for abdominal pain and nausea. Negative for vomiting. Genitourinary: Negative for dysuria and hematuria. Musculoskeletal: Negative for arthralgias and back pain. Skin: Negative for color change and rash. Neurological: Negative for seizures and syncope. All other systems reviewed and are negative. PAST MEDICAL HISTORY Past Medical History: Diagnosis Date Depression SURGICAL HISTORY Past Surgical History: Procedure Laterality Date HYSTERECTOMY WISDOM TOOTH EXTRACTION CURRENT MEDICATIONS Discharge Medication List as of 05/13/2022 9:55 PM CONTINUE these medications which have NOT CHANGED Details venlafaxine XR (Effexor XR) 75 MG 24 hr capsule Take 75 mg by mouth daily. Do not crush or chew., Historical Med ALLERGIES Patient has no known allergies. FAMILY HISTORY No family history on file. SOCIAL HISTORY Social History Socioeconomic History Marital status: Tobacco Use Smoking status: Every Day Packs/day: 1.00 Types: Cigarettes Substance and Sexual Activity Alcohol use: Not Currently Drug use: Yes Types: Marijuana SCREENINGS PHYSICAL EXAM (up to 7 for level 4, 8 or more for level 5) @EDTRIAGEVSS@ BP 113/80 Pulse 89 Temp 36.4 ?C (97.6 ?F) (Oral) Resp 16 Ht 1.6 m (5' 3) Wt 74.4 kg (164 lb) SpO2 98% BMI 29.05 kg/m? Constitutional: Alert, awake HENT: mucous membranes moist Eyes: no discharge, nonicteric Neck: neck supple, trachea midline Lungs: CTABL, no wheezing, no rales Heart: RRR , no murmurs, equal distal pulses to extremities, no peripheral edema/erythema/warmth of LEs b/l Vascular: radial 2/4 equal B/L Abdomen: Soft, no reproducible tenderness to palpation of abdomen, ND, no masses, no rebound/guarding, no peritoneal signs and +bs Extremities: normal peripheral perfusion Neuro: Alert and oriented, normal speech, URIBE, ambulates Skin: warm and dry Psych: cooperative, appropriate thought content and judgement Procedures DIAGNOSTIC RESULTS RADIOLOGY (Per Emergency Physician): CT A/P gastritis Interpretation per the Radiologist below, if available at the time of this note: CT A/P IMPRESSION: Thickened appearing stomach wall. Consider gastritis. Some free fluid noted. Left ovarian cystic structure with peripheral enhancement may be related. The etiology of the symptoms is not certain. Nonspecific mild groundglass densities in both lung bases. Tiny nonobstructing right renal calculus noted. Degenerative changes of the spine. No convincing free air bowel obstruction or bowel inflammation seen. Limited by lack of oral contrast. LABS: Labs Reviewed CBC WITH AUTO DIFFERENTIAL - Abnormal Result Value Auto WBC 7.7 RBC 4.84 Hemoglobin 14.8 Hematocrit 43.2 MCV 89.3 MCH 30.6 MCHC 34.3 RDW 12.8 Platelets 198 MPV 10.1 Neutrophils Relative 48.8 Lymphocytes Relative 40.6 (*) Monocytes Relative 7.5 Eosinophils Relative 2.5 Basophils Relative 0.3 Immature Grans % 0.3 (*) Neutrophils Absolute 3.8 Lymphocytes Absolute 3.1 Monocytes Absolute 0.6 Eosinophils Absolute 0.2 Basophils Absolute 0.0 Immature Grans Absolute 0.0 COMPREHENSIVE METABOLIC PANEL - Abnormal SODIUM 135 POTASSIUM 3.9 CHLORIDE 106 CARBON DIOXIDE 26 ANION GAP 2 (*) UREA NITROGEN 12 CREATININE 0.66 GLUCOSE (more content not included)... Normal [facility] OR.OPRPTon 10-30-2020 Operative Report Normal [facility] OR.OPRPT [facility] Patient Name: LAWANDA JONAS NW Date of : [address], [place] [address] Unit Number: [id number] Operative Report Patient Status: REG [facility] Attending Doctor: Negro Wolfe DPM Service Date: 10/30/201813 Operative Report Procedure Date: 10/25/20 Attending Physician: Negro Wolfe DPM Procedure: Preoperative Diagnosis: Midfoot arthritis left foot, hallux valgus deformity left foot, pain left foot, chronic ingrowing toenail with dystrophy] Postoperative Diagnosis: [Same] Procedure Type: [Midfoot arthrodesis of multiple joints left foot, [place] bone graft large left calcaneus, permanent nail procedure left great toe lateral border] Anesthesia: [General with popliteal and abductor canal block.] Estimated Blood Loss: [Less than 30 cc] IV Fluids: [Per anesthesia] Urine Output: [] Complications: [None known] Findings/Specimens: [None] Procedure Details: [Patient is a well-known patient of mine at [facility] [place] she is a 35-year-old female who presents with having painful deformity of her left foot is also had a painful ingrown toenail of a very large dystrophic toenail. The patient's had problems for many months with a chronic ingrowing nail chronic pain deformity of her left foot. She is tried conservative methods without much relief recommend surgical intervention at this time. We tried shoe gear modifications, anti-inflammatories, padding without much relief she would like to undergo surgical intervention. She was seen in the preoperative holding area where her chart was reviewed and consent was signed the patient was discussed with the patient regarding all risks complications and benefits of the surgical procedure hand all questions were answered no guarantees given or implied. All questions were answered no guarantees given or implied.] Summary: [Procedure patient was seen in the preoperative holding area chart reviewed and consent was signed. Patient was then taken back to the operating placed on maternal supine position. Once general anesthetic was then obtained a local block of quarter percent Marcaine plain was injected at the left foot patient also had an abductor canal and popliteal block. Patient then was placed in the operating table in normal supine position. A tourniquet was placed about the left lower extremity in the left thigh. The left lower extremities and scrubbed prepped draped usual aseptic technique. Attention was then directed left foot where timeout was then performed tourniquet was placed about the left thigh it was then scrubbed prepped and draped in usual aseptic technique. Attention then directed to the left lower extremity at this point then the tourniquet was then inflated to 300 mils mercury actually 230 mm worker about the left foot at that point then once was inflated attention then directed left foot next a 3-1/2 cm leg enlarged incision was made overlying the dorsal aspect of the first met cuneiform joint incised down to including subcutaneous tissue with care being taken to identify and retract all vital and neurovascular structures all bleeders are cauterized and ligated sensory. Is carried out all of the first met cuneiform joint where the incision was then carried down to the periosteal incision overlying the first met cuneiform joint. The incision was deepened down to the joint surface the joint fibers and Sharpey's fibers were then all cleaned off the joint surface. Which at this point then the joint surface was then a sagittal saw was inserted into the first met cuneiform joint and cut completely. At the same time once it was then cut then the joint seeker and spacer was inserted into the lateral aspect of the first metatarsal along the base. A separate incision was made along the first met cuneiform joint and the first metatarsal phalangeal joint and a lateral lease was then performed the lateral release was then performed by cutting the fibular suspensory ligament and the sesamoid was then released to retract back underneath the first metatarsal deep transverse intermetatarsal ligament was then cut. An illogical lateral release was then performed. This wound was then flushed and closed with 4-0 and 3-0 nylon. At that point then attention was directed back to the first met cuneiform joint the joint seeker was then inserted the position was then inserted also on top of the first metatarsal and pushed over completely to reduce the IM angle. Once doing so then the sagittal saw was then placed on top using the cut guide. The pins were then obliquely positioned distally in oblique position and proximally in a straight up-and-down position. They were down to the plantar surface. Then once the positioner was applied to the outside of the foot pushed over at that point then the sagittal saw and the cut guide was then used to cut the joint surfaces. The pin (more content not included)... Normal [facility] FLUOROSCOPY IN OR/PAIN MGTon 10-25-2020 FLUOROSCOPY IN OR/PAIN MGT FLUOROSCOPY IN OR/PAIN MGT Ordering Physician: Negro Wolfe DPM 10/25/2020 11:30 AM FLUOROSCOPY AND RADIOGRAPHS UTILIZED IN THE OR Clinical Statement: Osteoarthritis left ankle and foot FINDINGS: 51 second fluoroscopy time utilized. Total of four radiographs were obtained during fusion with screw and plate fixation at the first tarsometatarsal joint with screw bridging the medial and middle cuneiforms. IMPRESSION: Documentation of fluoroscopy and radiographs utilized in the OR during left foot surgery ---- Electronic Signature on File ---- Signed By: Awais Beckett MD [email or web address] Dictated: 10/25/2020 1:49 PM Signed: 10/25/2020 1:50 PM Reported By: AWAIS BECKETT M.D. Signed By: AWAIS BECKETT M.D. Normal [facility] URINE PREGNANCYon 10-25-2020 Beta HCG ( test) Ql (U) Negative Normal NEGATIVE [facility] Comment on above: Order Comment: Julissa s: M Performed By: #### L [id number] #### [facility] [address] [place] [id number] UR SPEC GRAV 1.020 Normal 1.005-1.030 [facility] Comment on above: Order Comment: Julissa s: M Performed By: #### L [id number] #### [facility] [address] [place] [id number] Vital Signs Date Time Vital Sign Value Performing Clinician Facility 12-17-2024 10:51-0400 Body mass index (BMI) [Ratio] 27.92 kg/m2 Zakia Augustine MD Work Phone: [facility] 12-17-2024 10:51-0400 Body temperature 98.71 [degF] Zakia Augustine MD Work Phone: [facility] 12-17-2024 10:51-0400 Body weight 71.5 kg Zakia Augustine MD Work Phone: [facility] 12-17-2024 10:51-0400 Diastolic blood pressure 68 mm[Hg] Zakia Augustine MD Work Phone: [facility] 12-17-2024 10:51-0400 Heart rate 110 /min Zakia Augustine MD Work Phone: [facility] 12-17-2024 10:51-0400 Respiratory rate 16 /min Zakia Augustine MD Work Phone: [facility] 12-17-2024 10:51-0400 SaO2% (BldA) [Mass fraction] 99 % Zakia Augustine MD Work Phone: [facility] 12-17-2024 10:51-0400 Systolic blood pressure 118 mm[Hg] Zakia Augustine MD Work Phone: [facility] 12-03-2024 14:37-0400 Body mass index (BMI) [Ratio] 28.74 kg/m2 Reggie Swank HARVESTING MANAGER[employer] Work Phone: [facility] 12-03-2024 14:37-0400 Body temperature 98.8 [degF] Reggie Swank HARVESTING MANAGER[employer] Work Phone: [facility] 12-03-2024 14:37-0400 Body weight 73.6 kg Reggie Swank HARVESTING MANAGER[employer] Work Phone: [facility] 12-03-2024 14:37-0400 Diastolic blood pressure 95 mm[Hg] Reggie Swank HARVESTING MANAGER[employer] Work Phone: [facility] 12-03-2024 14:37-0400 Heart rate 94 /min Reggie Swank HARVESTING MANAGER[employer] Work Phone: [facility] 12-03-2024 14:37-0400 Respiratory rate 18 /min Reggie Swank HARVESTING MANAGER[employer] Work Phone: [facility] 12-03-2024 14:37-0400 SaO2% (BldA) [Mass fraction] 99 % Reggie Swank HARVESTING MANAGER[employer] Work Phone: [facility] 12-03-2024 14:37-0400 Systolic blood pressure 148 mm[Hg] Reggie Swank HARVESTING MANAGER.COOK FRY Work Phone: [facility] 10-04-2023 13:17-0400 Body mass index (BMI) [Ratio] 28.2 kg/m2 Frank Moomaw HARVESTING MANAGER.COOK [employer] Work Phone: [facility] 10-04-2023 13:17-0400 Body temperature 98.01 [degF] Frank Moomaw HARVESTING MANAGER.COOK [employer] Work Phone: [facility] 10-04-2023 13:17-0400 Body weight 72.2 kg Frank Moomaw HARVESTING MANAGER.COOK [employer] Work Phone: [facility] 10-04-2023 13:17-0400 Diastolic blood pressure 64 mm[Hg] Frank Moomaw HARVESTING MANAGER.COOK [employer] Work Phone: [facility] 10-04-2023 13:17-0400 Heart rate 66 /min Frank Moomaw HARVESTING MANAGER.COOK [employer] Work Phone: [facility] 10-04-2023 13:17-0400 Respiratory rate 16 /min Frank Moomaw HARVESTING MANAGER.COOK [employer] Work Phone: [facility] 10-04-2023 13:17-0400 SaO2% (BldA) [Mass fraction] 98 % Frank Moomaw HARVESTING MANAGER.COOK [employer] Work Phone: [facility] 10-04-2023 13:17-0400 Systolic blood pressure 120 mm[Hg] Frank Moomaw HARVESTING MANAGER.COOK [employer] Work Phone: [facility] 03-31-2023 14:17-0400 Diastolic blood pressure 94 mm[Hg] No Primary Care Physician [facility] 03-31-2023 14:17-0400 Heart rate 81 /min No Primary Care Physician [facility] 03-31-2023 14:17-0400 Systolic blood pressure 148 mm[Hg] No Primary Care Physician [facility] 03-31-2023 13:45-0400 Body height 160.02 cm No Primary Care Physician [facility] 03-31-2023 13:45-0400 Body mass index (BMI) [Ratio] 29.4 kg/m2 No Primary Care Physician [facility] 03-31-2023 13:45-0400 Body temperature 97 [degF] No Primary Care Physician [facility] 03-31-2023 13:45-0400 Body weight 75.29 kg No Primary Care Physician [facility] 03-31-2023 13:45-0400 Respiratory rate 18 /min No Primary Care Physician [facility] 03-31-2023 13:45-0400 SaO2% (BldA) [Mass fraction] 98 % No Primary Care Physician [facility] 12-17-2022 12:14-0400 Body temperature 98.91 [degF] Agnieszka Athy PA-C Work Phone: [facility] 12-17-2022 12:14-0400 Body weight 76.02 kg Agnieszka Athy PA-C Work Phone: [facility] 12-17-2022 12:14-0400 Diastolic blood pressure 86 mm[Hg] Agnieszka Athy PA-C Work Phone: [facility] 12-17-2022 12:14-0400 Heart rate 109 /min Agnieszka Athy PA-C Work Phone: [facility] 12-17-2022 12:14-0400 Respiratory rate 18 /min Agnieszka Athy PA-C Work Phone: [facility] 12-17-2022 12:14-0400 SaO2% (BldA) [Mass fraction] 98 % Agnieszka Athy PA-C Work Phone: [facility] 12-17-2022 12:14-0400 Systolic blood pressure 138 mm[Hg] Agnieszka Athy PA-C Work Phone: [facility] 09-22-2022 08:09-0400 Heart rate 88 /min [facility] Work Phone: [facility] 09-22-2022 07:59-0400 Body temperature 98.2 [degF] [facility] Work Phone: [facility] 09-22-2022 07:59-0400 Body weight 75.48 kg [facility] Work Phone: [facility] 09-22-2022 07:59-0400 Diastolic blood pressure 90 mm[Hg] [facility] Work Phone: [facility] 09-22-2022 07:59-0400 Respiratory rate 20 /min [facility] Work Phone: [facility] 09-22-2022 07:59-0400 SaO2% (BldA) [Mass fraction] 97 % [facility] Work Phone: [facility] 09-22-2022 07:59-0400 Systolic blood pressure 140 mm[Hg] [facility] Work Phone: [facility] 09-02-2020 02:40-0400 BMI (Body Mass Index) 27.46 kg/m2 Chris MCKAY Work Phone: 09-02-2020 02:40-0400 Body Temperature 98.49 [degF] Chris MCKAY Work Phone: 09-02-2020 02:40-0400 Body weight 70.31 kg Chris Dominique MCKAY Work Phone: 09-02-2020 02:40-0400 BP Diastolic 102 mm[Hg] Chris Dominique MCKAY Work Phone: 09-02-2020 02:40-0400 BP Systolic 159 mm[Hg] Chris Fox NELY Work Phone: 09-02-2020 02:40-0400 Height 160 cm Chris Fox NELY Work Phone: 09-02-2020 02:40-0400 Pulse (Heart Rate) 86 /min Chris Fox ARJax Work Phone: 09-02-2020 02:40-0400 Pulse Oximetry 99 % Chris MCKAY Work Phone: 09-02-2020 02:40-0400 Respiratory Rate 16 /min Chris MCKAY Work Phone: Encounters Encounter Date Encounter Type Care Provider Facility Start: 01-03-2025 End: 01-03-2025 ambulatory PATRICK GONG Facility:[facility] Start: 12-17-2024 End: 12-17-2024 Office outpatient visit 15 minutes Zakia Augustine MD Work Phone: [facility] Comment on above: Acute otitis media, left (Primary Dx) Start: 12-17-2024 End: 12-17-2024 ambulatory ZAKIA AUGUSTINE Facility:[facility] Start: 12-03-2024 Unlisted evaluation and management service Reggieabdullahi Schulzenrrique HARVESTING MANAGER.COOK [employer] Work Phone: [facility] Start: 12-03-2024 End: 12-03-2024 Patient encounter procedure Reggie Ashby HARVESTING MANAGER.COOK [employer]Y Work Phone: [facility] Comment on above: Paronychia of finger of right hand (Primary Dx) Start: 12-03-2024 End: 12-03-2024 ambulatory REGGIE ASHBY Facility:[facility] Start: 10-21-2023 End: 10-21-2023 Emergency department patient visit Jeffrey Stearns Facility:[facility] Start: 10-04-2023 End: 10-04-2023 Patient encounter procedure Frank Maldonadow HARVESTING MANAGER.COOK [employer]Y Work Phone: [facility] Comment on above: Sore throat (Primary Dx); Lymphadenopathy, cervical Start: 03-31-2023 End: 03-31-2023 Emergency department patient visit No Primary Care Physician [facility] Work Phone: Start: 01-20-2023 End: 01-25-2023 ambulatory ZAKIA NUNEZ DO Facility:B Start: 12-17-2022 Telephone encounter Agnieszka purvis PA-C Work Phone: [facility] Comment on above: Results Start: 12-17-2022 End: 12-17-2022 Subsequent hospital visit by physician [facility] Work Phone: Radiology Comment on above: Fever, unspecified f ever cause [R50.9] Start: 12-17-2022 End: 12-17-2022 Patient encounter procedure Agnieszka Hassan PA-C Work Phone: [facility] Comment on above: Acute URI (Primary D x); Fever, unspecified fever cause Start: 12-15-2022 End: 12-15-2022 Patient encounter procedure No Primary Care Physician [facility] Work Phone: Start: 12-15-2022 End: 12-15-2022 ambulatory Jose OCHOA Facility:[facility] Start: 09-22-2022 End: 09-22-2022 Office outpatient new 45 minutes [facility] Work Phone: [facility] Comment on above: Acute otitis media, left (Primary Dx); RAKESH (generalized anxiety disorder) Start: 05-13-2022 End: 05-14-2022 Emergency department patient visit [facility] Start: 05-13-2022 End: 05-14-2022 Emergency department patient visit [facility] Start: 09-02-2020 End: 09-02-2020 Emergency department patient visit Chris Fox Work Phone: [facility] Comment on above: Pain, dental (Primar y Dx); Dental caries Procedures Date Procedure Procedure Detail Performing Clinician Start: 12-03-2024 Unlisted px skin muc membrane & subq tissue Reggie Ashby APRN.COOK [employer] Work Phone: Start: 10-04-2023 STREP A MOLECULAR (POC) Keren Austin APRN.COOK [employer] Work Phone: Start: 12-17-2022 Radiologic exam ches t 2 views Agnieszka Hassan PA-C Work Phone: Start: 12-17-2022 STREP A MOLECULAR (POC) Keren Austin APRN.[employer]OOK [employer] Work Phone: Plan of Treatment Date Care Activity Detail Author Start: 01-29-2025 Influenza vaccination Influenza Vaccine (#1) [facility] Start: 01-30-2024 Covid-19 Vaccine ( season) Covid-19 Vaccine ( season) [facility] Start: 01-30-2024 Covid-19 Vaccine ( season) Covid-19 Vaccine () [facility] Start: 01-30-2024 Influenza vaccination [facility] Start: 05-31-2023 Behavioral Health Screening Behavioral Health Screening [facility] Start: 03-31-2023 [facility] Start: 01-29-2023 Covid-19 Vaccine ( season) Covid-19 Vaccine () [facility] Start: 01-29-2023 Influenza vaccination [facility] Start: 05-31-2022 DEPRESSION ASSESSMENT DEPRESSION ASSESSMENT [facility] Start: 01-29-2021 Influenza vaccination Flu vaccine (Season Ended) [facility] Work Phone: Start: 2017 HPV TESTING HPV TESTING [facility] Start: 2017 Screening for malignant neoplasm of cervix HPV Testing [facility] Start: 07-10-2015 PAP TESTING PAP TESTING [facility] Start: 07-10-2015 Screening for malignant neoplasm of cervix Pap Testing [facility] Start: 07-10-2013 Screening for malignant neoplasm of cervix Cervical Cancer Screening [facility] Start: 2006 Hepatitis B Vaccine (1 of 3 - 19+ 3-dose series) Hepatitis B Vaccine (1 of 3 - 19+ 3-dose series) [facility] Start: 2006 Pneumococcal vaccination Pneumococcal Vaccine (1 of 2 - PCV) [facility] Start: 2006 Urine microalbumin profile [facility] Start: 2005 Anxiety Screening Anxiety Screening [facility] Start: 2005 Depression Screening Depression Screening [facility] Start: 2005 HEPATITIS C SCREENING HEPATITIS C SCREENING [facility] Start: 2005 Hepatitis C screening Hepatitis C Screening [facility] Start: 2005 HIV SCREENING HIV SCREENING [facility] Start: 2005 HIV screening HIV Screening [facility] Start: 2003 COVID-19 Vaccine (1) COVID-19 Vaccine (1) [facility] Work Phone: Start: 1993 PNEUMOCOCCAL (1 - PCV) PNEUMOCOCCAL (1 - PCV) [facility] Start: 1993 Pneumococcal vaccination Pneumococcal Vaccine (1 of 2 - PCV) [facility] Start: 1987 COVID-19 VACCINE (#1) COVID-19 VACCINE (#1) [facility] Start: 1987 HEPATITIS B (1 of 3 - 3-dose series) HEPATITIS B (1 of 3 - 3-dose series) [facility] Patient Education ED, Migraine (Classical ) [facility] Work Phone: Patient referral [facility] Work Phone: Payers Date Payer Category Payer Medicaid [employer] [id number] 2024 Medicaid [id number] 2022 Self-pay 2022 Unknown [id number] 2022 Private Health Insurance [id number] 2013 Unknown [id number] 1987 Unknown [id number] Private Health Insurance [employer] [id number] Unknown ANTHEM [id number] Unknown [id number] Unknown [id number] Unknown [id number] Social History Date Type Detail Facility Start: 09-02-2020 End: 03-31-2023 Tobacco smoking status NHIS Unknown if ever smoked [facility] Start: 1985 Sex Assigned At Not on file [facility] Work Phone: Exposure to SARS-CoV -2 (event) Not sure [facility] Work Phone: Start: 09-22-2022 End: 12-03-2024 Tobacco smoking status NJIS Smokes tobacco daily [facility] History of tobacco use Cigarette Smoker C [facility] Start: 05-06-2020 End: 09-22-2022 Cigarettes smoked current (pack per day) - Reported 0.5 [facility] Start: 09-22-2022 End: 12-03-2024 Tobacco use and exposure Smokeless tobacco non-user [facility] Start: 09-22-2022 End: 12-03-2024 Alcohol intake Current drinker of alcohol (finding) [facility] Start: 08-26-2015 Alcohol Comment Occasionally [facility] Start: 05-06-2020 End: 12-17-2022 Tobacco use panel [facility] Work Phone: Start: 12-07-2019 None [facility] Start: 12-07-2019 With Family [facility] Start: 10-04-2020 Cigarettes [facility] Start: 1985 Sex Assigned At Female W [facility] National Score (1-10 0), lower number is lower risk Not on file [facility] Medical Equipment Procedure Code Equipment Code Equipment Origin al Text Equipment Identifier Dates Laparoscopy with vaginal hysterectomy LUTHER [id number] HEMOSTAT ABS FDA Start: 03-23-2019 Appendectomy, laparoscopic 45mm Standard Reload FDA Start: 10-04-2020 Functional Status Date Assessment Result Facility 12-10-2014 Are you deaf, or do you have serious difficulty hearing No 12/10/2014 7:45 AM EDT Sonia Sears MA No [facility] 12-10-2014 Are you blind, or do you have serious difficulty seeing, even when wearing glasses No 12/10/2014 7:45 AM EDT Sonia Sears MA No [facility] 12-10-2014 Do you have serious difficulty walking or climbing stairs No 12/10/2014 7:45 AM EDT Sonia Sears MA No [facility] 12-10-2014 Do you have difficul ty dressing or bathing No 12/10/2014 7:45 AM EDT Sonia Sears MA [facility] 12-10-2014 Because of a physica l, mental, or emotional condition, do you have difficulty doing errands alone such as visiting a physician's office or shopping No 12/10/2014 7:45 AM EDT Sonia Sears MA No [facility] Mental Status Date Assessment Result Facility 03-31-2023 Cognitive function Level Of Cons ciousness Awake;Alert;Appropriate;Fol lows Commands [facility] Work Phone: 12-10-2014 Because of a physica l, mental, or emotional condition, do you have serious difficulty concentrating, remembering, or making decisions No 12/10/2014 7:45 AM EDT Sonia Sears MA [facility] Clinical Notes 09-22-2022 to 01-03-2025 Zakia Augustine MD - 12/17/2024 11:06 AM EDTPatient Reggie Alfaro APRN.[employer]OOK [employer] - 12/03/2024 2:55 PM Frank Davis APRN.[employer]OOK [employer] - 10/04/2023 1:22 PM EDT Note Date & Type Note Facility 01-03-2025 Note SARS-COV-2 (AGENT OF COVID-19) RNA: Not detected INFLUENZA A RNA: Not detected INFLUENZA B RNA: Not detected RESPIRATORY SYNCYTIAL VIRUS (RSV) RNA: Not detected [facility] Comment on above: Performed By: #### [id number] #### [facility] CLIA [id number] [address] [place] [address] OF [facility] 01-03-2025 Note HNO ID: [id number] Author: FESTUS HENDERSON RT(R) Service: ? Author Type: Nitrocellulose Operator Type: Progress Notes Filed: 01/03/2025 16:25 Note Text: Radiology Service Progress Note PATIENT NAME: Lawanda Oliveira DATE OF SERVICE: January 03, 2025 TIME: 4:12 PM PATIENT IDENTITY VERIFICATION COMPLETED USING TWO (2) IDENTIFIERS: Name and Date of confirmed by patient verbally. FALL SCREENING: Has the patient had 2 falls in the last year or 1 fall with injury or currently using an Ambulatory Assistive Device (Walker, Cane, Wheelchair, Crutches, etc.)? No PATIENT GENDER DATA: Assigned female at . status: : No status: NO. PATIENT RELEVANT IMPLANT DATA REVIEWED: Yes PATIENT PRESENTS WITH AN IMPLANTABLE OR ATTACHED PROGRAM MANAGER ENVIRONMENTAL PLANNING: No RADIOLOGY DEPARTMENT: General X-ray: Exam(s) Completed: Chest X-Ray PERIPHERAL IV DATA: Not applicable SIGNED BY: RT Kong(R) January 03, 2025 4:12 PM [facility] 01-03-2025 Note HNO ID: [id number] Author: PATRICK GONG APRN.COOK FRY Service: ? Author Type: Nurse Practitioner Type: Progress Notes Filed: 01/03/2025 17:20 Note Text: [facility] Subjective HPI HPI Lawanda Oliveira is a 39 year old female who presents today for CC of cough, st, fever, h/a. This started 1 day ago. Has tried otc medication for relief. Symptoms are worsened by nothing. Risk factors smoker. Denies possibility of being . .Patient presents with: Allergic Reaction: Sore throat, congestion, MARKS, cough x 1 day PAST MEDICAL HISTORY Diagnosis Date Hearing loss IBS (irritable bowel syndrome) PAST SURGICAL HISTORY Procedure Laterality Date COLONOSCOPY FLX DX W/COLLJ SPEC WHEN PFRMD 3 to 4 years ago Colonoscopy ESOPHAGOGASTRODUODENOSCOPY TRANSORAL DIAGNOSTIC 3 to 4 years ago EGD EXTRACTION ERUPTED TOOTH/EXR September 2011 4 teeth. All at once. MYRINGOTOMY HX Tube R ear only. ALLERGIES Patient has no known allergies. MEDICATIONS venlafaxine XR (EFFEXOR XR) 225 mg tablet Take 1 tablet by mouth once daily. venlafaxine ER (EFFEXOR XR) 75 mg 24 hr capsule Take 150 mg by mouth once daily. (Patient not taking: Reported on 12/03/2024) LORazepam (ATIVAN) 0.5 mg Take by mouth three times daily as needed. (Patient not taking: Reported on 12/17/2024) benzonatate (TESSALON PERLE) 100 mg capsule Take 1 capsule by mouth three times daily as needed. (Patient not taking: Reported on 05/10/2019 ) albuterol HFA (PROVENTIL HFA, VENTOLIN HFA) 90 mcg/actuation inhaler Inhale 2 Puffs as instructed every 4 hours as needed. (Patient not taking: Reported on 05/10/2019 ) amitriptyline (ELAVIL) 25 mg tablet Take 25 mg by mouth daily at bedtime. (Patient not taking: Reported on 12/17/2022) albuterol HFA (PROAIR HFA) 90 mcg/actuation inhaler Inhale 2 Puffs as instructed every 4 hours as needed. (Patient not taking: Reported on 07/12/2018 ) triamcinolone (KENALOG) 0.025 % cream Apply 1 application to affected area twice daily. (Patient not taking: Reported on 07/12/2018 ) naproxen (NAPROSYN) 500 mg tablet Take 1 tablet by mouth twice daily with meals. (Patient not taking: Reported on 05/10/2019 ) FAMILY HISTORY Problem Relation Age of Onset Hearing Loss Father other (hirsutism [Other]) Mother other (Endometrosis [Other]) Mother Ovarian cysts Social History Tobacco Use Smoking status: Every Day Current packs/day: 0.50 Average packs/day: 0.5 packs/day for 6.0 years (3.0 ttl pk-yrs) Types: Cigarettes Smokeless tobacco: Never Substance Use Topics Alcohol use: Yes Comment: Occasionally Drug use: No Review of Systems Constitutional: Positive for fever. Negative for chills and fatigue. HENT: Positive for rhinorrhea and sore throat. Negative for ear discharge, ear pain, sinus pressure and sinus pain. Eyes: Negative for discharge and redness. Respiratory: Positive for cough. Negative for shortness of breath and wheezing. Cardiovascular: Negative for chest pain. Skin: Negative for rash. Neurological: Positive for headaches. Objective BP 118/78 Pulse 100 Temp 37.6 ?C (99.6 ?F) Resp 16 Wt 72.7 kg (160 lb 4.4 oz) LMP 08/21/2015 (Exact Date) SpO2 99% BMI 28.39 kg/m? Physical Exam Constitutional: General: She is not in acute distress. Appearance: She is not toxic-appearing or diaphoretic. HENT: Head: Normocephalic and atraumatic. Right Ear: Hearing and external ear normal. Left Ear: Hearing and external ear normal. Nose: Nose normal. Mouth/Throat: Lips: [place]. Mouth: Mucous membranes are moist. Pharynx: Uvula midline. Posterior oropharyngeal erythema present. Eyes: General: Lids are normal. No scleral icterus. Right eye: No discharge. Left eye: No discharge. Conjunctiva/sclera: Conjunctivae normal. Pupils: Pupils are equal, round, and reactive to light. Neck: Trachea: Trachea normal. Cardiovascular: Rate and Rhythm: Normal rate and regular rhythm. Heart sounds: Normal heart sounds. Pulmonary: Effort: Pulmonary effort is normal. Breath sounds: Examination of the right-lower field reveals wheezing and rhonchi. Wheezing and rhonchi present. No decreased breath sounds or rales. Musculoskeletal: Cervical back: Normal range of motion and neck supple. Lymphadenopathy: Cervical: No cervical adenopathy. Skin: Findings: No rash. Neurological: Mental Status: She is alert and oriented to person, place, and time. {ASSESSMENT/PLAN: 1. URI, acute - ICD9: 465.9, ICD10: J06.9 (primary diagnosis) - Discussed viral etiology and rationale for treatment. - Symptomatic treatment with prn analgesia - Supportive care with fluids and rest - Follow up in 3-5 days if symptoms persist or sooner if worsening of symptoms - COVID AND INFLUENZA A/B AND RSV PCR, ROUTINE 2. Acute cough - ICD9: 786.2, ICD10: R05.1 - XR CHEST 2V FRONTAL/LAT IMPRESSION: No acute radiographic abnormality. Dictated by : EMIL RUST MD 3. (more content not included)... [facility] 12-17-2024 Note HNO ID: [id number] Author: ZAKIA AUGUSTINE MD Service: ? Author Type: Physician Type: Progress Notes Filed: 12/17/2024 11:09 Note Text: [facility] Oliveira is a 39 year old female. Patient presents with: Ear Problem: bilateral ears feel clogged with pain x 2 days Pt with hx of ear infections now uri sx 2 days and eaqr pain feels clogged and fullness no sinus [pain no marks Ear Problem Associated symptoms include hearing loss. Pertinent negatives include no ear discharge or headaches. Review of Systems Constitutional: Negative for chills, fatigue and fever. HENT: Positive for congestion, ear pain and hearing loss. Negative for ear discharge, facial swelling, postnasal drip, sinus pressure and sinus pain. Neurological: Negative for dizziness and headaches. Objective BP 118/68 Pulse 110 Temp 37.1 ?C (98.7 ?F) Resp 16 Wt 71.5 kg (157 lb 10.1 oz) LMP 08/21/2015 (Exact Date) SpO2 99% BMI 27.92 kg/m? Physical Exam Vitals and nursing note reviewed. Constitutional: Appearance: Normal appearance. She is not ill-appearing. HENT: Ears: Comments: Right canal cerumen present left Tm red and bulging Nose: Congestion present. Mouth/Throat: Mouth: Mucous membranes are moist. Pharynx: Oropharynx is clear. Cardiovascular: Rate and Rhythm: Normal rate and regular rhythm. Heart sounds: Normal heart sounds. Pulmonary: Effort: Pulmonary effort is normal. Breath sounds: Normal breath sounds. No stridor. No wheezing, rhonchi or rales. Neurological: Mental Status: She is alert and oriented to person, place, and time. Psychiatric: Mood and Affect: Mood normal. Behavior: Behavior normal. {ASSESSMENT/PLAN: 1. Acute otitis media, left - ICD9: 382.9, ICD10: H66.92 Return here as needed - AMOXICILLIN 875 MG-POTASSIUM CLAVULANATE 125 MG TABLET For right ear peroxide drops place for wax presnt but no irrigation due to concern for OM Zakia Augustine MD Differential Diagnoses - OM is more likely for the following reason(s): suggested by HANDP - OE is less likely for the following reason(s): HANDP not suggestive Disposition The patient was discharged. Procedures [facility] 12-17-2024 History of Presen t illness Narrative [facility] Subjective Lawanda Oliveira is a 39 year old female. Patient presents with: Ear Problem: bilateral ears feel clogged with pain x 2 days Pt with hx of ear infections now uri sx 2 days and eaqr pain feels clogged and fullness no sinus [pain no marks Ear Problem Associated symptoms include hearing loss. Pertinent negatives include no ear discharge or headaches. Review of Systems Constitutional: Negative for chills, fatigue and fever. HENT: Positive for congestion, ear pain and hearing loss. Negative for ear discharge, facial swelling, postnasal drip, sinus pressure and sinus pain. Neurological: Negative for dizziness and headaches. Objective BP 118/68 Pulse 110 Temp 37.1 C (98.7 F) Resp 16 Wt 71.5 kg (157 lb 10.1 oz) LMP 08/21/2015 (Exact Date) SpO2 99% BMI 27.92 kg/m Physical Exam Vitals and nursing note reviewed. Constitutional: Appearance: Normal appearance. She is not ill-appearing. HENT: Ears: Comments: Right canal cerumen present left Tm red and bulging Nose: Congestion present. Mouth/Throat: Mouth: Mucous membranes are moist. Pharynx: Oropharynx is clear. Cardiovascular: Rate and Rhythm: Normal rate and regular rhythm. Heart sounds: Normal heart sounds. Pulmonary: Effort: Pulmonary effort is normal. Breath sounds: Normal breath sounds. No stridor. No wheezing, rhonchi or rales. Neurological: Mental Status: She is alert and oriented to person, place, and time. Psychiatric: Mood and Affect: Mood normal. Behavior: Behavior normal. {ASSESSMENT/PLAN: 1. Acute otitis media, left - ICD9: 382.9, ICD10: H66.92 Return here as needed - AMOXICILLIN 875 MG-POTASSIUM CLAVULANATE 125 MG TABLET For right ear peroxide drops place for wax presnt but no irrigation due to concern for OM Zakia Augustine MD Differential Diagnoses - OM is more likely for the following reason(s): suggested by H&P - OE is less likely for the following reason(s): H&P not suggestive Disposition The patient was discharged. Procedures documented in this encounter [facility] 12-17-2024 Instructions Zakia Augustine MD - 12/17/2024 11:06 AM EDT Otitis Media You have been diagnosed with otitis media. This is a middle ear infection. Otitis media is inflammation of the middle ear. It is most common in children 6 months to 3 years old. However, it can happen at any age. It is caused by either a bacteria or a virus and often follows a viral upper respiratory (lung) infection. Some otitis media symptoms are: Fever (temperature higher than 100.4 F / 38 C) and ear pain. There may also be a feeling of fullness in the ear or decreased hearing. If the eardrum ruptures (splits), there may also be drainage from the ear. In the [facility], otitis media is often treated with antibiotics. It is also often treated with pain medicines like acetaminophen (Tylenol ) or ibuprofen (Advil or Motrin ) and sometimes with pain-relieving eardrops. In many other countries, otitis media is not treated with antibiotics. However, the outcome seems to be the same: The ear clears up on its own! Most cases of otitis media get better over 2-3 days with treatment. Take the antibiotic as directed and finish the whole prescription. Follow up with your doctor in 4-6 weeks. This will be to make sure the fluid in the middle ear has cleared. YOU SHOULD SEEK MEDICAL ATTENTION IMMEDIATELY, EITHER HERE OR AT THE NEAREST EMERGENCY DEPARTMENT, IF ANY OF THE FOLLOWING OCCURS: You do not get better, despite treatment. Symptoms become worse. A severe headache, stiff neck, lethargy (excessive fatigue and sleepiness) or confusion develops. documented in this encounter [facility] 12-03-2024 Note HNO ID: [id number] Author: REGGIE ASHBY APRN.COOK FRY Service: ? Author Type: Nurse Practitioner Type: Progress Notes Filed: 12/03/2024 15:54 Note Text: [facility] Subjective Lawanda Oliveira is a 39 year old female. Patient presents with: Derm Problem: R hand index finger infection x1.5 months HPI patient is a 39-year-old female presents with a right index finger swelling and erythema around the nailbed for the last month and a half. States that it did open and drain 1 time and just came back. She denies any erythema or swelling is going up the hand. Denies any fever body aches or myalgia still has full range of motion of the finger but states the swelling will not go away. Review of Systems Constitutional: Negative for chills, fatigue and fever. Musculoskeletal: Negative for joint swelling. Skin: Positive for wound. Objective BP 148/95 Pulse 94 Temp 37.1 ?C (98.8 ?F) Resp 18 Wt 73.6 kg (162 lb 4.1 oz) LMP 08/21/2015 (Exact Date) SpO2 99% BMI 28.74 kg/m? PAST MEDICAL HISTORY Diagnosis Date Hearing loss IBS (irritable bowel syndrome) PAST SURGICAL HISTORY Procedure Laterality Date COLONOSCOPY FLX DX W/COLLJ SPEC WHEN PFRMD 3 to 4 years ago Colonoscopy ESOPHAGOGASTRODUODENOSCOPY TRANSORAL DIAGNOSTIC 3 to 4 years ago EGD EXTRACTION ERUPTED TOOTH/EXR September 2011 4 teeth. All at once. MYRINGOTOMY HX Tube R ear only. ALLERGIES Patient has no known allergies. MEDICATIONS venlafaxine XR (EFFEXOR XR) 225 mg tablet Take 1 tablet by mouth once daily. venlafaxine ER (EFFEXOR XR) 75 mg 24 hr capsule Take 150 mg by mouth once daily. (Patient not taking: Reported on 12/03/2024) LORazepam (ATIVAN) 0.5 mg Take by mouth three times daily as needed. benzonatate (TESSALON PERLE) 100 mg capsule Take 1 capsule by mouth three times daily as needed. (Patient not taking: Reported on 05/10/2019 ) albuterol HFA (PROVENTIL HFA, VENTOLIN HFA) 90 mcg/actuation inhaler Inhale 2 Puffs as instructed every 4 hours as needed. (Patient not taking: Reported on 05/10/2019 ) amitriptyline (ELAVIL) 25 mg tablet Take 25 mg by mouth daily at bedtime. (Patient not taking: Reported on 12/17/2022) albuterol HFA (PROAIR HFA) 90 mcg/actuation inhaler Inhale 2 Puffs as instructed every 4 hours as needed. (Patient not taking: Reported on 07/12/2018 ) triamcinolone (KENALOG) 0.025 % cream Apply 1 application to affected area twice daily. (Patient not taking: Reported on 07/12/2018 ) naproxen (NAPROSYN) 500 mg tablet Take 1 tablet by mouth twice daily with meals. (Patient not taking: Reported on 05/10/2019 ) FAMILY HISTORY Problem Relation Age of Onset Hearing Loss Father other (hirsutism [Other]) Mother other (Endometrosis [Other]) Mother Ovarian cysts Social History Tobacco Use Smoking status: Every Day Current packs/day: 0.50 Average packs/day: 0.5 packs/day for 6.0 years (3.0 ttl pk-yrs) Types: Cigarettes Smokeless tobacco: Never Substance Use Topics Alcohol use: Yes Comment: Occasionally Drug use: No Physical Exam Constitutional: General: She is not in acute distress. Appearance: Normal appearance. She is not ill-appearing or toxic-appearing. HENT: Head: Normocephalic and atraumatic. Pulmonary: Effort: Pulmonary effort is normal. Skin: Comments: Tenderness over the right index fold of right index fold with erythma and swelling Neurological: Mental Status: She is alert. {ASSESSMENT/PLAN: 1. Paronychia of finger of right hand - ICD9: 681.02, ICD10: L03.011 - No lymphangetic streaking, this was defined for patient to watch for and to seek medical care immediately if appears - Area of cellulitis defined with pen, seek further attention if this area continues to enlarge - - Follow up for with primary care provider if symptoms persist. - I and D in clinic - ER if erythema swelling, fever or worsening of symptoms such as sudden severe pain. - Started on Doxycline Reggie Ashby APRN.CNP Differential Diagnoses - Paronychia is more likely for the following reason(s): suggested by HANDP - Cellulitis is less likely for the following reason(s): HANDP not suggestive - Abscess is less likely for the following reason(s): HANDP not suggestive - Felon is less likely for the following reason(s): HANDP not suggestive Disposition The patient was discharged. OTC Medications were advised: Tylenol and Ibuprofen Incision and Drainage: right index finger Performed by: Reggie Ashby APRN.CNP Authorized by: Reggie Ashby APRN.CNP Informed Consent Consent Obtained: Verbal [place] Protocol SIGN IN TIME OUT Pre-Procedure Details: The area was prepped with alcohol and allowed to dry. Procedure Details: Number of Locations: 1 Location 1: Indication: Abscess Body area: Upper extremity Location Details: Right index finger Scalpel Size: 11 Incision Depth: Superficial and soft tissue Complexity: Simple Drainag (more content not included)... [facility] 12-03-2024 History of Presen t illness Narrative Associated Order(s): Incision and Drainage: right index finger Post-Procedure Diagnose(s): Paronychia of finger of right hand [facility] Subjective Lawanda Oliveira is a 39 year old female. Patient presents with: Derm Problem: R hand index finger infection x1.5 months HPI patient is a 39-year-old female presents with a right index finger swelling and erythema around the nailbed for the last month and a half. States that it did open and drain 1 time and just came back. She denies any erythema or swelling is going up the hand. Denies any fever body aches or myalgia still has full range of motion of the finger but states the swelling will not go away. Review of Systems Constitutional: Negative for chills, fatigue and fever. Musculoskeletal: Negative for joint swelling. Skin: Positive for wound. Objective BP 148/95 Pulse 94 Temp 37.1 C (98.8 F) Resp 18 Wt 73.6 kg (162 lb 4.1 oz) LMP 08/21/2015 (Exact Date) SpO2 99% BMI 28.74 kg/m PAST MEDICAL HISTORY Diagnosis Date Hearing loss IBS (irritable bowel syndrome) PAST SURGICAL HISTORY Procedure Laterality Date COLONOSCOPY FLX DX W/COLLJ SPEC WHEN PFRMD 3 to 4 years ago Colonoscopy ESOPHAGOGASTRODUODENOSCOPY TRANSORAL DIAGNOSTIC 3 to 4 years ago EGD EXTRACTION ERUPTED TOOTH/EXR September 2011 4 teeth. All at once. MYRINGOTOMY HX Tube R ear only. ALLERGIES Patient has no known allergies. MEDICATIONS venlafaxine XR (EFFEXOR XR) 225 mg tablet Take 1 tablet by mouth once daily. venlafaxine ER (EFFEXOR XR) 75 mg 24 hr capsule Take 150 mg by mouth once daily. (Patient not taking: Reported on 12/03/2024) LORazepam (ATIVAN) 0.5 mg Take by mouth three times daily as needed. benzonatate (TESSALON PERLE) 100 mg capsule Take 1 capsule by mouth three times daily as needed. (Patient not taking: Reported on 05/10/2019 ) albuterol HFA (PROVENTIL HFA, VENTOLIN HFA) 90 mcg/actuation inhaler Inhale 2 Puffs as instructed every 4 hours as needed. (Patient not taking: Reported on 05/10/2019 ) amitriptyline (ELAVIL) 25 mg tablet Take 25 mg by mouth daily at bedtime. (Patient not taking: Reported on 12/17/2022) albuterol HFA (PROAIR HFA) 90 mcg/actuation inhaler Inhale 2 Puffs as instructed every 4 hours as needed. (Patient not taking: Reported on 07/12/2018 ) triamcinolone (KENALOG) 0.025 % cream Apply 1 application to affected area twice daily. (Patient not taking: Reported on 07/12/2018 ) naproxen (NAPROSYN) 500 mg tablet Take 1 tablet by mouth twice daily with meals. (Patient not taking: Reported on 05/10/2019 ) FAMILY HISTORY Problem Relation Age of Onset Hearing Loss Father other (hirsutism [Other]) Mother other (Endometrosis [Other]) Mother Ovarian cysts Social History Tobacco Use Smoking status: Every Day Current packs/day: 0.50 Average packs/day: 0.5 packs/day for 6.0 years (3.0 ttl pk-yrs) Types: Cigarettes Smokeless tobacco: Never Substance Use Topics Alcohol use: Yes Comment: Occasionally Drug use: No Physical Exam Constitutional: General: She is not in acute distress. Appearance: Normal appearance. She is not ill-appearing or toxic-appearing. HENT: Head: Normocephalic and atraumatic. Pulmonary: Effort: Pulmonary effort is normal. Skin: Comments: Tenderness over the right index fold of right index fold with erythma and swelling Neurological: Mental Status: She is alert. {ASSESSMENT/PLAN: 1. Paronychia of finger of right hand - ICD9: 681.02, ICD10: L03.011 - No lymphangetic streaking, this was defined for patient to watch for and to seek medical care immediately if appears - Area of cellulitis defined with pen, seek further attention if this area continues to enlarge - - Follow up for with primary care provider if symptoms persist. - I and D in clinic - ER if erythema swelling, fever or worsening of symptoms such as sudden severe pain. - Started on Doxycline Reggie Ashby APRN.CNP Differential Diagnoses - Paronychia is more likely for the following reason(s): suggested by H&P - Cellulitis is less likely for the following reason(s): H&P not suggestive - Abscess is less likely for the following reason(s): H&P not suggestive - Felon is less likely for the following reason(s): H&P not suggestive Disposition The patient was discharged. OTC Medications were advised: Tylenol and Ibuprofen Incision and Drainage: right index finger Performed by: Reggie Ashby APRN.CNP Authorized by: Reggie Ashby APRN.CNP Informed Consent Consent Obtained: Verbal [place] Protocol SIGN IN TIME OUT Pre-Procedure Details: The area was prepped with alcohol and allowed to dry. Procedure Details: Number of Locations: 1 Location 1: Indication: Abscess Body area: Upper extremity Location Details: Right index finger Scalpel Size: 11 Incision Depth: Superficial and soft tissue Complexity: Simple Drainage: Green and purulent Drainage Amount: Small Drainage Device: None Medications: 2 mL lidocaine 2 % Comments: Digital block with non-epi, buffered palmar approach Patient tolerated procedure well documented in this encounter [facility] 10-04-2023 History of Presen t illness Narrative Images from the original note were not included. This note was created using [employer]. Subjective Lawanda Oliveira is a 38 year old female. HPI Pt awoke yesterday with pain in the right side of her throat. No known sick exposures Review of Systems Constitutional: Negative for fatigue and fever. HENT: Positive for congestion and sore throat. Respiratory: Positive for cough. Objective BP 120/64 Pulse 66 Temp 36.7 C (98 F) Resp 16 Wt 72.2 kg (159 lb 2.8 oz) LMP 08/21/2015 (Exact Date) SpO2 98% BMI 28.20 kg/m Physical Exam Vitals and nursing note reviewed. Constitutional: General: She is not in acute distress. Appearance: Normal appearance. She is not ill-appearing. HENT: Head: Normocephalic. Mouth/Throat: Mouth: Mucous membranes are moist. Pharynx: No oropharyngeal exudate or posterior oropharyngeal erythema. Comments: No obvious dental caries noted Eyes: Conjunctiva/sclera: Conjunctivae normal. Neck: Comments: Enlarged tender right anterior cervical lymph node Cardiovascular: Rate and Rhythm: Normal rate and regular rhythm. Pulmonary: Effort: Pulmonary effort is normal. Breath sounds: Normal breath sounds. Musculoskeletal: General: Normal range of motion. Cervical back: Normal range of motion. Lymphadenopathy: Cervical: Cervical adenopathy present. Skin: General: Skin is warm and dry. Neurological: General: No focal deficit present. Mental Status: She is alert. Psychiatric: Mood and Affect: Mood normal. Behavior: Behavior normal. Assessment and Plan ASSESSMENT/PLAN: 1. Sore throat - ICD9: 462, ICD10: J02.9 (primary diagnosis) As below - STREP A MOLECULAR (POC) 2. Lymphadenopathy, cervical - ICD9: 785.6, ICD10: R59.0 Strep test was negative here in urgent care. I do suspect her symptoms are related to the mildly enlarged right-sided cervical lymph node. I did not appreciate any dental caries or dental infection or any other specific reason for the enlarged lymph node. There was no sign of peritonsillar abscess. I discussed with her that her symptoms are most likely viral in nature and she should use ibuprofen and or Tylenol as needed for pain and follow-up with PCP. Patient comfortable with plan. Frank Fam APRN.YOVANA documented in this encounter [facility] 12-17-2022 History of Presen t illness Narrative This note was created using [employer]. Subjective Lawanda Jonas is a 37 year old female. HPI Patient presents with sore throat, cough congestion headache over the past week. Earlier in the week she had a 102 temp. She denies vomiting or diarrhea. She has had body aches and chills. She was around a child that had strep and was also told she had a viral illness on top of that. 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 She did take some ibuprofen this morning. She does have a history of migraines and her headache feels similar. She is sensitive to light and sound. Review of Systems Constitutional: Positive for chills, fatigue and fever. HENT: Positive for congestion and sore throat. Negative for ear pain. Respiratory: Positive for cough and shortness of breath. Negative for wheezing. Cardiovascular: Negative. Gastrointestinal: Negative. Genitourinary: Negative. Musculoskeletal: Positive for myalgias. Neurological: Positive for headaches. All other systems reviewed and are negative. PAST MEDICAL HISTORY Diagnosis Date Hearing loss IBS (irritable bowel syndrome) Current Outpatient Medications Medication Sig Dispense Refill venlafaxine ER (EFFEXOR XR) 75 mg 24 hr capsule Take 75 mg by mouth once daily. LORazepam (ATIVAN) 0.5 mg Take by mouth three times daily as needed. predniSONE (DELTASONE) 20 mg tablet Take 2 tablets by mouth once daily for 5 days. 10 tablet 0 benzonatate (TESSALON PERLE) 100 mg capsule Take 1 capsule by mouth three times daily as needed. (Patient not taking: Reported on 05/10/2019 ) 60 capsule 0 albuterol HFA (PROVENTIL HFA, VENTOLIN HFA) 90 mcg/actuation inhaler Inhale 2 Puffs as instructed every 4 hours as needed. (Patient not taking: Reported on 05/10/2019 ) 1 Inhaler 0 amitriptyline (ELAVIL) 25 mg tablet Take 25 mg by mouth daily at bedtime. (Patient not taking: Reported on 12/17/2022) albuterol HFA (PROAIR HFA) 90 mcg/actuation inhaler Inhale 2 Puffs as instructed every 4 hours as needed. (Patient not taking: Reported on 07/12/2018 ) 1 Inhaler 0 triamcinolone (KENALOG) 0.025 % cream Apply 1 application to affected area twice daily. (Patient not taking: Reported on 07/12/2018 ) 15 g 0 naproxen (NAPROSYN) 500 mg tablet Take 1 tablet by mouth twice daily with meals. (Patient not taking: Reported on 05/10/2019 ) 50 tablet 6 No current facility-administered medications for this visit. PAST SURGICAL HISTORY Procedure Laterality Date COLONOSCOPY FLX DX W/COLLJ SPEC WHEN PFRMD 3 to 4 years ago Colonoscopy ESOPHAGOGASTRODUODENOSCOPY TRANSORAL DIAGNOSTIC 3 to 4 years ago EGD EXTRACTION ERUPTED TOOTH/EXR September 2011 4 teeth. All at once. MYRINGOTOMY HX Tube R ear only. FAMILY HISTORY Problem Relation Age of Onset Hearing Loss Father other (hirsutism [Other]) Mother other (Endometrosis [Other]) Mother Ovarian cysts Social History Tobacco Use Smoking status: Every Day Packs/day: 0.50 Years: 6.00 Total pack years: 3.00 Types: Cigarettes Smokeless tobacco: Never Substance Use Topics Alcohol use: Yes Comment: Occasionally Drug use: No Objective BP 138/86 Pulse 109 Temp 37.2 C (98.9 F) (Temporal) Resp 18 Wt 76 kg (167 lb 9.6 oz) LMP 08/21/2015 (Exact Date) SpO2 98% BMI 29.69 kg/m Physical Exam Vitals reviewed. Constitutional: Appearance: Normal appearance. HENT: Head: Normocephalic and atraumatic. Right Ear: Tympanic membrane, ear canal and external ear normal. Left Ear: Tympanic membrane, ear canal and external ear normal. Nose: Congestion present. Mouth/Throat: Mouth: Mucous membranes are moist. Pharynx: Oropharynx is clear. Cardiovascular: Rate and Rhythm: Normal rate and regular rhythm. Heart sounds: Normal heart sounds. Pulmonary: Effort: Pulmonary effort is normal. Breath sounds: Normal breath sounds. Musculoskeletal: Cervical back: Neck supple. Skin: General: Skin is warm and dry. Findings: No rash. Neurological: General: No focal deficit present. Mental Status: She is alert. Assessment and Plan ASSESSMENT/PLAN: 1. Acute URI - ICD9: 465.9, ICD10: J06.9 (primary diagnosis) - cxr clear - Discussed viral etiology and rationale for treatment. - Alere Strep Test neg, no culture pending - Symptomatic treatment with prn analgesia - Supportive care with fluids and rest - Follow up in 3-5 days if symptoms persist or sooner if worsening of symptoms - STREP A MOLECULAR (POC) 2. Fever, unspecified fever cause - ICD9: 780.60, ICD10: R50.9 - XR CHEST 2V FRONTAL/LAT Agnieszka Hassan PA-C documented in this encounter [facility] 12-17-2022 Miscellaneous Notes Formattin g of this note might be different from the original. Pt returned call and given provider's message below with verbalized understanding. Left message for patient to return call. Sonia Sears Please call and let patient know her chest x-ray was clear. I did send in prednisone and a cough medication. Can continue Tylenol [id number] with this. May return to work tomorrow if feeling improved. documented in this encounter [facility] 12-17-2022 History of Presen t illness Narrative Radiology Service Progress Note PATIENT NAME: Lawanda Jonas DATE OF SERVICE: December 17, 2022 TIME: 12:41 PM PATIENT IDENTITY VERIFICATION COMPLETED USING TWO (2) IDENTIFIERS: Name and Date of confirmed by patient verbally. FALL SCREENING: Has the patient had 2 falls in the last year or 1 fall with injury or currently using an Ambulatory Assistive Device (Walker, Cane, Wheelchair, Crutches, etc.)? No PATIENT GENDER DATA: Female. status: : No status: NO. PATIENT RELEVANT IMPLANT DATA REVIEWED: Not Applicable RADIOLOGY DEPARTMENT: General X-ray: Exam(s) Completed: Chest X-Ray PERIPHERAL IV DATA: Not applicable SIGNED BY: RT Foreign(R) December 17, 2022 12:41 PM documented in this encounter [facility] 09-22-2022 History of Presen t illness Narrative 09/22/2022 Patient presents with: Ear Pain: Pt reported bilateral ear pain. Cough nasal congestion x4 days. SUBJECTIVE: This is a 37 year old that is here today for Complaint(s) of sinus pressure and congestion x 4 days. Has not tried anything for her symptoms. Notes sinus pain associated. She does have a cough associated. Denies fever/chills, SOB, wheezing, vomiting, diarrhea. Intermittent ear discomfort, having pain currently. Anxiety-On Effexor daily and ativan prn. Overall worsening today. Just started a new job last week and thinks it might be related. May be related to calling off yesterday and today for being sick and worries this will effect her job. She overall really likes the job and feels it is going well. Denies SI/HI. PAST MEDICAL HISTORY Diagnosis Date Hearing loss IBS (irritable bowel syndrome) ALLERGIES Patient has no allergy information on record. MEDICATIONS Current Outpatient Medications Medication Sig LORazepam (ATIVAN) 0.5 mg Take by mouth three times daily as needed. venlafaxine ER (EFFEXOR XR) 75 mg 24 hr capsule Take 75 mg by mouth once daily. benzonatate (TESSALON PERLE) 100 mg capsule Take 1 capsule by mouth three times daily as needed. (Patient not taking: Reported on 05/10/2019 ) albuterol HFA (PROVENTIL HFA, VENTOLIN HFA) 90 mcg/actuation inhaler Inhale 2 Puffs as instructed every 4 hours as needed. (Patient not taking: Reported on 05/10/2019 ) amitriptyline (ELAVIL) 25 mg tablet Take 25 mg by mouth daily at bedtime. albuterol HFA (PROAIR HFA) 90 mcg/actuation inhaler Inhale 2 Puffs as instructed every 4 hours as needed. (Patient not taking: Reported on 07/12/2018 ) triamcinolone (KENALOG) 0.025 % cream Apply 1 application to affected area twice daily. (Patient not taking: Reported on 07/12/2018 ) naproxen (NAPROSYN) 500 mg tablet Take 1 tablet by mouth twice daily with meals. (Patient not taking: Reported on 05/10/2019 ) No current facility-administered medications for this visit. SOCIAL HISTORY Social History Tobacco Use Smoking status: Every Day Packs/day: 0.50 Years: 6.00 Pack years: 3.00 Types: Cigarettes Smokeless tobacco: Never Substance Use Topics Alcohol use: Yes Comment: Occasionally Drug use: No REVIEW OF SYSTEMS See HPI OBJECTIVE: BP 140/90 Pulse 88 Temp 36.8 C (98.2 F) (Tympanic) Resp 20 Wt 75.5 kg (166 lb 6.4 oz) LMP 08/21/2015 (Exact Date) SpO2 97% BMI 29.48 kg/m APPEARANCE Well appearing, alert, in no acute distress, well-hydrated, well nourished. EYES PERRLA, conjunctiva and sclera normal. EARS External ears normal, canals clear. Right TM normal. Left TM dull, erythematous NOSE/SINUS Nares normal. Septum midline. Mucosa normal. No drainage or sinus tenderness. THROAT normal, no erythema NECK Supple, no adenopathy HEART RRR with normal S1 and S2, LUNG clear to auscultation Appearance well kept, cooperative Behavior: good eye contact Speech: Normal Mood: anxious Affect: appropriate Perceptions: Hallucinations-none depersonalization-none Thought process: Goal directed Thought Content: No Preoccupations, obsessions, No HI/SI, No Delusions Intelligence level: normal Insight:good Judgment:good ASSESSMENT/PLAN: 1. Acute otitis media, left - ICD9: 382.9, ICD10: H66.92 (primary diagnosis) - Will begin treatment with as per antibiotic as written, see orders - The patient should also be given warm salt water gargles, throat lozenges and/or OTC throat spray as needed and nasal saline gtts and suction prn for the first 5-7 days of treatment. - Follow up in 3-5 days if symptoms persist or worsen. - AMOXICILLIN 875 MG TABLET 2. RAKESH (generalized anxiety disorder) - ICD9: 300.02, ICD10: F41.1 Worsening today. Has ativan at home. Suspect situational stress contributing. Reviewed relaxation techniques Advised scheduling with counseling center, patient agrees. Will call today. No SI/HI. Reviewed plan if develops The patient indicates understanding of these issues and agrees with the plan. Reviewed red flags and when to seek care sooner. Dali Neff PA-C documented in this encounter [facility] Evaluation note Diagnosis Acute otitis media, left- Primary Unspecified otitis media RAKESH (generalized anxiety disorder) Generalized anxiety disorder [facility] Viral URI- Primary Acute upper respiratory infections of unspecified site [facility] Acute URI- Primary Acute upper respiratory infections of unspecified site Fever, unspecified fever cause documented [facility] this encounter [facility] noteNo assessment information availableWooTrinity Health [facility] Work Phone: Evaluation note* Diagnosis Sore throat- Primary Acute pharyngitis Lymphadenopathy, cervical Enlargement of lymph nodes documented in this encounter [facility] note* Diagnosis Fever, unspecified fever cause documented in this encounter [facility] note* Diagnosis Paronychia of finger of right hand- Primary documented in this encounter [facility] note* Diagnosis Acute otitis media, left- Primary Unspecified otitis media [facility] Additional Instructions Please follow-up with your primary care doctor to discuss migraine medication [facility] Work Phone: Discharge Instructions * Attachments The following attachments cannot be sent through Care Everywhere. * Tooth Decay ([place]) * Root Canal: General Info ([place]) * Tooth and Gum Pain ([place]) documented in this encounter Assessments Diagnosis Pain, dental- Primary Unspecified disorder of the teeth and supporting structures Dental caries Unspecified dental caries Summary Purpose Family History No Family History Records FoundNo Family History Records FoundNo Family History Records FoundNo Family History Records FoundNo Family History Records Found Advance Directives No Advanced Directives Records Found Advance Directive Response Recorded Date/ Time Advance Directives No April 6:39pm Living Will No March 31 1:53pm Power of 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 Cough nasal congestion x4 days. Reason Comments Results Reason Comments Pain, Throat Pt reported + strep exposure, migraine Marks, x wk. Reason Comments Sore Throat X2 days Specialty Diagnoses / Procedures Referred By Justin frederick Referred To Contact [facility] Diagnoses sore throat x 2 days Procedures EST SAME DAY [facility] [address] [place] [address] Referral ID Status Reason Start Date Expiration Date Visits Requested Visits Authorized [id number] Authorized Patient Cleared - Qualified 100% FAS 10/04/2023 01/02/2024 99 99 Reason Comments Derm Problem R hand index finger infection x1.5 months Reason Comments Ear Problem bilateral ears feel clogged with pain x 2 days Ordered Prescriptions (unrec ognized section and content) Prescription Sig Dispensed Refills Start Date End Da te HYDROcodone-acetaminophe n (NORCO) 5-325 MG per tabletIndications:Pain, dental,Dental caries Take 1 tablet by mouth every 6 hours as needed for Pain for up to 3 days. Intended supply: 3 days. Take lowest dose possible to manage pain 8 tablet 0 09/02/2020 09/05/2020 penicillin v potassium (VEETID) 500 MG tablet Take 1 tablet by mouth 4 times daily for 10 days 40 tablet 0 09/02/2020 09/12/2020 INFORMATION SOURCE (unrecogn ized section and content) DATE CREATED AUTHOR 10/31/2020 [facility] [place] DATE CREATED AUTHOR AUTHOR'S ORGANIZ ATION 05/20/2022 [facility] DATE CREATED AUTHOR AUTHOR'S ORGANIZ ATION 01/24/2023 [facility] ([place]) DATE CREATED AUTHOR AUTHOR'S ORGANIZ ATION 10/30/2023 [facility] DATE CREATED AUTHOR AUTHOR'S ORGANIZ ATION 01/06/2025 [facility] Source Comments (unrecognize d section and content) In the event this informatio n is protected by the Federal Confidentiality of Alcohol and Drug Abuse Patient Records regulations: The Federal rules restrict any use of the information to criminally investigate or prosecute any alcohol or drug abuse patient.[facility] the event this information is protected by the Federal Confidentiality of Alcohol and Drug Abuse Patient Records regulations: The Federal rules restrict any use of the information to criminally investigate or prosecute any alcohol or drug abuse patient.[facility] the event this information is protected by the Federal Confidentiality of Alcohol and Drug Abuse Patient Records regulations: The Federal rules restrict any use of the information to criminally investigate or prosecute any alcohol or drug abuse patient.[facility] the event this information is protected by the Federal Confidentiality of Alcohol and Drug Abuse Patient Records regulations: The Federal rules restrict any use of the information to criminally investigate or prosecute any alcohol or drug abuse patient.[facility] the event this information is protected by the Federal Confidentiality of Alcohol and Drug Abuse Patient Records regulations: The Federal rules restrict any use of the information to criminally investigate or prosecute any alcohol or drug abuse patient.[facility] the event this information is protected by the Federal Confidentiality of Alcohol and Drug Abuse Patient Records regulations: The Federal rules restrict any use of the information to criminally investigate or prosecute any alcohol or drug abuse patient.[facility] the event this information is protected by the Federal Confidentiality of Alcohol and Drug Abuse Patient Records regulations: The Federal rules restrict any use of the information to criminally investigate or prosecute any alcohol or drug abuse patient.[facility] Care Teams (unrecognized sec tion and content) Marketing And Communications Officer Relationship Specialty Start Date End Date Zakia Nunez IV, DO [address] [place] [id number] PCP - General Family Medicine 09/22/22 Marketing And Communications Officer Relationship Specialty Start Date End Date Zakia Nunez IV, DO [address] [place] [phone] PCP - General Family Medicine 09/22/22 Marketing And Communications Officer Relationship Specialty Start Date End Date Zakia Nunez IV, DO [address] [place] [id number] PCP - General Family Medicine 09/22/22 Team Status: Active Member Role Status Dates No Primary Care Physician Family Provider Active Dr. Zakia Nunez DO Primary Care Provider Active Team Status: Inactive Member Role Status Dates No Primary Care Physician Primary Care Provider, Refer ring Provider Active Jose OCHOA, PA Attending Provider Active Team Status: Inactive Member Role Status Dates Dr. Zakia Nunez DO Primary Care Provider Active Dr. Tyrel Mares MD Emergency Provider Active Marketing And Communications Officer Relationship Specialty Start Date End Date Zakia Nunez IV DO [address] [place] [id number] PCP - General Family Medicine 09/22/22 Marketing And Communications Officer Relationship Specialty Start Date End Date Zakia Nunez IV, DO [address] [place] [id number] PCP - General Family Medicine 09/22/22 Marketing And Communications Officer Relationship Specialty Start Date End Date Zakia Nunez IV DO [address] [place] [phone] PCP - General Family Medicine 09/22/22 Goals (unrecognized section and content) Goals may be documented in a n alternate section FOR RECORDS PERTAINING TO PATIENTS WHO ARE OR HAVE BEEN ENROLLED IN A CHEMICAL DEPENDENCY/SUBSTANCEABUSE PROGRAM, SOME INFORMATION MAY BE OMITTED. This clinical summary was aggregated from multiple sources. Caution should be exercised in using it in the provision of clinical care. This summary normalizes information from multiple sources, and as a consequence, information in this document may materially change the coding, format and clinical context of patient data. In addition, data may be omitted in some cases. CLINICAL DECISIONS SHOULD BE BASED ON THE PRIMARY CLINICAL RECORDS. [employer] [facility]. provides no warranty or guarantee of the accuracy or completeness of information in this document.
[2025-03-16 18:59] LABS: AST(SGOT) 21 U/L (<=31); Alanine Aminotransfer ALT/SGPT 13 U/L (<=34); Albumin, Serum 4.5 g/dL (3.5-5.0); Alkaline Phosphatase 99 U/L (35-104); Anion Gap 13 (5-15); BUN 11 mg/dL (4-19); BUN/Creat Ratio 16.1 RATIO (10-20); Calcium,Total 9.2 mg/dL (7.6-11.0); Carbon Dioxide 23.3 mmol/L (21.0-32.0); Chloride 101 mmol/L (98-108); Estimated Creatinine Clearance 107.37 ml/min (50-250); Globulin 2.8 g/dL (2.2-4.2); Glucose 97 mg/dL (70-99); Lipase 20 U/L (13-75); Potassium 4.0 mmol/L (3.3-5.1)
[2025-03-16 19:00] VITALS: BP 140/80; PULSE 97; RESP 18; O2SAT 99
[2025-03-16 21:00] VITALS: BP 137/81; BP 140/80; PULSE 90; PULSE 97; RESP 16; RESP 18; TEMP 36.9; O2SAT 99
== END 2025-03-16 21:26 | disposition home or self-care (01) ==
PROVIDERS: Emergency Provider Emergency Medicine; PCP Student in an Organized Health Care Education/Training Program; Visit Provider Emergency Medicine
DX: R10.11 Right upper quadrant pain (principal); R11.2 Nausea with vomiting, unspecified; R19.7 Diarrhea, unspecified; F17.210 Nicotine dependence, cigarettes, uncomplicated; Z90.49 Acquired absence of other specified parts of digestive tract; Z90.711 Acquired absence of uterus with remaining cervical stump
CPT/HCPCS: 76705; 80053; 83690; 85025; 96374; 96375; 96376; 99284; A4216; J2405